=== PATIENT | male | born 1980 | race Caucasian/White ===

== ENCOUNTER 2020-11-24 17:26 | Emergency (ER) | payer MEDICARE, MEDICAID, SELFPAY ==
--- NOTE | 2020-11-24 17:58 | XRR_ITS ---
PROCEDURE INFORMATION: Exam: XR Chest Exam date and time: 11/24/2020 6:08 PM Age: 40 years old Clinical indication: Patient HX: Was in hospital 1 month ago; Was told has chf. Had gb surgery. C/O still having shortness of breath and getting worse; Additional info: Cp TECHNIQUE: Imaging protocol: XR of the chest. Views: 1 view. COMPARISON: No relevant prior studies available. FINDINGS: Lungs: Unremarkable. No consolidation. Pulmonary vascularity is within normal limits. Pleural spaces: Unremarkable. No pleural effusion. No pneumothorax. Heart/Mediastinum: There is cardiomegaly. Bones/joints: No acute abnormality. XR/XR chest 1V portable [id number] IMPRESSION: No acute findings.
--- NOTE | 2020-11-24 17:58 | ECG_ITS ---
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 Measurements Intervals [place] Rate: 74 P: 54 VA: 159 QRS: -27 QRSD: 113 T: 41 QT: 355 QTc: 395 Interpretive Statements SINUS RHYTHM POSSIBLE LEFT ATRIAL ENLARGEMENT [-0.1mV P WAVE IN V1/V2] MODERATE INTRAVENTRICULAR CONDUCTION DELAY [105+ ms QRS DURATION, 80+ ms Q/S IN V1/V2, NO Q AND 60+ ms R IN I/aVL/V5/V6] MODERATE T-WAVE ABNORMALITY, CONSIDER LATERAL ISCHEMIA [-0.1+ mV T WAVE IN I/aVL/V5/V6] WARNING: DATA QUALITY MAY AFFECT INTERPRETATION No previous ECG available for comparison Electronically Signed On 11-25-2020 9:22:01 CDT by Fanny Moran M.D. [email or web address] [employer] a Man./store/[id number]
[2020-11-24 18:06] VITALS: BP 159/103; PULSE 90; RESP 14; TEMP 36.6; O2SAT 98; BMI 34.8
--- NOTE | 2020-11-24 19:58 | ECG_ITS ---
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 Measurements Intervals [place] Rate: 81 P: 60 CO: 168 QRS: -20 QRSD: 105 T: 44 QT: 375 QTc: 437 Interpretive Statements SINUS RHYTHM POSSIBLE LEFT ATRIAL ENLARGEMENT [-0.1mV P WAVE IN V1/V2] NONSPECIFIC T-WAVE ABNORMALITY Compared to ECG 11/24/2020 19:16:24 Intraventricular conduction delay no longer present Possible ischemia no longer present T-wave abnormality still present Electronically Signed On 11-25-2020 17:37:13 CDT by Fanny Moran M.D. [id number]
[2020-11-24 20:53] VITALS: BP 160/100; PULSE 83; RESP 21; O2SAT 100
[2020-11-24 21:32] VITALS: BP 151/83; PULSE 84; RESP 17; O2SAT 100
[2020-11-24 22:03] LABS: Basophils # 0.1 10^3/uL (0.0-0.1); Basophils % 0.5 %; Eosinophils # 0.3 10^3/uL (0.0-0.8); Eosinophils % 2.9 %; Hematocrit 46.2 % (42.0-52.0); Hemoglobin 15.3 g/dL (11.7-16.6); Lymphocytes # 4.3 10^3/uL (0.8-4.8); Lymphocytes % 37.9 %; Mean Corpuscular HGB Conc 33.1 g/dL (30.0-36.0); Mean Corpuscular Hemoglobin 27.8 pg (28.0-34.0); Mean Corpuscular Volume 83.8 fL (80-94); Mean Platelet Volume 9.8 fL (7.4-10.4); Monocytes # 0.7 10^3/uL (0.2-0.9); Monocytes % 6.3 %; Neutrophils % 51.9 %; Nucleated Red Blood Cells % 0 %; Platelet Count 257 10^3/cmm (130-400); Red Blood Count 5.51 10^6/uL (4.1-5.3); Red Cell Distribution Width 14.1 % (12.1-15.1); White Blood Count 11.2 10^3/uL (4.0-10.0)
[2020-11-24 22:16] LABS: INR 0.97 (0.8-1.2)
[2020-11-24 22:19] LABS: D Dimer 0.31 ug/mIFEU (0-0.59)
[2020-11-24 22:21] LABS: Lactate (Lactic Acid level) 0.9 mmol/L (0.5-2.2)
[2020-11-24 22:24] LABS: Troponin(5th) Baseline 6 ng/L (0-15)
[2020-11-24 22:32] LABS: Alanine Aminotransferase 12 U/L (0-41); Albumin Level 4.5 g/dL (3.5-5.2); Alkaline Phosphatase 72 IU/L (40-130); Aspartate Amino Transferase 15 U/L (0-40); Blood Urea Nitrogen 14 mg/dL (6-20); Calcium 8.9 mg/dL (8.5-10.5); Carbon Dioxide 26 mmol/L (22-29); Chloride 102 mmol/L (98-107); Globulin 2.3 g/dL (1.3-4.6); Glomerular Filtration Rate 73.4 mL/min (90-130); Glucose 91 mg/dL (65-115); NT Pro B Type Natriuretic Pept 1618 pg/mL (0-125); Osmolality Calculated 286 mOsm/kg (285-295); Sodium 138 mmol/L (136-145); Total Bilirubin 0.4 mg/dL (0.15-1.2); Total Protein 6.8 g/dL (6.6-8.7)
[2020-11-24 22:33] LABS: Anion Gap 14.4 (5-19); Potassium 4.4 mmol/L (3.5-5.1)
[2020-11-24 23:11] VITALS: BP 135/91; PULSE 92; RESP 16; O2SAT 98
[2020-11-24 23:20] LABS: Troponin 5 2HR 10.18 ng/L (0-15); Troponin 5 2HR Delta 4.18 ABS# (0-10)
--- NOTE | 2020-11-24 23:37 | ED_ITS ---
HPI - General Adult General: Chief complaint: General Medical Stated complaint: FLUID AROUND HEART, SOB, STATES SENT BY PCP Time Seen by Provider: 11/24/20 20:51 History of Present Illness: HPI narrative: The patient is a 40-year-old male who comes to the ER complaining of shortness of breath related to his heart failure. He says he has been out of his medications for several days and needs refills on them. He sees a nougat cutter machine Dr. Carver in [place] and he will call him for refills tomorrow. Denies chest pain in the ER. He says he gets increasing shortness of breath which has been worsening with activity related to being out of his Lasix. The pharmacist got a list of his medications from the pharmacy and they will be printed for him. 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 Severity: moderate Associated symptoms: Reports no associated symptoms and short of breath; Deny chest pain, confusion, dyspnea, headache(s) or rash Review of Systems General: Reports: 10 or more systems reviewed and unremarkable except in HPI and below Const: Denies: fatigue Eyes: Denies: change in vision, blurry vision or eye redness ENMT: Denies: throat pain, swelling of lips/tongue, ear or mastoid pain or nasal congestion Card: Denies: chest pain Resp: Reports: other (dyspnea on exertion only.); Denies: dyspnea, productive cough or non-productive cough GI: Denies: abdominal pain, diarrhea or GI cramping : Denies: flank pain, urinary frequency or urinary urgency Musc: Denies: neck pain, back pain, extremity pain, joint pain, joint redness, limited range of motion or muscle weakness Skin/Breast: Denies: rash, pruritus, erythema, skin pain or skin tenderness Neuro: Denies: headache(s), numbness in extremities, weakness in extremities, sensory changes, difficulty walking, dizziness, confusion or Slurred speech present Psych: Denies: anxiety or depression Endo: Denies: polyuria All/Imm: Denies: urticaria, throat swelling or tongue swelling Physical Exam Const: COMMON NORMALS: no acute distress, average body habitus, patient oriented x3, no limitations, healthy appearing, alert and well nourished GENERAL APPEARANCE: cooperative, comfortable, well kempt and well developed ORIENTATION/CONSCIOUSNESS: Yes awake, Yes oriented to person, Yes oriented to place and Yes oriented to time HENMT: COMMON NORMALS: normocephalic, external ears normal and Normal external nose present HEAD & SCALP: normal to inspection and normocephalic NOSE: Normal external nose present EXTERNAL EAR: Yes external ears normal MOUTH: Normal oral and palatal mucosa present THROAT: posterior oropharynx normal Eye: COMMON NORMALS: Equal, round and reactive pupils present and EOMs intact bilaterally GENERAL EYE: appearance normal, both eyes and all related structures PUPIL: Yes Equal, round and reactive pupils present Neck/C-Spine: COMMON NORMALS: full ROM, no lymphadenopathy, no meningeal signs and no JVD GENERAL: Yes normal visual inspection Lymph: LYMPHATIC: no lymphadenopathy noted Chest: COMMONS NORMALS: normal inspection of the chest and normal palpation of entire chest wall Resp: COMMON NORMALS: normal respiratory effort, No retractions, No use of accessory muscles, clear to auscultation bilaterally and percussion normal EFFORT & INSPECTION: Yes able to speak in complete sentences AUSCULTATION: clear to auscultation bilaterally PERCUSSION: percussion normal Cardio: COMMON NORMALS: no JVD, regular rate, regular rhythm, S1 normal heart sound present, S2 normal heart sound present and Peripheral pulses 2+ throughout RATE: regular rate RHYTHM: regular rhythm HEART SOUNDS: S1 normal heart sound present and S2 normal heart sound present PERIPHERAL PULSES: Peripheral pulses 2+ throughout GI: COMMON NORMALS: Normal to inspection, nondistended, normoactive bowel sounds present, Soft to palpation, non-tender and no masses INSPECTION: Yes normal to inspection PALPATION: Yes Soft to palpation : COMMON NORMALS: Yes no CVA tenderness BLADDER/KIDNEY EXAM: Yes no CVA tenderness Back/Pelvis: COMMON NORMALS: no CVA tenderness, thoracic and lumbar spine normal to inspection, no thoracic nor lumbar tenderness and thoraco-lumbar ROM normal Extremity: COMMON NORMALS: normal to inspection, full ROM, capillary refill normal, no joint enlargement and no pedal edema GENERAL: Yes normal exam except as noted Neuro: COMMON NORMALS: patient oriented x3, CN's II-XII intact bilaterally, moves all extremities, no focal motor deficits, no sensory deficits noted and gait normal SENSORIUM/ORIENTATION: Yes alert, Yes oriented to person, Yes oriented to place and Yes oriented to time MENINGEAL SIGNS: Yes no meningeal signs Psych: COMMON NORMALS: mental status grossly normal, Normal thought process present, cooperative, normal affect and speech normal APPEARANCE: Yes well kempt ATTITUDE: Yes calm SPEECH: Yes normal speech THOUGHT PROCESS: N ormal thought process present Skin: COMMON NORMALS: no rashes or lesions noted GENERAL SKIN EXAM: no rashes or lesions noted Course Vital Signs: Vital signs: Vital Signs Temperature 97.9 F 11/24/20 18:06 Pulse Rate 92 11/24/20 23:11 Respiratory Rate 16 11/24/20 23:11 Blood Pressure 135/91 11/24/20 23:11 Pulse Oximetry 98 11/24/20 23:11 MDM - General Adult MDM Narrative: Medical decision making narrative: The patient is a 40-year-old male with chronic CHF out of his medications for nearly a week. He comes in for medication refill and complaining of increasing shortness of breath with exertion. Labs have been mostly normal except elevated BN P which is consistent with his situation. We will give him a pill of Lasix here and send him home with some refills. He will call Dr. Carver tomorrow for refills. ER with worsening symptoms Lab Data: Labs: Lab Results 11/24/20 11/24/20 11/24/20 Range/Units 21:55 21:55 21:55 WBC 11.2 H (4.0-10.0) 10^3/ uL RBC 5.51 H (4.1-5.3) 10^6/u L Hgb 15.3 (11.7-16.6) g/dL Hct 46.2 (42.0-52.0) % MCV 83.8 (80-94) fL MCH 27.8 L (28.0-34.0) pg MCHC 33.1 (30.0-36.0) g/dL RDW 14.1 (12.1-15.1) % Plt Count 257 (130-400) 10^3/c mm MPV 9.8 (7.4-10.4) fL Neut % (Auto) 51.9 % Lymph % (Auto) 37.9 % [place] % (Auto) 6.3 % Eos % (Auto) 2.9 % Baso % (Auto) 0.5 % Neut # (Auto) 5.80 (1.8-7.7) 10^3/u L Lymph # (Auto) 4.3 (0.8-4.8) 10^3/u L [place] # (Auto) 0.7 (0.2-0.9) 10^3/u L Eos # (Auto) 0.3 (0.0-0.8) 10^3/u L Baso # (Auto) 0.1 (0.0-0.1) 10^3/u L Nucleated RBC % (a uto) 0 % Nucleated RBCs # 0.0 /100WBC PT 13.20 (12.1-14.9) SECO NDS INR 0.97 (0.8-1.2) D-Dimer 0.31 (0-0.59) ug/mIFE U Sodium 138 (136-145) mmol/L Potassium 4.4 (3.5-5.1) mmol/L Chloride 102 (98-107) mmol/L Carbon Dioxide 26 (22-29) mmol/L Anion Gap 14.4 (5-19) BUN 14 (6-20) mg/dL Creatinine 1.1 (0.7-1.2) mg/dL GFR Calculation 73.4 L (90-130) mL/min Glucose 91 (65-115) mg/dL Calculated Osmolal ity 286 (285-295) mOsm/k g Lactate (0.5-2.2) mmol/L Calcium 8.9 (8.5-10.5) mg/dL Total Bilirubin 0.4 (0.15-1.2) mg/dL AST 15 (0-40) U/L ALT 12 (0-41) U/L Alkaline Phosphata se 72 (40-130) IU/L Troponin T Baselin e (0-15) ng/L Troponin T 120 Min [place] (0-15) ng/L Delta Troponin T (0-10) ABS# NT-Pro-B Natriuret Pep 1618 H (0-125) pg/mL Total Protein 6.8 (6.6-8.7) g/dL Albumin 4.5 (3.5-5.2) g/dL Globulin 2.3 (1.3-4.6) g/dL 11/24/20 11/24/20 11/24/20 Range/Units 21:55 21:55 22:55 WBC (4.0-10.0) 10^3/ uL RBC (4.1-5.3) 10^6/u L Hgb (11.7-16.6) g/dL Hct (42.0-52.0) % MCV (80-94) fL MCH (28.0-34.0) pg MCHC (30.0-36.0) g/dL RDW (12.1-15.1) % Plt Count (130-400) 10^3/c mm MPV (7.4-10.4) fL Neut % (Auto) % Lymph % (Auto) % [place] % (Auto) % Eos % (Auto) % Baso % (Auto) % Neut # (Auto) (1.8-7.7) 10^3/u L Lymph # (Auto) (0.8-4.8) 10^3/u L [place] # (Auto) (0.2-0.9) 10^3/u L Eos # (Auto) (0.0-0.8) 10^3/u L Baso # (Auto) (0.0-0.1) 10^3/u L Nucleated RBC % (a uto) % Nucleated RBCs # /100WBC PT (12.1-14.9) SECO NDS INR (0.8-1.2) D-Dimer (0-0.59) ug/mIFE U Sodium (136-145) mmol/L Potassium (3.5-5.1) mmol/L Chloride (98-107) mmol/L Carbon Dioxide (22-29) mmol/L Anion Gap (5-19) BUN (6-20) mg/dL Creatinine (0.7-1.2) mg/dL GFR Calculation (90-130) mL/min Glucose (65-115) mg/dL Calculated Osmolal ity (285-295) mOsm/k g Lactate 0.9 (0.5-2.2) mmol/L Calcium (8.5-10.5) mg/dL Total Bilirubin (0.15-1.2) mg/dL AST (0-40) U/L ALT (0-41) U/L Alkaline Phosphata se (40-130) IU/L Troponin T Baselin e 6 (0-15) ng/L Troponin T 120 Min [place] 10.18 (0-15) ng/L Delta Troponin T 4.18 (0-10) ABS# NT-Pro-B Natriuret Pep (0-125) pg/mL Total Protein (6.6-8.7) g/dL Albumin (3.5-5.2) g/dL Globulin (1.3-4.6) g/dL Discharge Plan Discharge Patient Disposition: Home Clinical Impression: CHF (congestive heart failure), Medicine refill Condition: Stable Prescriptions: Continued cyclobenzaprine 10 mg tablet 10 mg PO TID PRN (Reason: MUSCLE CRAMPS) RF: 0 Carafate 1 gram tablet 1 g PO QID RF: 0 furosemide 40 mg tablet 40 mg PO DAILY Qty: 14 RF: 0 spironolactone 25 mg tablet 25 mg PO DAILY Qty: 14 RF: 0 lisinopril 5 mg tablet 5 mg PO DAILY Qty: 14 RF: 0 metoprolol succinate 25 mg tablet extended release 24 hr 25 mg PO DAILY Qty: 14 RF: 0 albuterol sulfate 90 mcg/actuation HFA aerosol inhaler 2 puff INHALATION QID PRN (Reason: Wheezing) 30 Days RF: 0 Dulera 100-5 mcg/actuation HFA aerosol inhaler 2 puff INHALATION BID 30 Days RF: 0 Discharge Orders: Discharge ED (Routine); Ordered 11/24/20 Ordered By: Johnny Lopez Referrals: Thomas Wagoner, [Primary Care Provider] - Discharge Diet: Advance as tolerated Discharge Activity: Resume usual activity Patient Instructions: Heart Failure (ED), Opioid Safety Activity Restrictions/Additional Instructions: You have chronic congestive heart failure. You are not currently having a heart attack in the ED today. Your EKG and troponins have been normal x2. Please call Dr. Carver tomorrow for refills of your prescriptions and return to the ER at anytime with chest pain. It is important to see your nougat cutter machine and get an echocardiogram done to tell the function of your heart as well. Coding Level of Care Code ED Tile Layer Drainage for Adilson Cedillo
[2020-11-24] MEDS: FUROsemide 40 mg Tablet PO (23:38)
[2020-11-25] VITALS: BP 145/95; PULSE 88; RESP 20; O2SAT 96
== END 2020-11-24 23:45 | disposition home or self-care (01) ==
PROVIDERS: Emergency Medicine; Emergency Provider Family Medicine; PCP Family Medicine
DX: I11.0 Hypertensive heart disease with heart failure (principal); I50.9 Heart failure, unspecified; Z76.0 Encounter for issue of repeat prescription; R07.9 Chest pain, unspecified
CPT/HCPCS: 71045; 80053; 83605; 83880; 84484; 85025; 85378; 85610; 93005; 99284

== ENCOUNTER 2021-06-16 21:08 | Emergency (ER) | payer MEDICARE, MEDICAID, SELFPAY ==
[2021-06-16 21:09] VITALS: BP 147/100; PULSE 107; RESP 18; TEMP 37; O2SAT 100; BMI 33.7
--- NOTE | 2021-06-16 21:10 | XRR_ITS ---
PROCEDURE INFORMATION: Exam: XR Chest Exam date and time: 06/16/2021 9:10 PM Age: 41 years old Clinical indication: Chest wall pain; Prior surgery; Surgery date: 6+ months; Surgery type: Stents; Additional info: Chest pain TECHNIQUE: Imaging protocol: XR of the chest. Views: 1 view. COMPARISON: CR XR chest 1V portable [id number] 11/24/2020 7:04 PM FINDINGS: Lungs: Lungs are clear bilaterally. Pleural spaces: No pleural effusion. No pneumothorax. Heart/Mediastinum: Stable moderate enlargement of the cardiac silhouette. Mediastinal contours are unremarkable. Bones/joints: Unremarkable for age. Soft tissues: The patient has a left nipple piercing, findings are stable. XR/XR chest 1V portable [id number] IMPRESSION: 1. No acute cardiopulmonary process. 2. Incidental/nonacute findings are listed in the report. Radiation Dose CTDIVOL = (mGy): DLP = (mGy-cm)
--- NOTE | 2021-06-16 21:10 | ECG_ITS ---
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 Measurements Intervals [place] Rate: 100 P: 51 [place]: 163 QRS: -32 QRSD: 110 T: 97 QT: 341 QTc: 440 Interpretive Statements SINUS TACHYCARDIA LEFT ATRIAL ENLARGEMENT [-0.15mV P-WAVE IN V1/V2] LEFT AXIS DEVIATION [QRS AXIS < -30] NONSPECIFIC ST & T-WAVE ABNORMALITY Compared to ECG 11/24/2020 21:48:12 Left-axis deviation now present Sinus rhythm no longer present T-wave abnormality still present Electronically Signed On 06-17-2021 9:58:32 BOARD DESIGN ENGINEER by Fanny Moran M.D. [id number] f
[2021-06-16 21:27] LABS: Basophils # 0.1 10^3/uL (0.0-0.1); Basophils % 0.6 %; Eosinophils # 0.2 10^3/uL (0.0-0.8); Eosinophils % 1.4 %; Hematocrit 43.3 % (42.0-52.0); Hemoglobin 14.3 g/dL (11.7-16.6); Lymphocytes # 3.2 10^3/uL (0.8-4.8); Lymphocytes % 21.7 %; Mean Corpuscular Hemoglobin 27.7 pg (28.0-34.0); Mean Corpuscular Volume 83.9 fl (80-94); Mean Platelet Volume 9.8 fL (7.4-10.4); Monocytes # 0.8 10^3/uL (0.2-0.9); Monocytes % 5.2 %; Neutrophils # 10.25 10^3/uL (1.8-7.7); Neutrophils % 70.5 %; Nucleated Red Blood Cells % 0 %; Platelet Count 334 10^3/cmm (130-400); Red Blood Count 5.16 10^6/uL (4.1-5.3); Red Cell Distribution Width 13.8 % (12.1-15.1); White Blood Count 14.5 10^3/uL (4.0-10.0)
[2021-06-16 21:47] LABS: Troponin(5th) Baseline 19 ng/L (0-15)
[2021-06-16 21:54] LABS: Alanine Aminotransferase 23 U/L (0-41); Albumin Level 3.8 g/dL (3.5-5.2); Alkaline Phosphatase 91 IU/L (40-130); Anion Gap 19.3 (5-19); Aspartate Amino Transferase 12 U/L (0-40); Blood Urea Nitrogen 17 mg/dL (6-20); Calcium 8.7 mg/dL (8.5-10.5); Carbon Dioxide 20 mmol/L (22-29); Chloride 102 mmol/L (98-107); Globulin 2.7 g/dL (1.3-4.6); Glomerular Filtration Rate 66.1 mL/min (90-130); Glucose 92 mg/dL (65-115); NT Pro B Type Natriuretic Pept 4934 pg/mL (0-125); Osmolality Calculated 285 mOsm/kg (285-295); Potassium 4.3 mmol/L (3.5-5.1); Sodium 137 mmol/L (136-145); Total Bilirubin 0.5 mg/dL (0.15-1.2); Total Protein 6.5 g/dL (6.6-8.7)
[2021-06-16 22:00] VITALS: PULSE 93
--- NOTE | 2021-06-16 22:15 | W.ED.CHESTPA ---
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 He states he has been having chest pain over the last few days he was seen at [facility] yesterday had a normal work-up was given IV Lasix patient denies any worsening improving factors. He states he believes he may have passed out an hour ago but he is not sure. He has had mild shortness of breath no increased swelling denies any vomiting or diarrhea. Associated symptoms: Deny abdominal pain, dyspnea, fever(s), nausea or vomiting Review of Systems Const: Denies: fever(s), chills, body aches or change in appetite Eyes: Denies: blurry vision or eye discomfort ENMT: Denies: throat pain or dental pain Card: Reports: chest pain Resp: Denies: dyspnea GI: Denies: abdominal pain, nausea, vomiting or diarrhea : Denies: dysuria Musc: Denies: neck pain or back pain Skin/Breast: Denies: rash Neuro: Denies: headache(s) Psych: Denies: depression Adam/Lymph: Denies: easy bruising All/Imm: Denies: urticaria Physical Exam Const: COMMON NORMALS: no acute distress, patient oriented x3 and healthy appearing HENMT: COMMON NORMALS: normocephalic and atraumatic HEAD & SCALP: normocephalic and atraumatic Eye: COMMON NORMALS: Equal, round and reactive pupils present and EOMs intact bilaterally PUPIL: Yes Equal, round and reactive pupils present Neck/C-Spine: COMMON NORMALS: full ROM and supple Chest: COMMONS NORMALS: normal inspection of the chest and normal palpation of entire chest wall Resp: COMMON NORMALS: normal respiratory effort, No retractions, No use of accessory muscles and clear to auscultation bilaterally AUSCULTATION: clear to auscultation bilaterally Cardio: COMMON NORMALS: regular rate, regular rhythm and No murmurs present (Cardio) RATE: regular rate RHYTHM: regular rhythm GI: COMMON NORMALS: Normal to inspection, nondistended, normoactive bowel sounds present, Soft to palpation, non-tender and no masses PALPATION: Yes Soft to palpation Extremity: COMMON NORMALS: normal to inspection and full ROM Neuro: COMMON NORMALS: patient oriented x3, moves all extremities and no focal motor deficits Psych: COMMON NORMALS: mental status grossly normal, Normal thought process present and cooperative THOUGHT PROCESS: Normal thought process present Skin: COMMON NORMALS: no rashes or lesions noted and no wounds GENERAL SKIN EXAM: no rashes or lesions noted Course Vital Signs: Vital signs: Vital Signs Temperature 98.6 F 06/16/21 21:09 Pulse Rate 91 06/17/21 00:00 Respiratory Rate 18 06/17/21 00:00 Blood Pressure 140/100 06/17/21 00:00 Pulse Oximetry 97 06/17/21 00:00 MDM - Chest Pain MDM Narrative: Medical decision making narrative: Patient presents with chest pain is very atypical in nature repeat troponin shows no change does have a history congestive heart failure urinated over a liter out after Lasix he does have Lasix at home he is in no sign of severe failure I feel he stable for discharge his D-dimer is negative he is to follow-up with PCP in 3 to 5 days return if worsening he understands agrees to plan he does have Lasix at home needs to take his prescribed Lab Data: Labs: Lab Results 06/16/21 06/16/21 06/16/21 21:20 21:24 21:24 WBC 14.5 10^3/uL H 10 ^3/uL (4.0-10.0) RBC 5.16 10^6/uL 10^6 /uL (4.1-5.3) Hgb 14.3 g/dL g/dL (11.7-16.6) Hct 43.3 % % (42.0-52.0) MCV 83.9 fl fl (80-94) MCH 27.7 pg L pg (28.0-34.0) MCHC 33.0 g/dL g/dL (30.0-36.0) RDW 13.8 % % (12.1-15.1) Plt Count 334 10^3/cmm 10^3 /cmm (130-400) MPV 9.8 fL fL (7.4-10.4) Neut % (Auto) 70.5 % % Lymph % (Auto) 21.7 % % [place] % (Auto) 5.2 % % Eos % (Auto) 1.4 % % Baso % (Auto) 0.6 % % Neut # (Auto) 10.25 10^3/uL H 1 0^3/uL (1.8-7.7) Lymph # (Auto) 3.2 10^3/uL 10^3/ uL (0.8-4.8) [place] # (Auto) 0.8 10^3/uL 10^3/ uL (0.2-0.9) Eos # (Auto) 0.2 10^3/uL 10^3/ uL (0.0-0.8) Baso # (Auto) 0.1 10^3/uL 10^3/ uL (0.0-0.1) Nucleated RBC % (a uto) 0 % % Nucleated RBCs # 0.0 /100WBC /100W BC D-Dimer 0.55 ug/mIFEU ug/ mIFEU (0-0.59) Sodium 137 mmol/L mmol/L (136-145) Potassium 4.3 mmol/L mmol/L (3.5-5.1) Chloride 102 mmol/L mmol/L (98-107) Carbon Dioxide 20 mmol/L L mmol/ L (22-29) Anion Gap 19.3 H (5-19) BUN 17 mg/dL mg/dL (6-20) Creatinine 1.2 mg/dL mg/dL (0.7-1.2) GFR Calculation 66.1 mL/min L mL/ min (90-130) Glucose 92 mg/dL mg/dL (65-115) Calculated Osmolal ity 285 mOsm/kg mOsm/ kg (285-295) Calcium 8.7 mg/dL mg/dL (8.5-10.5) Total Bilirubin 0.5 mg/dL mg/dL (0.15-1.2) AST 12 U/L U/L (0-40) ALT 23 U/L U/L (0-41) Alkaline Phosphata se 91 IU/L IU/L (40-130) Troponin T Baselin e Troponin T 120 Min three affiliated Delta Troponin T NT-Pro-B Natriuret Pep 4934 pg/mL H pg/m L (0-125) Total Protein 6.5 g/dL L g/dL (6.6-8.7) Albumin 3.8 g/dL g/dL (3.5-5.2) Globulin 2.7 g/dL g/dL (1.3-4.6) 06/16/21 06/16/21 21:24 23:24 WBC RBC Hgb Hct MCV MCH MCHC RDW Plt Count MPV Neut % (Auto) Lymph % (Auto) [place] % (Auto) Eos % (Auto) Baso % (Auto) Neut # (Auto) Lymph # (Auto) [place] # (Auto) Eos # (Auto) Baso # (Auto) Nucleated RBC % (a uto) Nucleated RBCs # D-Dimer Sodium Potassium Chloride Carbon Dioxide Anion Gap BUN Creatinine GFR Calculation Glucose Calculated Osmolal ity Calcium Total Bilirubin AST ALT Alkaline Phosphata se Troponin T Baselin e 19 ng/L H ng/L (0-15) Troponin T 120 Min three affiliated 18.96 ng/L H ng/L (0-15) Delta Troponin T -0.04 ABS# L ABS# (0-10) NT-Pro-B Natriuret Pep Total Protein Albumin Globulin Imaging Data^: CXR: Attestation: I personally reviewed and interpreted this imaging study as follows: My impression: no acute abnormality EKG Data^: EKG 1: Attestation: I personally reviewed and interpreted this EKG as follows: EKG interpretation date: 06/16/21 EKG interpretation time: 21:14 Interpretation: sinus tach hr [address] or t wave abnormalities qrs 110 qtc 398 EKG 2: Attestation: I personally reviewed and interpreted this EKG as follows: EKG interpretation date: 06/16/21 EKG interpretation time: 23:36 Interpretation: nsr hr 89 no stemi qrs 114 qtc 417 Discharge Plan Discharge Patient Disposition: Home Clinical Impression: Chest pain Qualifiers: Chest pain type: unspecified Qualified Code(s): R07.9 - Chest pain, unspecified Condition: Stable Prescriptions: No Action furosemide 40 mg tablet 40 mg PO DAILY Qty: 14 RF: 0 lisinopril 5 mg tablet 5 mg PO DAILY Qty: 14 RF: 0 albuterol sulfate 90 mcg/actuation HFA aerosol inhaler 2 puff INHALATION QID PRN (Reason: Wheezing) 30 Days RF: 0 Dulera 100-5 mcg/actuation HFA aerosol inhaler 2 puff INHALATION BID 30 Days RF: 0 Discharge Orders: Discharge ED (Routine); Ordered 06/17/21 Ordered By: Diana Perez Referrals: Thomas Wagoner DO [Primary Care Provider] - 1-3 days Discharge Diet: Advance as tolerated Discharge Activity: Resume usual activity Patient Instructions: Chest Pain (ED) Coding Level of Care Code ED Flight Test Supervisor for Chg Fwd Exam Comprehensive
[2021-06-16 22:34] LABS: D Dimer 0.55 ug/mIFEU (0-0.59)
[2021-06-16] MEDS: FUROsemide 10 mg/mL SDV 4mL 40 MG IVP (22:55)
[2021-06-16 23:15] VITALS: BP 124/85; PULSE 93; RESP 18; O2SAT 95
[2021-06-16] MEDS: labetalol 5 mg/mL SDV 20mL 10 MG IVP (23:40)
[2021-06-17] VITALS: BP 140/100; PULSE 91; RESP 18; O2SAT 97
[2021-06-17] LABS: Troponin 5 2HR 18.96 ng/L (0-15)
[2021-06-17 00:10] LABS: Troponin 5 2HR Delta -0.04 ABS# (0-10)
--- NOTE | 2021-06-17 00:12 | PC.NURSE ---
Report to JEAN CLAUDE Vargas.
[2021-06-17 00:20] VITALS: PULSE 78; RESP 18; O2SAT 100
== END 2021-06-17 00:23 | disposition home or self-care (01) ==
PROVIDERS: Nurse Practitioner Family; Emergency Provider Emergency Medicine; PCP Family Medicine
DX: R07.9 Chest pain, unspecified (principal)
CPT/HCPCS: 71045; 80053; 83880; 84484; 85025; 85378; 93005; 96374; 96375; 99284; J1940; J3490

== ENCOUNTER 2021-12-19 11:16 | Emergency (ER) | payer MEDICARE, MEDICAID, SELFPAY ==
--- NOTE | 2021-12-19 11:18 | XRR_ITS ---
PROCEDURE INFORMATION: Exam: XR Right Hand Exam date and time: 12/19/2021 11:43 AM Age: 41 years old Clinical indication: Swollen finger. Right finger pain. TECHNIQUE: Imaging protocol: XR Right hand. Views: 3 or more views. COMPARISON: No relevant prior studies available. FINDINGS: Bones/joints: The scapholunate and lunotriquetral intervals are maintained. No chondrocalcinosis is seen. 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 No acute fracture, dislocation or subluxation is seen. Soft tissues: No definite soft tissue swelling. XR/XR hand RT min 3V* [id number] IMPRESSION: No acute fracture is seen.
[2021-12-19 11:37] VITALS: BP 176/109; PULSE 75; RESP 16; TEMP 36.8; O2SAT 97
--- NOTE | 2021-12-19 11:58 | W.ED.EXTPRO ---
HPI - Extremity Problem General: Chief complaint: Extremity Injury, Upper Stated complaint: Cant bend finger on r hand, swollen Time Seen by Provider: 12/19/21 11:54 History of Present Illness: Patient is a 41-year-old male comes to the ED with right hand pain and swelling. Denies any known recent injury or trauma to cause pain and swelling. Pain and swelling is in third digit of right hand. He rates his pain currently a 10 out of 10. Symptoms started this morning. Patient does state that he had surgery on third digit of right hand several years ago to repair a tendon. Associated symptoms: Deny chest pain, fever(s) or rash Review of Systems Const: Denies: fever(s), chills or fatigue Eyes: Denies: change in vision or eye discomfort ENMT: Denies: throat pain, odynophagia, nasal discharge or nasal congestion Card: Denies: chest pain, palpitations, edema, swelling of feet/ankles, dyspnea on exertion or orthopnea Resp: Denies: dyspnea, productive cough or non-productive cough GI: Denies: abdominal pain, nausea, vomiting, diarrhea, constipation or hematochezia : Denies: flank pain, difficulty urinating, dysuria or hematuria Musc: Reports: extremity pain (right hand-3rd digit); Denies: neck pain, back pain or extremity swelling Skin/Breast: Denies: rash or new lesions Neuro: Denies: headache(s), numbness in extremities or weakness in extremities [facility] ED PFSH: Medical History GERD (gastroesophageal reflux disease) T2DM (type 2 diabetes mellitus) Surgical History S/P tendon repair Physical Exam Const: COMMON NORMALS: no acute distress, patient oriented x3 and alert GENERAL APPEARANCE: cooperative and comfortable HENMT: COMMON NORMALS: normocephalic HEAD & SCALP: normocephalic MOUTH: Normal oral and palatal mucosa present THROAT: posterior oropharynx normal and uvula midline Neck/C-Spine: COMMON NORMALS: supple GENERAL: Yes normal visual inspection Resp: COMMON NORMALS: normal respiratory effort, No retractions, No use of accessory muscles and clear to auscultation bilaterally AUSCULTATION: clear to auscultation bilaterally Cardio: COMMON NORMALS: regular rate, regular rhythm, S1 normal heart sound present, S2 normal heart sound present, No gallops present (Cardio), No clicks present (Cardio), No murmurs present (Cardio) and Peripheral pulses 2+ throughout RATE: regular rate RHYTHM: regular rhythm HEART SOUNDS: S1 normal heart sound present and S2 normal heart sound present PERIPHERAL PULSES: Peripheral pulses 2+ throughout GI: COMMON NORMALS: Normal to inspection, nondistended, normoactive bowel sounds present, Soft to palpation, non-tender and no masses PALPATION: Yes Soft to palpation : COMMON NORMALS: Yes no CVA tenderness BLADDER/KIDNEY EXAM: Yes no CVA tenderness Back/Pelvis: COMMON NORMALS: no CVA tenderness Extremity: NARRATIVE EXTREMITY EXAM: Right hand?third digit-PIP joint has some mild swelling and tenderness noted. No other acute findings seen. Neuro: COMMON NORMALS: patient oriented x3 and moves all extremities SENSORIUM/ORIENTATION: Yes alert Skin: GENERAL SKIN EXAM: dry skin Course Vital Signs: Vital signs: Vital Signs Temperature 98.2 F 12/19/21 11:37 Pulse Rate 76 12/19/21 13:03 Respiratory Rate 16 12/19/21 13:03 Blood Pressure 181/116 12/19/21 13:03 Pulse Oximetry 98 12/19/21 13:03 MDM - Extremity (Nontraumatic) Medical Decision Making Patient is a 41-year-old male comes to the ED with third digit on right hand pain and swelling. He has a history of an injury to that finger and had tendon repaired surgically several years ago. Denies any recent injury or trauma to the right hand or finger. Patient has some mild swelling and tenderness of PIP joint on third digit of right hand. No other acute findings noted. X-ray of right hand showed no acute fractures or findings. Patient diagnosed inflammation of the joint finger and was discharged home with a prescription for Celebrex and prednisone. He was told to follow-up with his PCP in the next week for reevaluation. Return to ED precautions given. Patient understood and agreed with plan. Lab Data Radiology Impressions Hand X-Ray 12/19/21 11:18 IMPRESSION: No acute fracture is seen. Discharge Plan Discharge Patient Disposition: Home Clinical Impression: Inflammation of joint of finger Qualifiers: Laterality: right Qualified Code(s): M19.041 - Primary osteoarthritis, right hand Condition: Stable Prescriptions: New Celebrex 100 mg capsule 100 mg PO BID PRN (Reason: pain) Qty: 30 0RF prednisone 20 mg tablet 20 mg PO BID 7 Days Qty: 14 0RF No Action furosemide 40 mg tablet 40 mg PO DAILY Qty: 14 0RF lisinopril 5 mg tablet 5 mg PO DAILY Qty: 14 0RF albuterol sulfate 90 mcg/actuation HFA aerosol inhaler 2 puff INHALATION QID PRN (Reason: Wheezing) 30 Days 0RF Dulera 100-5 mcg/actuation HFA aerosol inhaler 2 puff INHALATION BID 30 Days 0RF Discharge Orders: Discharge ED (Routine); Ordered 12/19/21 Ordered By: Sam Wang Referrals: Thomas Wagoner, [Primary Care Provider] - Discharge Diet: Regular Discharge Activity: Increase activity as tolerated Activity Restrictions/Additional Instructions: Follow-up with medical provider as directed in the next 5 to 7 days reevaluation. Take medications as prescribed. Apply cold pack on finger multiple times a day to help with swelling. Return to the ER or your medical provider if condition worsens. Please read and understand discharge instructions. Thank you for choosing [facility] for your healthcare needs today. Please realize this is an emergency room and that we are providing you with a medical screening exam and this may not be complete and all inclusive of all the testing and or work up that you may need to determine your ailment or severity of your illness. It is very important that you follow up as instructed or that you return to the Emergency Department should you have concerns or if your condition changes or worsens in any way. Coding Level of Care Code ED Yeast Distiller for Adilson Cedillo Exam Comprehensive
[2021-12-19] MEDS: ketorolac 60 mg/2 mL INJ IM (12:26)
[2021-12-19 13:03] VITALS: BP 181/116; PULSE 76; RESP 16; O2SAT 98
== END 2021-12-19 13:04 | disposition home or self-care (01) ==
PROVIDERS: Emergency Provider Physician Assistant; PCP Family Medicine
DX: M19.041 Primary osteoarthritis, right hand (principal)
CPT/HCPCS: 73130; 96372; 99283; J1885; J2930

== ENCOUNTER 2022-03-04 15:11 | Observation (INO) | payer MEDICARE, MEDICAID, SELFPAY ==
[2022-03-04] VITALS (11 sets, daily range): BP systolic 92–145; BP diastolic 57–93; PULSE 52–85; RESP 12–21; TEMP 36.4–36.6; O2SAT 93–97; BMI 34.2
--- NOTE | 2022-03-04 15:14 | XR_ITS ---
WS: [id number] Portable AP upright chest, 03/04/2022 Clinical Data: chest pain Comparison: Portable chest, 06/16/2021. Findings: No nodules, masses or effusions are seen. The heart is at the upper limits of normal. The p ulmonary vascularity is not increased. No pneumonia or pneumothorax is seen. Monitor leads are on the chest wall. There is a small artifact overlying the left lower chest wall. XR/XR chest 1V portable [id number] Impression: Negative chest.
--- NOTE | 2022-03-04 15:14 | ECG_ITS ---
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 Measurements Intervals [place] Rate: 67 P: 47 NM: 159 QRS: -13 QRSD: 113 T: 46 QT: 386 QTc: 410 Interpretive Statements SINUS RHYTHM MODERATE INTRAVENTRICULAR CONDUCTION DELAY [110+ ms QRS DURATION] MODERATE T-WAVE ABNORMALITY, CONSIDER LATERAL ISCHEMIA [-0.1+ mV T WAVE IN I/aVL/V5/V6] Compared to ECG 06/16/2021 21:14:19 Intraventricular conduction delay now present Possible ischemia now present Sinus tachycardia no longer present Atrial abnormality no longer present Left-axis deviation no longer present T-wave abnormality still present Electronically Signed On 03-04-2022 22:44:52 CDT by Maeve Fernandez M.D. [id number]
--- NOTE | 2022-03-04 15:14 | W.ED.GENADLT ---
HPI - General Adult General: Chief complaint: Chest Pain Stated complaint: chest pain Time Seen by Provider: 03/04/22 15:13 History of Present Illness: CC: Chest Pain HPI: This is a 42yo patient hx of HTN, DM, CAD w/ stent x 1 followed by Cardiology in [place], [place] presenting to the ED complaining of onset of chest pressure around 11:00. Patient reports the pain is very similar to previous chest pressure when he had a stent in 2019. Patient reports pressure is squeezing intermittent associate with nausea vomiting. Pain is not tearing in nature and does not radiate to the back. Pain not associated with vomiting or PO intake. Denies any recent sympathomimetic drug use. Patient denies any cough. Denies palpitations, dysphagia, diaphoresis, radiation of pain to bilateral arms, jaw. Denies F/N/V/D. Patient denies any recent immobility, surgery, unilateral leg swelling, or prior PE. Patient denies any orthopnea. Onset: 11am Duration: ongoing since 11am Location: home Severity: moderate Associated symptoms: Reports chest pain; Deny dyspnea, nausea, rash, palpitations or vomiting Review of Systems Const: Denies: fever(s) or chills Eyes: Denies: change in vision ENMT: Denies: mouth pain Card: Reports: chest pain; Denies: palpitations Resp: Denies: dyspnea or non-productive cough GI: Denies: abdominal pain, nausea, vomiting or diarrhea : Denies: dysuria Musc: Denies: extremity pain Skin/Breast: Denies: rash or new lesions Neuro: Denies: weakness in extremities Psych: Reports: other (Normal mood) Adam/Lymph: Denies: easy bruising PFS ED PFSH: Medical History CAD (coronary artery disease) GERD (gastroesophageal reflux disease) Hypertension T2DM (type 2 diabetes mellitus) Surgical History S/P tendon repair Stented coronary artery Social History Smoking and tobacco status: current every day smoker Alcohol intake: never Substance/Drug Use: never Physical Exam Const: COMMON NORMALS: alert HENMT: COMMON NORMALS: atraumatic HEAD & SCALP: atraumatic MOUTH: moist mucous membranes not abnormal Eye: COMMON NORMALS: EOMs intact bilaterally and conjunctivae normal CONJUNCTIVA: Yes conjunctivae normal Neck/C-Spine: COMMON NORMALS: full ROM and supple Resp: COMMON NORMALS: normal respiratory effort and clear to auscultation bilaterally AUSCULTATION: clear to auscultation bilaterally Cardio: COMMON NORMALS: regular rate RATE: regular rate OTHER: 2+ radial pulses b/l GI: COMMON NORMALS: Soft to palpation and non-tender PALPATION: Yes Soft to palpation OTHER: No focal TTP. NO guarding rebound, guarding, rigidity. No CVA tenderness to percussion. Neg Pedroza/Neg McBurney's point tenderness, no suprabupic tenderness to palpation. Extremity: COMMON NORMALS: full ROM OTHER: No lower extremity edema b/l Neuro: SENSORIUM/ORIENTATION: Yes alert MOTOR EXAM: No Abnormal motor strength present and Other motor observations present (no focal motor deficits) Psych: COMMON NORMALS: speech normal SPEECH: Yes normal speech MOOD & AFFECT: Yes euthymic mood Course Vital Signs: Vital signs: Vital Signs Temperature 97.8 F 03/04/22 15:16 Pulse Rate 64 03/04/22 18:18 Respiratory Rate 16 03/04/22 18:18 Blood Pressure 145/83 03/04/22 18:18 Pulse Oximetry 97 03/04/22 18:18 Oxygen Delivery Me thod 03/04/22 18:18 MDM - General Adult Medical Decision Making [42]yo patient w/ hx of DM, HTN, CAD s/p stent x 1 presenting to the ED with evaluation of new onset chest pressure since 11am. HDS, pulse 2+ radially bilaterally, no signs of fluid overload, AAOx3, neuro exam intact. 2+ radial pulses. No lower extremity swelling. Patient has allergic reaction to aspirin and was not given. Patient was given nitro and morphine in route. On arrival, patient complained of 7 out of 10 chest pain. Patient received nitro and morphine with improvement in chest pain. Workup: ECG x2, CXR, CBC, BMP, Troponin x 2 Interventions: morphine, nitroSL Findings: ECG: No overt evidence of STEMI, hyperacute T waves, localizable STD or T wave inversions. No evidence of Brugada?s sign, delta wave, epsilon wave, significantly prolonged QTc, or malignant arrhythmia. No Q waves. Other Labs unremarkable for emergent problems. CXR: Without PTX, PNA, or widened mediastinum On reassessment at 4:10 PM, patient continues to have intermittent chest pressure despite multiple doses of nitro and morphine. Patient reports pain is currently 4 out of 10. Disposition: admission Lab Data : 03/04/22 15:30 03/04/22 15:30 Radiology Impressions Chest X-Ray 03/04/22 15:14 Impression: Negative chest. Laboratory Results WBC 11.6 10^3/uL (4.0-10.0) H 03/04/22 15:30 RBC 5.34 10^6/uL (4.1-5.3) H 03/04/22 15:30 Hgb 15.1 g/dL (11.7-16.6) 03/04/22 15:30 Hct 46.4 % (42.0-52.0) 03/04/22 15:30 MCV 86.9 fl (80-94) 03/04/22 15:30 MCH 28.3 pg (28.0-34.0) 03/04/22 15:30 MCHC 32.5 g/dL (30.0-36.0) 03/04/22 15:30 RDW 13.5 % (12.1-15.1) 03/04/22 15:30 Plt Count 264 10^3/cmm (130-400) 03/04/22 15:30 MPV 9.7 fL (7.4-10.4) 03/04/22 15:30 Neut % (Auto) 60.1 % 03/04/22 15:30 Lymph % (Auto) 28.1 % 03/04/22 15:30 [place] % (Auto) 6.1 % 03/04/22 15:30 Eos % (Auto) 4.1 % 03/04/22 15:30 Baso % (Auto) 0.7 % 03/04/22 15:30 Neut # (Auto) 6.95 10^3/uL (1.8-7.7) 03/04/22 15:30 Lymph # (Auto) 3.3 10^3/uL (0.8-4.8) 03/04/22 15:30 [place] # (Auto) 0.7 10^3/uL (0.2-0.9) 03/04/22 15:30 Eos # (Auto) 0.5 10^3/uL (0.0-0.8) 03/04/22 15:30 Baso # (Auto) 0.1 10^3/uL (0.0-0.1) 03/04/22 15:30 Nucleated RBC % (auto) 0 % 03/04/22 15:30 Nucleated RBCs # 0.0 /100WBC 03/04/22 15:30 Sodium 138 mmol/L (136-145) 03/04/22 15:30 Potassium 4.7 mmol/L (3.5-5.1) 03/04/22 15:30 Chloride 103 mmol/L (98-107) 03/04/22 15:30 Carbon Dioxide 23 mmol/L (22-29) 03/04/22 15:30 Anion Gap 16.7 (5-19) 03/04/22 15:30 BUN 13 mg/dL (6-20) 03/04/22 15:30 Creatinine 0.9 mg/dL (0.7-1.2) 03/04/22 15:30 GFR Calculation 91.7 mL/min (90-130) 03/04/22 15:30 Glucose 84 mg/dL (65-115) 03/04/22 15:30 Calculated Osmolality 285 mOsm/kg (285-295) 03/04/22 15:30 Calcium 9.1 mg/dL (8.5-10.5) 03/04/22 15:30 Troponin T Baseline 9 ng/L (0-15) 03/04/22 15:30 Imaging Data Other Imaging: Radiologist's impression: [address] [address] XRay Report Signed Patient: Abdifatah Toscano Unit #: [id number] : 1980 Age/Sex: 42 / M ADM Date: 03/04/22 Loc: ER Room/Bed: Attending Dr: Ordering Provider/Ordering MD: Latrice Chamberlain MD Date of Service: 03/04/22 Procedure(s): XR chest 1V portable [id number] Accession Number(s): [id number] Report Number: [id number] WS: [id number] Portable AP upright chest, 03/04/2022 Clinical Data: chest pain Comparison: Portable chest, 06/16/2021. Findings: No nodules, masses or effusions are seen. The heart is at the upper limits of normal. The pulmonary vascularity is not increased. No pneumonia or pneumothorax is seen. Monitor leads are on the chest wall. There is a small artifact overlying the left lower chest wall. XR/XR chest 1V portable [id number] Impression: Negative chest. ? Dictated By: Maci Cloud MD Signed By: Maci Cloud MD Signed Date/Time: 03/04/22 1527 DD/ 1526 Discharge Plan Discharge Patient Disposition: Admitted As Inpatient Admit Provider: Db Martínez Clinical Impression: Chest pain Condition: Stable Coding Level of Care Code ED Resident Care Manager Rn for Chg Fwd Exam Comprehensive
[2022-03-04] MEDS: morphine 4 mg/mL SDV 1 mL IVP (15:30)
[2022-03-04] MEDS: nitroglycerin 0.4 mg sublingual Tablet SUBLINGUAL ×2 (15:33→15:38)
[2022-03-04 15:49] LABS: Basophils # 0.1 10^3/uL (0.0-0.1); Basophils % 0.7 %; Eosinophils # 0.5 10^3/uL (0.0-0.8); Eosinophils % 4.1 %; Hematocrit 46.4 % (42.0-52.0); Hemoglobin 15.1 g/dL (11.7-16.6); Lymphocytes # 3.3 10^3/uL (0.8-4.8); Lymphocytes % 28.1 %; Mean Corpuscular HGB Conc 32.5 g/dL (30.0-36.0); Mean Corpuscular Hemoglobin 28.3 pg (28.0-34.0); Mean Corpuscular Volume 86.9 fl (80-94); Mean Platelet Volume 9.7 fL (7.4-10.4); Monocytes # 0.7 10^3/uL (0.2-0.9); Monocytes % 6.1 %; Neutrophils # 6.95 10^3/uL (1.8-7.7); Neutrophils % 60.1 %; Nucleated Red Blood Cells % 0 %; Platelet Count 264 10^3/cmm (130-400); Red Blood Count 5.34 10^6/uL (4.1-5.3); Red Cell Distribution Width 13.5 % (12.1-15.1); White Blood Count 11.6 10^3/uL (4.0-10.0)
[2022-03-04] MEDS: HYDROmorphone 1 mg/mL INJ 1 mL 0.5 MG IVP ×2 (16:14→17:43)
[2022-03-04 16:17] LABS: Troponin(5th) Baseline 9 ng/L (0-15)
--- NOTE | 2022-03-04 16:17 | PC.PHAR ---
pt states he takes care of his own medications-pt states he is only using one inhaler albuterol-dulera was last filled 06/22/21 pt states no longer using-pt states he takes his lasix daily rx filled for prn-
--- NOTE | 2022-03-04 17:14 | ECG_ITS ---
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 Measurements Intervals [place] Rate: 72 P: 46 VT: 166 QRS: -8 QRSD: 112 T: 42 QT: 397 QTc: 435 Interpretive Statements SINUS RHYTHM MODERATE INTRAVENTRICULAR CONDUCTION DELAY [110+ ms QRS DURATION] NONSPECIFIC T-WAVE ABNORMALITY Compared to ECG 03/04/2022 15:19:51 Possible ischemia no longer present T-wave abnormality still present Electronically Signed On 03-04-2022 22:57:01 CDT by Maeve Fernandez M.D. [id number]
[2022-03-04 17:39] LABS: Anion Gap 16.7 (5-19); Blood Urea Nitrogen 13 mg/dL (6-20); Calcium 9.1 mg/dL (8.5-10.5); Carbon Dioxide 23 mmol/L (22-29); Chloride 103 mmol/L (98-107); Glomerular Filtration Rate 91.7 mL/min (90-130); Glucose 84 mg/dL (65-115); Osmolality Calculated 285 mOsm/kg (285-295); Potassium 4.7 mmol/L (3.5-5.1); Sodium 138 mmol/L (136-145)
[2022-03-04 18:16] LABS: D Dimer 0.37 ug/mIFEU (0-0.59)
[2022-03-04 18:53] LABS: Troponin 5 2HR 8.25 ng/L (0-15)
--- NOTE | 2022-03-04 19:13 | PC.NURSE ---
Report given to JEAN CLAUDE Hollis
--- NOTE | 2022-03-04 19:35 | PC.NURSE ---
Patient report called to Nina on med surg, patient going to 252.2.
[2022-03-04 19:40] LABS: Troponin 5 2HR Delta -0.75 ABS# (0-10)
--- NOTE | 2022-03-04 21:00 | P.HP_ITS ---
Providers/Chief Complaint Admitting Physician: Db Martínez DO Chief Complaint: chest pain History of Present Illness Abdifatah Toscano is a 42 year old male with history of CAD s/p stent placement a year and a half ago presents with shortness of breath on exertion and chest pain. He states he has been getting more short of breath progressively. He states that he gets belly swelling and will take up to 80 mg of Lasix when that happens. 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 He is changed people and places and is recovering. Review of Systems General: Reports: 10 or more systems reviewed and unremarkable except in HPI and below Medications/Allergies Home Medications Medication Instructions Recorded Confirmed Last Taken Type albuterol sulfate 90 mcg/actuation 2 puff inhalation QID PRN Wheezing 11/24/20 03/04/22 06/16/21 Rx aerosol inhaler 30 days acetaminophen 500 mg tablet 1,000 - 2,000 mg PO Q6H PRN Pain 03/04/22 03/04/22 Unknown History clopidogrel 75 mg tablet 75 mg PO QAM 03/04/22 03/04/22 03/04/22 07:00 History famotidine 40 mg tablet 40 mg PO QAM 03/04/22 03/04/22 03/04/22 07:00 History furosemide 20 mg tablet 20 mg PO DAILY 03/04/22 03/04/22 03/04/22 History guaifenesin 600 mg tablet, 600 mg PO Q12H PRN Constipation 03/04/22 03/04/22 Unknown History extended release 12 hr (Mucinex) ibuprofen 200 mg tablet 800 mg PO Q8H PRN Pain 03/04/22 03/04/22 Unknown History ipratropium 0.5 mg-albuterol 3 mg 3 ml inhalation Q6H PRN Wheezing 03/04/22 03/04/22 Unknown History (2.5 mg base)/3 mL nebulization soln lisinopril 40 mg tablet 40 mg PO QAM 03/04/22 03/04/22 03/04/22 07:00 History lovastatin 20 mg tablet 20 mg PO QAM 03/04/22 03/04/22 03/04/22 History metoprolol succinate 25 mg 25 mg PO QAM 03/04/22 03/04/22 03/04/22 History tablet,extended release 24 hr spironolactone 25 mg tablet 25 mg PO QAM 03/04/22 03/04/22 03/04/22 07:00 H istory Allergies Allergy/AdvReac Type Severity Reaction Status Date / Time aspirin Allergy ALGY-Swell Verified 03/04/22 15:50 Lip/Tongue/Throat codeine Allergy ALGY-Swell Verified 11/24/20 18:10 Lip/Tongue/Throat Iodinated Contrast Media Allergy ALGY-Difficulty Verified 11/24/20 18:10 Breathing Penicillins Allergy ADR-Itching Verified 11/24/20 18:10 red dye Allergy ALGY-Swell Verified 11/24/20 18:10 Lip/Tongue/Throat PFSH Acute PFSH: Medical History (Updated 03/04/22 @ 21:11 by Db Martínez DO) CAD (coronary artery disease) GERD (gastroesophageal reflux disease) Hypertension Surgical History S/P tendon repair Stented coronary artery Social History Smoking and tobacco status: former smoker Quit status (tobacco): has quit using tobacco Second hand smoke exposure: Yes Alcohol intake: former Substance/Drug Use: former Vitals/I&O/Wt Last Vital Signs Temp 97.8 F 03/04/22 15:16 Pulse 63 03/04/22 19:39 Resp 12 03/04/22 19:39 BP 105/72 03/04/22 19:39 Pulse Ox 94 03/04/22 19:39 O2 Del Method 03/04/22 19:49 Weight last 48 hrs Weight 111.584 kg Physical Exam Narrative: Patient is seen lying in bed. He is in no acute distress he is overweight with a BMI of 34. Neurologic: He is alert and oriented to person place time and situation there is no focal deficits cranial nerves are intact. HEENT head is normocephalic and atraumatic pupils are equal and reactive to light and accommodation extraocular muscles are intact TMs are clear membranes are moist and pink in the throat and nasopharynx. Neck is supple no bruits or lymphadenopathy or JVD Chest rises symmetrically with inspiration Heart regular rate and rhythm normal S1-S2 without loud murmur auscultated Lungs diminished breath sounds prolonged expiration with wheezes on expiration and coughing fit. Abdomen round soft nontender nondistended positive bowel sounds no hepatosplenomegaly palpablee Back no obvious scoliosis no pain to palpation of this process no CVA tenderness Extremities no clubbing cyanosis or edema. Skin patient has good color with multiple tattoos on his upper extremities and torso no lesions or rashes noted Data : 03/04/22 15:30 03/04/22 15:30 CXR: My impression: No active disease Radiologist's impression: Negative chest EKG 2: My Interpretation: Sinus rhythm interventricular conduction delay inverted T waves in V4 through V6 Spinning Machine Tender Interpretation: SINUS RHYTHM MODERATE INTRAVENTRICULAR CONDUCTION DELAY [110+ ms QRS DURATION] NONSPECIFIC T-WAVE ABNORMALITY Compared to ECG 03/04/2022 15:19:51 Possible ischemia no longer present T-wave abnormality still present A&P Assessment and plan (1) Chest pain: Will place in observation status he will be on telemetry. First troponin negative await 6-hour troponin. Initial EKG read as abnormal with possible ischemia. Follow-up reading was ischemia no longer present. My personal interpretation is I do not see significant change between either EKG. If troponin remains negative we will do stress test tomorrow. Status: Acute (2) Shortness of breath: Patient has a 60 to 80 pack year smoking history. I suspect patient has some underlying COPD and perhaps this is a COPD exacerbation. Patient also says he was diagnosed with obstructive sleep apnea but due to I needed a different machine? He sometimes sleeps with his mother's oxygen and feels a lot better. Will treat with nebulizers and short course of steroids. Status: Acute (3) Hypertension: Continue home meds will monitor Status: Acute (4) GERD (gastroesophageal reflux disease): Continue home meds will monitor Status: Acute (5) CAD (coronary artery disease): Status post 1 stent a year and a half ago at [facility] Status: Acute Attestations Medical Necessity Statement*: Patient with persistent chest pain and shortness of breath. Close monitoring necessary as patient has history of coronary stenting. Testing to ensue Coding Level of Care Code Acute American Indian Policy Specialist for [facility] Fwd Diagnoses Chest pain R07.9 Shortness of breath R06.02 Hypertension I10 GERD (gastroesophageal reflux disease) K21.9 CAD (coronary artery disease) I25.10
[2022-03-04 21:25] LABS: Troponin 5 6HR 9.65 ng/L (0-15)
[2022-03-04 21:30] LABS: NT Pro B Type Natriuretic Pept 267 pg/mL (0-125)
--- NOTE | 2022-03-04 21:35 | ECG_ITS ---
[facility] Test Date: 2022-03-04 Pat Name: Abdifatah Toscano Department: Room: 252 Gender: Male Tso: : 1980 Requested By: Latrice Chamberlain Order Number: [id number] Reading MD: Meave Fernandez M.D. Measurements Intervals [place] Rate: 60 P: 55 SC: 183 QRS: -17 QRSD: 112 T: 32 QT: 417 QTc: 418 Interpretive Statements SINUS RHYTHM WITH SINUS ARRHYTHMIA MODERATE INTRAVENTRICULAR CONDUCTION DELAY [110+ ms QRS DURATION] NONSPECIFIC T-WAVE ABNORMALITY Compared to ECG 03/04/2022 17:12:19 No significant changes Electronically Signed On 03-04-2022 22:58:12 CDT by Maeve Fernandez M.D. [id number]
[2022-03-04] MEDS: predniSONE 20 mg Tablet 40 MG PO (21:45)
[2022-03-04] MEDS: enoxaparin 40 mg/0.4 mL Syringe SUBCUT (21:46)
[2022-03-05] VITALS (18 sets, daily range): BP systolic 94–152; BP diastolic 49–85; PULSE 44–89; RESP 14–18; TEMP 36.5–36.9; O2SAT 90–98
--- NOTE | 2022-03-05 | ECG_ITS ---
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 Interpretive Statements NAME OF STUDY: LEXISCAN SESTAMIBI STRESS TEST INDICATION: [Angina] Procedure: At the baseline, the blood pressure was 136/81 mmHg with a heart rate of 65 bpm. The electrocardiogram showed normal sinus rhythm, normal axis with normal ST and T's. The Lexiscan was infused over a period of 20 seconds. A total of 0.4 mg of Lexiscan was infused. The stress phase was continued for a total of 5 minutes. Heart rate was at the end of stress phase was 89 bpm and a blood pressure of 152/88 mmHg. The EKG at the peak infusion revealed since normal sinus rhythm with no significant ST-T wave changes. Sestamibi was injected 20 seconds after the Lexiscan infusion. Blood pressure at the end of recovery phase was 138/73 mmHg with a heart rate of 96bpm. Conclusion: 1. Normal EKG response to Lexiscan infusion 2. No Lexiscan induced chest pain or cardiac arrhythmia. 3. Normal blood pressure and heart rate response. 4. Sestamibi/sestamibi perfusion scan pending; see separate report. Electronically Signed On 03-07-2022 23:47:04 CDT by Syed Tran M.D. [id number]
[2022-03-05 00:45] LABS: Troponin 5 6HR Delta 0.65 ng/L (0-12)
[2022-03-05] MEDS: ipratropium-albuterol 3 mL Neb INHALATION ×5 (00:46→20:57)
[2022-03-05 05:46] LABS: Basophils % 0.3 %; Eosinophils % 0.2 %; Hematocrit 45.4 % (42.0-52.0); Hemoglobin 14.7 g/dL (11.7-16.6); Lymphocytes # 1.1 10^3/uL (0.8-4.8); Lymphocytes % 11.5 %; Mean Corpuscular HGB Conc 32.4 g/dL (30.0-36.0); Mean Corpuscular Hemoglobin 28.3 pg (28.0-34.0); Mean Corpuscular Volume 87.3 fl (80-94); Mean Platelet Volume 9.4 fL (7.4-10.4); Monocytes # 0.1 10^3/uL (0.2-0.9); Monocytes % 1.3 %; Neutrophils # 8.43 10^3/uL (1.8-7.7); Neutrophils % 86.2 %; Nucleated Red Blood Cells % 0 %; Platelet Count 239 10^3/cmm (130-400); Red Cell Distribution Width 13.4 % (12.1-15.1); White Blood Count 9.8 10^3/uL (4.0-10.0)
[2022-03-05] MEDS: famotidine 20 mg Tablet 40 MG PO (06:31)
[2022-03-05 06:36] LABS: Anion Gap 12.9 (5-19); Blood Urea Nitrogen 17 mg/dL (6-20); Carbon Dioxide 28 mmol/L (22-29); Chloride 99 mmol/L (98-107); Chol HDL Ratio 4.32 mg/dL (1.0-5.00); Cholesterol 164 mg/dL (0-200); Glucose 145 mg/dL (65-115); HDL Cholesterol 38 mg/dL (60-100); LDL Cholesterol Calculated 103 mg/dL (50-129); LDL HDL Ratio 2.71 RATIO (0.00-3.22); Magnesium 2.3 mg/dL (1.7-2.3); Osmolality Calculated 284 mOsm/kg (285-295); Potassium 4.9 mmol/L (3.5-5.1); Sodium 135 mmol/L (136-145); Thyroid Stimulating Hormone 1.01 uIU/mL (0.27-4.20); Triglycerides 116 mg/dL (0-150)
--- NOTE | 2022-03-05 07:17 | NMCV_ITS ---
NM bart perf SPECT r/s* [id number] Abdifatah Toscano Age: 42 Gender: M : 1980 Exam Date: 03/05/2022 08:20 Ordering Phys: Db Martínez DO Technologist: PAT Garvey Exam Location: [facility] Indications: CHEST PAIN STRESS TEST Please see separate stress test report in [facility] for full findings IMAGE PROTOCOL Rest/Stress 1 Lexiscan Day Radiopharmaceutical Dose (mCi) Administration Site Administered by Rest: Tc-99m 10.9 IV PAT Chin Sestamibi Stress:Tc-99m 32.6 IV PAT Garvey Sestamisp Rest: 05-Mar-2022 60 Discovery 630 Stress: 05-Mar-2022 30 Discovery 630 0.4mg Lexiscan. Images obtained in supine and prone position. SPECT RESULTS Technical Quality: Excellent Raw Data Analysis: Normal Image Corrections: No attenuation or motion correction applied Summed Stress Score: 2 Summed Rest Score: 13 Summed Difference Score: 0 PERFUSION FINDINGS There is perfusion abnormality noted in apical anterior and apical lateral verma start improves on stress images. This is consistent with attenuation artifact. No evidence of ischemia seen. FUNCTIONAL RESULTS (calculated via Gated SPECT) Stress Image LV EF (%): 33 Stress EDV (mL):260 TID: 1 Stress ESV (mL):174 FUNCTIONAL FINDINGS: LV systolic function is moderate to severely reduced with EF of 33%. Moderate to severe global hypokinesis is seen IMPRESSIONS 1. There is a paradoxical perfusion abnormality seen in apical anterior and apical lateral wall. It improves at stress images. This likely represents attenuation artifact. No evidence of ischemia seen. 2. LV systolic function is moderate to severely reduced with EF of 33%. Moderate to severe global hypokinesis is seen. Syed Tran MD (Electronically Signed) Final Date: 05 March 2022 14:00 S
[2022-03-05] MEDS: regadenoson 0.4 Mg/5 ml Syringe IVP (09:05)
[2022-03-05] MEDS: aminophylline 25 mg/mL SDV 10 mL IVP (09:25)
--- NOTE | 2022-03-05 10:47 | PC.CHAP ---
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 [] Patient/Family/Request visit [] Outpatient visit [] Follow-up visit [] Physician referral [] Code/Alert [x] Routine visit [] Staff referral [] Actively dying [] Patient sleeping [] Family support [] [x] Out of room [] Palliative care [] [] Receiving care in room [] Pre-surgical visit [] Trauma [] Long length of stay [] ICU visit [] Other: Relational/Emotional Strength [] Patient feels connected with others/family/visitors/staff [] Distress [] Loneliness/isolation [] Abandonment Spirituality of Patient [] Person of Trish [] Attends Religious of their Trish [] Believes in Prayer [] Reads Bible or Baptist materials [] There are Spiritual issues to be addressed Training Executive Interventions [] Prayer [] Active listening [] Non-anxious presence [] Spiritual/emotional support [] Crisis/trauma care [] Spiritual counseling [] Bereavement support [] Provided bereavement packet [] Provided Bible/devotional materials [] Provided toy/stuffed animal, coloring book to patient or family member [] Provided Communion [] Anointing/Stuart [] Salvation [] Completed spiritual assessment [] Other: Impact on Illness or Injury [] Angry [] Fearful [] Anxious [] Often cries [] Exhaustion [] Unable to work [] Unable to attend yarsanism [] Unable to walk/stand [] Unable to read [] Unable to drive [] Unable to eat/drink [] Unable to sleep [] Unable to be with family [] Patient intubated [] Other: Summary Time spent with patient
[2022-03-05] MEDS: ondansetron 2 mg/ML SDV 2 mL 4 MG IVP (10:57)
[2022-03-05] MEDS: morphine 4 mg/mL SDV 1 mL IVP ×3 (10:57→21:40)
[2022-03-05] MEDS: lisinopril 20 mg Tablet 40 MG PO (10:58)
[2022-03-05] MEDS: spironolactone 25 mg Tablet PO (10:58)
[2022-03-05] MEDS: clopidogrel 75 mg Tablet PO (10:58)
[2022-03-05] MEDS: FUROsemide 40 mg Tablet PO (10:59)
[2022-03-05] MEDS: metoprolol succinate ER (24 HR) 25 mg Tablet PO (10:59)
[2022-03-05] MEDS: predniSONE 20 mg Tablet 40 MG PO (10:59)
--- NOTE | 2022-03-05 19:48 | P.DS_ITS ---
Discharge Providers Date of Admission: 03/04/22 20:48 Date of Discharge: March 05, 2022 Attending Provider at Admission: Db Martínez DO Attending Provider at Discharge: Db Martínez DO Diagnoses at Discharge Discharge Diagnosis (1) Chest pain: Status: Acute (2) Shortness of breath: Status: Acute (3) Hypertension: Status: Acute (4) GERD (gastroesophageal reflux disease): Status: Acute (5) CAD (coronary artery disease): Status: Acute Reason for Visit Reason for Visit: chest pain Brief History: Patient presented to the emergency room for increasing shortness of breath with exertion and chest pain. Chest pain was difficult to relieve and took 3 nitro and morphine. He was admitted for overnight observation to rule out MT. Hospital Course Hospital Course Patient's initial troponins were negative and EKGs per my read. Since patient was on beta-alireza I ordered a pharmacologic stress echo. Results were negative for reversible ischemia. The abnormality was likely attenuation artifact. It did show moderate to severely reduced EF of 33%. With moderate to severe global hypokinesis. I educated the patient on this finding. And explained changes in medications to alleviate symptoms. Physical Exam Narrative: Heart regular rate and rhythm normal S1-S2 without loud murmur auscultated Lungs diminished breath sounds prolonged expiration with wheezes on expiration and coughing fit. Abdomen round soft nontender nondistended positive bowel sounds no hepatosplenomegaly palpablee Extremities no clubbing cyanosis or edema Discharge Data Studies Completed and Pending Completed Studies During Hospitalization Category Date Time Status Cardiac Stress Test Request Routine Exams 03/05/22 06:00 Draft XR chest 1V portable [id number] Stat Exams 03/04/22 15:14 Completed NM bart perf SPECT r/s* [id number] Routine Nuc Med 03/05/22 07:17 Completed Pending at discharge Category Date Time Status Cardiac Stress Test MIBI [Sestamibi Stress Test Request Exams 03/05/22 07:16 Ordered ] Routine Radiology Impressions Chest X-Ray 03/04/22 15:14 Impression: Negative chest. Laboratory Results WBC 9.8 10^3/uL (4.0-10.0) 03/05/22 05:35 RBC 5.20 10^6/uL (4.1-5.3) 03/05/22 05:35 Hgb 14.7 g/dL (11.7-16.6) 03/05/22 05:35 Hct 45.4 % (42.0-52.0) 03/05/22 05:35 MCV 87.3 fl (80-94) 03/05/22 05:35 MCH 28.3 pg (28.0-34.0) 03/05/22 05:35 MCHC 32.4 g/dL (30.0-36.0) 03/05/22 05:35 RDW 13.4 % (12.1-15.1) 03/05/22 05:35 Plt Count 239 10^3/cmm (130-400) 03/05/22 05:35 MPV 9.4 fL (7.4-10.4) 03/05/22 05:35 Neut % (Auto) 86.2 % 03/05/22 05:35 Lymph % (Auto) 11.5 % 03/05/22 05:35 Mcdonough % (Auto) 1.3 % 03/05/22 05:35 Eos % (Auto) 0.2 % 03/05/22 05:35 Baso % (Auto) 0.3 % 03/05/22 05:35 Neut # (Auto) 8.43 10^3/uL (1.8-7.7) H 03/05/22 05:35 Lymph # (Auto) 1.1 10^3/uL (0.8-4.8) 03/05/22 05:35 Mcdonough # (Auto) 0.1 10^3/uL (0.2-0.9) L 03/05/22 05:35 Eos # (Auto) 0.0 10^3/uL (0.0-0.8) 03/05/22 05:35 Baso # (Auto) 0.0 10^3/uL (0.0-0.1) 03/05/22 05:35 Nucleated RBC % (auto) 0 % 03/05/22 05:35 Nucleated RBCs # 0.0 /100WBC 03/05/22 05:35 D-Dimer 0.37 ug/mIFEU (0-0.59) 03/04/22 17:36 Sodium 135 mmol/L (136-145) L 03/05/22 05:35 Potassium 4.9 mmol/L (3.5-5.1) 03/05/22 05:35 Chloride 99 mmol/L (98-107) 03/05/22 05:35 Carbon Dioxide 28 mmol/L (22-29) 03/05/22 05:35 Anion Gap 12.9 (5-19) 03/05/22 05:35 BUN 17 mg/dL (6-20) 03/05/22 05:35 Creatinine 1.3 mg/dL (0.7-1.2) H 03/05/22 05:35 GFR Calculation 60.0 mL/min (90-130) L 03/05/22 05:35 Glucose 145 mg/dL (65-115) H 03/05/22 05:35 Calculated Osmolality 284 mOsm/kg (285-295) L 03/05/22 05:35 Calcium 9.0 mg/dL (8.5-10.5) 03/05/22 05:35 Magnesium 2.3 mg/dL (1.7-2.3) 03/05/22 05:35 Troponin T Baseline 9 ng/L (0-15) 03/04/22 15:30 Troponin T 120 Minute 8.25 ng/L (0-15) 03/04/22 17:36 Delta Troponin T -0.75 ABS# (0-10) L 03/04/22 17:36 Troponin T Hi Sens 6Hr 9.65 ng/L (0-15) 03/04/22 20:50 Troponin T Hi Sens 6Hr Delta 0.65 ng/L (0-12) 03/04/22 20:50 NT-Pro-B Natriuret Pep 267 pg/mL (0-125) H 03/04/22 20:50 Triglycerides 116 mg/dL (0-150) 03/05/22 05:35 Triglycerides Cancelled 03/05/22 05:35 Cholesterol 164 mg/dL (0-200) 03/05/22 05:35 Cholesterol Cancelled 03/05/22 05:35 LDL Cholesterol, Calc 103 mg/dL (50-129) 03/05/22 05:35 LDL Cholesterol, Calc Cancelled 03/05/22 05:35 HDL Cholesterol 38 mg/dL (60-100) L 03/05/22 05:35 HDL Cholesterol Cancelled 03/05/22 05:35 LDL/HDL Ratio 2.71 RATIO (0.00-3.22) 03/05/22 05:35 LDL/HDL Ratio Cancelled 03/05/22 05:35 Cholesterol/HDL Ratio 4.32 mg/dL (1.0-5.00) 03/05/22 05:35 Cholesterol/HDL Ratio Cancelled 03/05/22 05:35 Lipase Cancelled 03/05/22 05:35 TSH 1.01 uIU/mL (0.27-4.20) 03/05/22 05:35 Vitals Last Vital Signs Temp 97.8 F 03/05/22 16:00 Pulse 52 L 03/05/22 16:00 Resp 18 03/05/22 18:23 BP 134/65 03/05/22 16:00 Pulse Ox 95 03/05/22 16:00 O2 Del Method 03/05/22 16:00 Discharge Plan Discharge Patient Disposition: Home Condition: Stable Prescriptions: New atorvastatin [Lipitor] 40 mg tablet 40 mg PO QPM Qty: 30 0RF furosemide [Lasix] 40 mg tablet 40 mg PO QAM Qty: 30 0RF isosorbide mononitrate 10 mg tablet 5 mg PO BID Qty: 60 0RF Rx Instructions: give doses 7 hrs apart Continued albuterol sulfate 90 mcg/actuation HFA aerosol inhaler 2 puff INHALATION QID PRN (Reason: Wheezing) 30 Days 0RF ipratropium-albuterol 0.5 mg-3 mg(2.5 mg base)/3 mL solution for nebulization 3 ml INHALATION Q6H PRN (Reason: Wheezing) famotidine 40 mg tablet 40 mg PO QAM clopidogrel 75 mg tablet 75 mg PO QAM Tylenol Ex Str Rapid Release 500 mg Tablet 1,000 - 2,000 mg PO Q6H PRN (Reason: Pain) spironolactone 25 mg tablet 25 mg PO QAM metoprolol succinate 25 mg tablet extended release 24 hr 25 mg PO QAM lisinopril 40 mg tablet 40 mg PO QAM Mucinex 600 mg Tablet Extended Release 12hr 600 mg PO Q12H PRN (Reason: Constipation) Discontinued ibuprofen 200 mg Tablet 800 mg PO Q8H PRN (Reason: Pain) furosemide 20 mg tablet 20 mg PO DAILY lovastatin 20 mg tablet 20 mg PO QAM Discharge Orders: Discharge Order (Routine); Ordered 03/05/22 Ordered By: Db Martínez Referrals: Ball,Thomas Bryan, DO [Referring] - Discharge Diet: Cardiac Discharge Activity: Increase activity as tolerated Activity Restrictions/Additional Instructions: I added isosorbide to help with your chest pain. Change your cholesterol medicine to what the research studies recommend. And double the dose of your Lasix. Follow-up with PCP in 1 week. Discharge Attestations Time Spent in Discharge Care*: greater than 30 min Quality Metrics Clinical Quality Measures [ No reported AMI, CVA or VTE this stay] Coding Level of Care Code Acute g [facility] note Diagnoses Chest pain R07.9 Shortness of breath R06.02 Hypertension I10 GERD (gastroesophageal reflux disease) K21.9 CAD (coronary artery disease) I25.10
[2022-03-05] MEDS: enoxaparin 40 mg/0.4 mL Syringe SUBCUT (21:36)
[2022-03-06] VITALS: BP 92/49; PULSE 56; PULSE 58; RESP 15; RESP 17; TEMP 36.5; O2SAT 94; O2SAT 96
[2022-03-06] MEDS: ipratropium-albuterol 3 mL Neb INHALATION (00:22)
--- NOTE | 2022-03-06 00:42 | PC.NURSE ---
Patient reported pain to RN at 02/24, requesting morphine inj. BP 94/52. RN explained to patient that BP too low for this medication. Offered Tylenol as alternative for pain. Patient refused, stating, that stuff doesn't work for me . Encouraged patient to drink water to help bring BP up. Patient agreeable with this and requested sandwich as well. Will follow up with BP.
[2022-03-06 01:01] VITALS: BP 94/52
[2022-03-06 04:00] VITALS: BP 112/55; PULSE 67; RESP 14; TEMP 36.4; O2SAT 96
[2022-03-06 06:00] VITALS: PULSE 52
[2022-03-06] MEDS: famotidine 20 mg Tablet 40 MG PO (06:33)
[2022-03-06 08:00] VITALS: BP 125/71; PULSE 74; RESP 17; O2SAT 97
[2022-03-06] MEDS: FUROsemide 40 mg Tablet PO (09:14)
[2022-03-06] MEDS: acetaminophen 325 mg Tablet 650 MG PO (09:14)
[2022-03-06] MEDS: lisinopril 20 mg Tablet 40 MG PO (09:14)
[2022-03-06] MEDS: predniSONE 20 mg Tablet 40 MG PO (09:14)
[2022-03-06] MEDS: metoprolol succinate ER (24 HR) 25 mg Tablet PO (09:15)
[2022-03-06] MEDS: spironolactone 25 mg Tablet PO (09:15)
[2022-03-06] MEDS: clopidogrel 75 mg Tablet PO (09:15)
== END 2022-03-06 10:03 | disposition home or self-care (01) ==
LOC: ER 16:46 → MEDSURG 19:08
PROVIDERS: Admitting Provider Internal Medicine; Emergency Provider Emergency Medicine; Visit Provider Internal Medicine
DX: R07.9 Chest pain, unspecified (principal); R06.02 Shortness of breath; I10 Essential (primary) hypertension; K21.9 Gastro-esophageal reflux disease without esophagitis; I25.10 Atherosclerotic heart disease of native coronary artery without angina pectoris; Z95.5 Presence of coronary angioplasty implant and graft; F15.11 Other stimulant abuse, in remission; Z87.891 Personal history of nicotine dependence
CPT/HCPCS: 36415; 71045; 78452; 80048; 80061; 83735; 83880; 84443; 84484; 85025; 85378; 93005; 93017; 94640; 94664; 96365; 96372; 96375; 96376; 99285; A9500; G0378; J0280; J1170; J1650; J2270; J2405; J2785; J7512

== ENCOUNTER 2022-03-09 11:16 | Emergency (ER) | payer MEDICARE, MEDICAID, SELFPAY ==
--- NOTE | 2022-03-09 11:17 | XRR_ITS ---
PROCEDURE INFORMATION: Exam: XR Chest Exam date and time: 03/09/2022 11:26 AM Age: 42 years old Clinical indication: Pain; Angina pectoris; Additional info: Chest pain TECHNIQUE: Imaging protocol: Radiologic exam of the chest. Views: 1 view. Total images: 458 COMPARISON: CR XR chest 1V portable [id number] 03/04/2022 3:21 PM FINDINGS: Lungs: Unremarkable. No consolidation. Pleural spaces: Unremarkable. No pleural effusion. No pneumothorax. Heart/Mediastinum: Upper normal heart size noted. Bones/joints: Unremarkable. XR/XR chest 1V portable [id number] IMPRESSION: No acute cardiopulmonary process.
--- NOTE | 2022-03-09 11:19 | ED_ITS ---
HPI - Chest Pain General: Chief Complaint: Chest Pain Stated Complaint: chest pain Time Seen by Provider: 03/09/22 11:17 Source: patient Mode of arrival: ambulatory Limitations: no limitations History of Present Illness: 42-year-old male presents emergency room with complaint of chest pain. He was recently hospitalized here overnight with chest pain on the of the he had a Lexiscan sestamibi stress test yesterday. Test did not show evidence of ischemia actually had paradoxical findings was read as attenuation effect. He is reporting chest pain that is continuous he was given nitro and sublingual and topical in route by EMS with no relief of symptoms he states it does get worse with deep inspiration while I am examining him. It is not worse with palpation has not noticed anything else that alleviates or exacerbates it. He did have a pretty significantly reduced ejection fraction at 33%. MD complaint: chest pain Onset (ago): day(s) Timing of current episode: episodic Prior episodes: Yes Onset: during rest Pain location: left chest Pain radiation: none Severity: similar to previous episodes Quality: sharp Relieving factors: nothing Exacerbating factors: inspiration Associated symptoms: Reports diaphoresis and dyspnea; Deny abdominal pain, fever(s), leg edema, nausea, palpitations, sense of impending doom, syncope or vomiting Treatment prior to arrival: none Review of Systems Const: Reports: diaphoresis; Denies: fever(s), chills, fatigue or malaise ENMT: Denies: throat pain, ear or mastoid pain, nasal discharge or nasal congestion Card: Reports: chest pain; Denies: palpitations or syncope Resp: Reports: dyspnea; Denies: productive cough, non-productive cough or wheezing GI: Denies: abdominal pain, nausea or vomiting : Denies: flank pain, difficulty urinating, dysuria, urinary frequency or urinary urgency Musc: Denies: neck pain or back pain Skin/Breast: Denies: rash or pruritus PFSH ED PFSH: Medical History CAD (coronary artery disease) GERD (gastroesophageal reflux disease) Hypertension Surgical History S/P tendon repair Stented coronary artery Social History Smoking and tobacco status: former smoker Quit status (tobacco): has quit using tobacco Second hand smoke exposure: Yes Alcohol intake: former Physical Exam Const: GENERAL APPEARANCE: cooperative and comfortable ORIENTATION/CONSCIOUSNESS: Yes awake, Yes oriented to person, Yes oriented to place and Yes oriented to time HENMT: COMMON NORMALS: normocephalic, atraumatic and hearing grossly normal bilaterally HEAD & SCALP: normocephalic and atraumatic Resp: COMMON NORMALS: normal respiratory effort, No retractions, No use of accessory muscles and clear to auscultation bilaterally AUSCULTATION: clear to auscultation bilaterally Cardio: COMMON NORMALS: regular rate, regular rhythm and No murmurs present (C ardio) RATE: regular rate RHYTHM: regular rhythm GI: COMMON NORMALS: Soft to palpation and No hepatosplenomegaly present AUSCULTATION: Yes normoactive bowel sounds PALPATION: Yes Soft to palpation, No Tenderness to palpation present (GI), No Guarding due to palpation present (GI) and Yes No hepatosplenomegaly present Extremity: COMMON NORMALS: normal to inspection, capillary refill normal, no clubbing, cyanosis or edema, no calf tenderness and no pedal edema Neuro: SENSORIUM/ORIENTATION: Yes oriented to person, Yes oriented to place and Yes oriented to time Skin: COMMON NORMALS: no rashes or lesions noted GENERAL SKIN EXAM: no rashes or lesions noted Course Vital Signs: Vital signs: Vital Signs Pulse Rate 53 L 03/09/22 12:30 Respiratory Rate 12 03/09/22 12:30 Blood Pressure 175/113 03/09/22 14:00 Pulse Oximetry 100 03/09/22 14:00 Oxygen Delivery Me thod 03/09/22 11:36 MDM - Chest Pain Medical Decision Making Patient had negative stress test yesterday troponins are negative EKG does not show anything acute. We will increase isosorbide mononitrate for better blood pressure control. Have him follow-up with cardiology. We will also change him from famotidine to pantoprazole return if he has further problems symptoms are relieved at the time of discharge. Medical Records I reviewed the patient's medical records. Lab Data I reviewed the patient's lab results. : 03/09/22 11:35 03/09/22 11:35 Radiology Impressions Chest X-Ray 03/09/22 11:17 IMPRESSION: No acute cardiopulmonary process. Laboratory Results WBC 13.2 10^3/uL (4.0-10.0) H 03/09/22 11:35 RBC 5.30 10^6/uL (4.1-5.3) 03/09/22 11:35 Hgb 15.0 g/dL (11.7-16.6) 03/09/22 11:35 Hct 45.5 % (42.0-52.0) 03/09/22 11:35 MCV 85.8 fl (80-94) 03/09/22 11:35 MCH 28.3 pg (28.0-34.0) 03/09/22 11:35 MCHC 33.0 g/dL (30.0-36.0) 03/09/22 11:35 RDW 13.2 % (12.1-15.1) 03/09/22 11:35 Plt Count 256 10^3/cmm (130-400) 03/09/22 11:35 MPV 9.6 fL (7.4-10.4) 03/09/22 11:35 Neut % (Auto) 71.3 % 03/09/22 11:35 Lymph % (Auto) 19.0 % 03/09/22 11:35 [place] % (Auto) 6.0 % 03/09/22 11:35 Eos % (Auto) 2.4 % 03/09/22 11:35 Baso % (Auto) 0.5 % 03/09/22 11:35 Neut # (Auto) 9.43 10^3/uL (1.8-7.7) H 03/09/22 11:35 Lymph # (Auto) 2.5 10^3/uL (0.8-4.8) 03/09/22 11:35 [place] # (Auto) 0.8 10^3/uL (0.2-0.9) 03/09/22 11:35 Eos # (Auto) 0.3 10^3/uL (0.0-0.8) 03/09/22 11:35 Baso # (Auto) 0.1 10^3/uL (0.0-0.1) 03/09/22 11:35 Nucleated RBC % (auto) 0 % 03/09/22 11:35 Nucleated RBCs # 0.0 /100WBC 03/09/22 11:35 Sodium 139 mmol/L (136-145) 03/09/22 11:35 Potassium 4.6 mmol/L (3.5-5.1) 03/09/22 11:35 Chloride 101 mmol/L (98-107) 03/09/22 11:35 Carbon Dioxide 28 mmol/L (22-29) 03/09/22 11:35 Anion Gap 14.6 (5-19) 03/09/22 11:35 BUN 14 mg/dL (6-20) 03/09/22 11:35 Creatinine 1.0 mg/dL (0.7-1.2) 03/09/22 11:35 GFR Calculation 81.2 mL/min (90-130) L 03/09/22 11:35 Glucose 95 mg/dL (65-115) 03/09/22 11:35 Calculated Osmolality 288 mOsm/kg (285-295) 03/09/22 11:35 Calcium 9.0 mg/dL (8.5-10.5) 03/09/22 11:35 Troponin T Baseline 7 ng/L (0-15) 03/09/22 11:35 Troponin T 120 Minute 6.97 ng/L (0-15) 03/09/22 13:23 Delta Troponin T -0.03 ABS# (0-10) L 03/09/22 13:23 Discharge Plan Discharge Patient Disposition: Home Clinical Impression: Atypical chest pain, GERD (gastroesophageal reflux disease) Condition: Stable Prescriptions: New pantoprazole 40 mg tablet,delayed release (DR/EC) 40 mg PO BID 14 Days Qty: 28 0RF Changed isosorbide mononitrate 10 mg tablet 10 mg PO BID Qty: 60 0RF Rx Instructions: give doses 7 hrs apart Discontinued famotidine 40 mg tablet 40 mg PO BEDTIME No Action albuterol sulfate 90 mcg/actuation HFA aerosol inhaler 2 puff INHALATION QID PRN (Reason: Wheezing) 30 Days 0RF ipratropium-albuterol 0.5 mg-3 mg(2.5 mg base)/3 mL solution for nebulization 3 ml INHALATION Q6H PRN (Reason: Wheezing) clopidogrel 75 mg tablet 75 mg PO QAM acetaminophen 500 mg Tablet 1,000 - 2,000 mg PO Q6H PRN (Reason: Pain) spironolactone 25 mg tablet 25 mg PO QAM metoprolol succinate 25 mg tablet extended release 24 hr 25 mg PO QAM lisinopril 40 mg tablet 40 mg PO QAM guaifenesin [Mucinex] 600 mg Tablet Extended Release 12hr 600 mg PO Q12H PRN (Reason: Congestion) furosemide [Lasix] 40 mg tablet 40 mg PO QAM Qty: 30 0RF atorvastatin [Lipitor] 40 mg tablet 40 mg PO QPM Qty: 30 0RF Discharge Orders: Discharge ED (Routine); Ordered 03/09/22 Ordered By: Lei Osuna Discharge Diet: Usual diet Discharge Activity: Resume usual activity Patient Instructions: Opioid Safety Activity Restrictions/Additional Instructions: Follow-up with cardiology within the next week. Your stress test yesterday was negative. Your enzymes and EKG today are unremarkable. Would recommend increase isosorbide mononitrate to 10 mg twice daily and switch from famotidine to pantoprazole 40 mg twice daily. Return if you have worsening problems. Coding Level of Care Code ED Clerical Administrative Assistant for Adilson Fwd Exam Detailed
[2022-03-09 11:36] VITALS: BP 144/97; PULSE 69; PULSE 72; RESP 15; RESP 20; O2SAT 94; O2SAT 96; BMI 34.2
[2022-03-09 11:45] LABS: Basophils # 0.1 10^3/uL (0.0-0.1); Basophils % 0.5 %; Eosinophils # 0.3 10^3/uL (0.0-0.8); Eosinophils % 2.4 %; Hematocrit 45.5 % (42.0-52.0); Lymphocytes # 2.5 10^3/uL (0.8-4.8); Mean Corpuscular Hemoglobin 28.3 pg (28.0-34.0); Mean Corpuscular Volume 85.8 fl (80-94); Mean Platelet Volume 9.6 fL (7.4-10.4); Monocytes # 0.8 10^3/uL (0.2-0.9); Neutrophils # 9.43 10^3/uL (1.8-7.7); Neutrophils % 71.3 %; Nucleated Red Blood Cells % 0 %; Platelet Count 256 10^3/cmm (130-400); Red Cell Distribution Width 13.2 % (12.1-15.1); White Blood Count 13.2 10^3/uL (4.0-10.0)
[2022-03-09 12:00] VITALS: BP 144/97; PULSE 74; RESP 15; O2SAT 95
[2022-03-09 12:08] LABS: Troponin(5th) Baseline 7 ng/L (0-15)
[2022-03-09 12:11] LABS: Blood Urea Nitrogen 14 mg/dL (6-20); Carbon Dioxide 28 mmol/L (22-29); Chloride 101 mmol/L (98-107); Glomerular Filtration Rate 81.2 mL/min (90-130); Glucose 95 mg/dL (65-115); Osmolality Calculated 288 mOsm/kg (285-295); Sodium 139 mmol/L (136-145)
[2022-03-09 12:14] LABS: Anion Gap 14.6 (5-19); Potassium 4.6 mmol/L (3.5-5.1)
[2022-03-09 12:30] VITALS: BP 132/90; PULSE 53; RESP 12; O2SAT 96
[2022-03-09 13:00] VITALS: BP 151/89; O2SAT 96
[2022-03-09] MEDS: acetaminophen 325 mg Tablet PO (13:25)
[2022-03-09 13:30] VITALS: BP 164/121; O2SAT 96
[2022-03-09 14:00] VITALS: BP 175/113; O2SAT 100
[2022-03-09 14:07] LABS: Troponin 5 2HR 6.97 ng/L (0-15)
[2022-03-09 14:09] LABS: Troponin 5 2HR Delta -0.03 ABS# (0-10)
[2022-03-09] MEDS: ketorolac 30 mg/mL INJ IM (15:10)
== END 2022-03-09 16:00 | disposition home or self-care (01) ==
PROVIDERS: Emergency Provider Family Medicine
DX: R07.89 Other chest pain (principal); K21.9 Gastro-esophageal reflux disease without esophagitis; Z79.02 Long term (current) use of antithrombotics/antiplatelets; I25.10 Atherosclerotic heart disease of native coronary artery without angina pectoris; I10 Essential (primary) hypertension; Z87.891 Personal history of nicotine dependence
CPT/HCPCS: 71045; 80048; 84484; 85025; 96372; 99285; J1885

== ENCOUNTER 2022-04-06 10:22 | Emergency (ER) | payer MEDICARE, MEDICAID, SELFPAY ==
[2022-04-06] VITALS (16 sets, daily range): BP systolic 97–198; BP diastolic 64–123; PULSE 59–82; RESP 11–25; TEMP 36.8; O2SAT 91–100; BMI 38.0
--- NOTE | 2022-04-06 10:27 | XRR_ITS ---
PROCEDURE INFORMATION: Exam: XR Chest Exam date and time: 04/06/2022 10:41 AM Age: 42 years old Clinical indication: Pain; Angina pectoris; Additional info: Chest pain TECHNIQUE: Imaging protocol: Radiologic exam of the chest. Views: 1 view. COMPARISON: CR XR chest 1V portable [id number] 03/09/2022 11:26 AM FINDINGS: Lungs: There are small lung volumes with mild accentuation of the pulmonary vascularity. There are no confluent interstitial or airspace opacities. Pleural spaces: There are no pleural effusions or pneumothorax. Heart/Mediastinum: The heart size is normal. The mediastinal contour is normal. The trachea is in the midline. Bones/joints: No acute abnormalities. Soft tissues: Multiple external densities are seen overlying the chest, limiting assessment. XR/XR chest 1V portable [id number] IMPRESSION: Small lung volumes with mild accentuation of the pulmonary vascularity. No confluent infiltrates in the lungs.
--- NOTE | 2022-04-06 10:27 | ECG_ITS ---
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 Measurements Intervals [place] Rate: 72 P: 35 CA: 177 QRS: -27 QRSD: 108 T: 43 QT: 401 QTc: 440 Interpretive Statements SINUS RHYTHM BORDERLINE LEFT AXIS DEVIATION [QRS AXIS < -20] NONSPECIFIC T-WAVE ABNORMALITY Compared to ECG 03/04/2022 21:35:19 Sinus arrhythmia no longer present Intraventricular conduction delay no longer present T-wave abnormality still present Electronically Signed On 04-06-2022 20:41:26 CDT by Maeve Fernandez M.D. [id number]
--- NOTE | 2022-04-06 10:27 | W.ED.CHESTPA ---
HPI - Chest Pain General: Chief Complaint: Chest Pain Stated Complaint: Chest pain Time Seen by Provider: 04/06/22 10:26 Source: patient History of Present Illness: 42-year-old male presents emergency room with complaint of chest pain that began last evening around 11 AM. Approximately 23 hours out since chest pain began. Patient had nitroglycerin x3 without relief of chest discomfort. Chest discomfort woke him from sleep it did not radiate into his neck or arm states it feels similar to what he had prior with a previous episode of angina that required a stent. He has been mildly short of breath. Denies any diaphoresis. Initial EKG done in the field did not show any acute ST changes MD complaint: chest pain Pertinent past history: coronary artery disease Onset (ago): hour(s) (11) Timing of current episode: constant Prior episodes: Yes Onset: during rest Pain location: left chest Pain radiation: left arm and left shoulder Severity: mild Quality: tightness and aching Relieving factors: nothing Exacerbating factors: nothing Associated symptoms: Deny abdominal pain, dyspnea, fever(s), nausea or vomiting Review of Systems Const: Denies: fever(s), chills, body aches, change in appetite, fatigue or malaise ENMT: Denies: throat pain, ear or mastoid pain, nasal discharge or nasal congestion Card: Reports: chest pain; Denies: edema, dyspnea on exertion or orthopnea Resp: Denies: dyspnea, productive cough or non-productive cough GI: Denies: abdominal pain, nausea, vomiting, hematemesis, coffee ground emesis, diarrhea, constipation, bloating, hematochezia or melena : Denies: flank pain, dysuria, urinary frequency or urinary urgency Skin/Breast: Denies: rash or pruritus PFSH ED PFSH: Medical History CAD (coronary artery disease) GERD (gastroesophageal reflux disease) Hypertension Surgical History S/P tendon repair Stented coronary artery Social History Smoking and tobacco status: former smoker Quit status (tobacco): has quit using tobacco Second hand smoke exposure: Yes Alcohol intake: former Physical Exam Const: GENERAL APPEARANCE: cooperative and comfortable ORIENTATION/CONSCIOUSNESS: Yes awake, Yes oriented to person, Yes oriented to place and Yes oriented to time HENMT: COMMON NORMALS: normocephalic, atraumatic and hearing grossly normal bilaterally HEAD & SCALP: normocephalic and atraumatic Resp: COMMON NORMALS: normal respiratory effort, No retractions, No use of accessory muscles and clear to auscultation bilaterally AUSCULTATION: clear to auscultation bilaterally Cardio: COMMON NORMALS: regular rate, regular rhythm and No murmurs present (Cardio) RATE: regular rate RHYTHM: regular rhythm GI: COMMON NORMALS: Soft to palpation and No hepatosplenomegaly present AUSCULTATION: Yes normoactive bowel sounds PALPATION: Yes Soft to palpation, No Tenderness to palpation present (GI), No Guarding due to palpation present (GI) and Yes No hepatosplenomegaly present Extremity: COMMON NORMALS: normal to inspection, capillary refill normal, no clubbing, cyanosis or edema, no calf tenderness and no pedal edema Neuro: SENSORIUM/ORIENTATION: Yes oriented to person, Yes oriented to place and Yes oriented to time Skin: COMMON NORMALS: no rashes or lesions noted GENERAL SKIN EXAM: no rashes or lesions noted Course Vital Signs: Vital signs: Vital Signs Temperature 98.3 F 04/06/22 10:25 Pulse Rate 60 04/06/22 13:45 Respiratory Rate 13 04/06/22 13:45 Blood Pressure 129/93 04/06/22 13:45 Pulse Oximetry 95 04/06/22 13:45 Oxygen Delivery Me thod 04/06/22 10:45 Oxygen Flow Rate 3 04/06/22 10:45 MDM - Chest Pain Medical Decision Making Labs imaging and EKG reviewed. Patient told me he had a stent however reviewing his chart he had a stress test that was negative but did not have any stents placed. He is symptom-free at this time labs and imaging do not show any acute acute we will go ahead and discharge patient home follow-up with his primary care return if is further problems. Medical Records I reviewed the patient's medical records. Lab Data I reviewed the patient's lab results. : 04/06/22 09:30 04/06/22 09:30 Radiology Impressions Chest X-Ray 04/06/22 10:27 IMPRESSION: Small lung volumes with mild accentuation of the pulmonary vascularity. No confluent infiltrates in the lungs. Laboratory Results WBC 11.2 10^3/uL (4.0-10.0) H 04/06/22 09:30 RBC 5.57 10^6/uL (4.1-5.3) H 04/06/22 09:30 Hgb 15.6 g/dL (11.7-16.6) 04/06/22 09:30 Hct 46.5 % (42.0-52.0) 04/06/22 09:30 MCV 83.5 fl (80-94) 04/06/22 09:30 MCH 28.0 pg (28.0-34.0) 04/06/22 09:30 MCHC 33.5 g/dL (30.0-36.0) 04/06/22 09:30 RDW 13.1 % (12.1-15.1) 04/06/22 09:30 Plt Count 296 10^3/cmm (130-400) 04/06/22 09:30 MPV 10.0 fL (7.4-10.4) 04/06/22 09:30 Neut % (Auto) 63.2 % 04/06/22 09:30 Lymph % (Auto) 25.8 % 04/06/22 09:30 [place] % (Auto) 6.1 % 04/06/22 09:30 Eos % (Auto) 3.2 % 04/06/22 09:30 Baso % (Auto) 0.6 % 04/06/22 09:30 Neut # (Auto) 7.05 10^3/uL (1.8-7.7) 04/06/22 09:30 Lymph # (Auto) 2.9 10^3/uL (0.8-4.8) 04/06/22 09:30 [place] # (Auto) 0.7 10^3/uL (0.2-0.9) 04/06/22 09:30 Eos # (Auto) 0.4 10^3/uL (0.0-0.8) 04/06/22 09:30 Baso # (Auto) 0.1 10^3/uL (0.0-0.1) 04/06/22 09:30 Nucleated RBC % (auto) 0 % 04/06/22 09:30 Nucleated RBCs # 0.0 /100WBC 04/06/22 09:30 Sodium 139 mmol/L (136-145) 04/06/22 09:30 Potassium 4.7 mmol/L (3.5-5.1) 04/06/22 09:30 Chloride 102 mmol/L (98-107) 04/06/22 09:30 Carbon Dioxide 25 mmol/L (22-29) 04/06/22 09:30 Anion Gap 16.7 (5-19) 04/06/22 09:30 BUN 19 mg/dL (6-20) 04/06/22 09:30 Creatinine 1.0 mg/dL (0.7-1.2) 04/06/22 09:30 GFR Calculation 81.2 mL/min (90-130) L 04/06/22 09:30 Glucose 89 mg/dL (65-115) 04/06/22 09:30 Calculated Osmolality 290 mOsm/kg (285-295) 04/06/22 09:30 Calcium 9.2 mg/dL (8.5-10.5) 04/06/22 09:30 Total Bilirubin 0.5 mg/dL (0.15-1.2) 04/06/22 09:30 AST 17 U/L (0-40) 04/06/22 09:30 ALT 19 U/L (0-41) 04/06/22 09:30 Alkaline Phosphatase 85 U/L (40-130) 04/06/22 09:30 Troponin T Baseline 8 ng/L (0-15) 04/06/22 09:30 Troponin T 120 Minute 7.13 ng/L (0-15) 04/06/22 11:25 Delta Troponin T -0.87 ABS# (0-10) L 04/06/22 11:25 Total Protein 6.9 g/dL (6.6-8.7) 04/06/22 09:30 Albumin 4.3 g/dL (3.5-5.2) 04/06/22 09:30 Globulin 2.6 g/dL (1.3-4.6) 04/06/22 09:30 Discharge Plan Discharge Patient Disposition: Home Clinical Impression: Atypical chest pain Condition: Stable Prescriptions: New Protonix 40 mg tablet,delayed release (DR/EC) 40 mg PO BID 28 Days Qty: 56 0RF No Action albuterol sulfate 90 mcg/actuation HFA aerosol inhaler 2 puff INHALATION QID PRN (Reason: Wheezing) 30 Days 0RF ipratropium-albuterol 0.5 mg-3 mg(2.5 mg base)/3 mL solution for nebulization 3 ml INHALATION Q6H PRN (Reason: Wheezing) clopidogrel 75 mg tablet 75 mg PO QAM acetaminophen 500 mg Tablet 1,000 - 2,000 mg PO Q6H PRN (Reason: Pain) spironolactone 25 mg tablet 25 mg PO QAM metoprolol succinate 25 mg tablet extended release 24 hr 25 mg PO QAM lisinopril 40 mg tablet 40 mg PO QAM guaifenesin [Mucinex] 600 mg Tablet Extended Release 12hr 600 mg PO Q12H PRN (Reason: Congestion) furosemide [Lasix] 40 mg tablet 40 mg PO QAM Qty: 30 0RF atorvastatin [Lipitor] 40 mg tablet 40 mg PO QPM Qty: 30 0RF isosorbide mononitrate 10 mg tablet 10 mg PO BID Qty: 60 0RF Rx Instructions: give doses 7 hrs apart Discharge Orders: Discharge ED (Routine); Ordered 04/06/22 Ordered By: Lei Osuna Discharge Diet: Usual diet Discharge Activity: Limit activity as instructed Patient Instructions: Opioid Safety, Pain Management Activity Restrictions/Additional Instructions: Avoid exertional activity follow-up with cardiology or your primary care doctor within the next week. Coding Level of Care Code ED Director Industrial Nursing for Adilson Fwd Exam Detailed
[2022-04-06] MEDS: morphine 4 mg/mL SDV 1 mL IVP (10:37)
[2022-04-06 10:45] LABS: Basophils # 0.1 10^3/uL (0.0-0.1); Basophils % 0.6 %; Eosinophils # 0.4 10^3/uL (0.0-0.8); Eosinophils % 3.2 %; Hematocrit 46.5 % (42.0-52.0); Hemoglobin 15.6 g/dL (11.7-16.6); Lymphocytes # 2.9 10^3/uL (0.8-4.8); Lymphocytes % 25.8 %; Mean Corpuscular HGB Conc 33.5 g/dL (30.0-36.0); Mean Corpuscular Volume 83.5 fl (80-94); Monocytes # 0.7 10^3/uL (0.2-0.9); Monocytes % 6.1 %; Neutrophils # 7.05 10^3/uL (1.8-7.7); Neutrophils % 63.2 %; Nucleated Red Blood Cells % 0 %; Platelet Count 296 10^3/cmm (130-400); Red Blood Count 5.57 10^6/uL (4.1-5.3); Red Cell Distribution Width 13.1 % (12.1-15.1); White Blood Count 11.2 10^3/uL (4.0-10.0)
[2022-04-06] MEDS: hyDRALAzine 20 mg/mL INJ 1 mL IVP (10:56)
[2022-04-06 11:09] LABS: Alanine Aminotransferase 19 U/L (0-41); Albumin Level 4.3 g/dL (3.5-5.2); Alkaline Phosphatase 85 U/L (40-130); Anion Gap 16.7 (5-19); Aspartate Amino Transferase 17 U/L (0-40); Blood Urea Nitrogen 19 mg/dL (6-20); Calcium 9.2 mg/dL (8.5-10.5); Carbon Dioxide 25 mmol/L (22-29); Chloride 102 mmol/L (98-107); Globulin 2.6 g/dL (1.3-4.6); Glomerular Filtration Rate 81.2 mL/min (90-130); Glucose 89 mg/dL (65-115); Osmolality Calculated 290 mOsm/kg (285-295); Potassium 4.7 mmol/L (3.5-5.1); Sodium 139 mmol/L (136-145); Total Bilirubin 0.5 mg/dL (0.15-1.2); Total Protein 6.9 g/dL (6.6-8.7)
[2022-04-06 11:10] LABS: Troponin(5th) Baseline 8 ng/L (0-15)
[2022-04-06 11:50] LABS: Troponin 5 2HR 7.13 ng/L (0-15)
[2022-04-06 12:08] LABS: Troponin 5 2HR Delta -0.87 ABS# (0-10)
--- NOTE | 2022-04-06 12:27 | ECG_ITS ---
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 Measurements Intervals [place] Rate: 59 P: 45 [place]: 174 QRS: -20 QRSD: 114 T: 15 QT: 424 QTc: 420 Interpretive Statements SINUS BRADYCARDIA MODERATE INTRAVENTRICULAR CONDUCTION DELAY [110+ ms QRS DURATION] MODERATE T-WAVE ABNORMALITY, CONSIDER LATERAL ISCHEMIA [-0.1+ mV T-WAVE IN I/aVL/V5/V6] Compared to ECG 04/06/2022 10:27:23 Intraventricular conduction delay now present Possible ischemia now present Sinus rhythm no longer present T-wave abnormality still present Electronically Signed On 04-06-2022 20:48:44 CDT by Maeve Fernandez M.D. [email or web address]/store/OM/[id number]
== END 2022-04-06 14:06 | disposition home or self-care (01) ==
PROVIDERS: Emergency Provider Family Medicine
DX: R07.89 Other chest pain (principal); I10 Essential (primary) hypertension; I25.10 Atherosclerotic heart disease of native coronary artery without angina pectoris; Z87.891 Personal history of nicotine dependence; Z95.5 Presence of coronary angioplasty implant and graft
CPT/HCPCS: 36415; 71045; 80053; 84484; 85025; 93005; 96374; 96375; 99285; J0360; J2270

== ENCOUNTER 2022-05-05 21:01 | Emergency (ER) | payer MEDICARE, MEDICAID, SELFPAY ==
--- NOTE | 2022-05-05 21:03 | ECG_ITS ---
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 Measurements Intervals [place] Rate: 81 P: 55 [place]: 172 QRS: -29 QRSD: 111 T: 35 QT: 370 QTc: 431 Interpretive Statements SINUS RHYTHM BORDERLINE LEFT AXIS DEVIATION [QRS AXIS < -20] MODERATE INTRAVENTRICULAR CONDUCTION DELAY [110+ ms QRS DURATION] ST DEVIATION AND MODERATE T-WAVE ABNORMALITY, CONSIDER LATERAL ISCHEMIA [-0.1+ mV T-WAVE IN I/aVL/V5/V6] Compared to ECG 04/06/2022 12:49:46 Sinus bradycardia no longer present T-wave abnormality still present Possible ischemia still present Electronically Signed On 05-05-2022 22:46:15 CDT by Maeve Fernandez M.D. [email or web address]/[id number] f
--- NOTE | 2022-05-05 21:03 | XRR_ITS ---
PROCEDURE INFORMATION: Exam: XR Chest Exam date and time: 05/05/2022 9:21 PM Age: 42 years old Clinical indication: Angina pectoris and chest pressure and chest wall pain; Additional info: Cp TECHNIQUE: Imaging protocol: Radiologic exam of the chest. Views: 1 view. COMPARISON: CR XR chest 1V portable [id number] 04/06/2022 10:41 AM FINDINGS: Lungs: Unremarkable. No consolidation. Pleural spaces: Unremarkable. No pleural effusion. No pneumothorax. Heart/Mediastinum: Cardiomegaly. Bones/joints: Unremarkable. XR/XR chest 1V portable [id number] IMPRESSION: Cardiomegaly, negative for infiltrate
[2022-05-05 21:11] VITALS: BP 185/118; PULSE 82; RESP 17; TEMP 36.7; O2SAT 96; BMI 35.4
[2022-05-05 21:18] VITALS: PULSE 82; RESP 20; O2SAT 96
[2022-05-05 21:36] LABS: Basophils # 0.1 10^3/uL (0.0-0.1); Basophils % 0.7 %; Eosinophils # 0.4 10^3/uL (0.0-0.8); Hematocrit 42.2 % (42.0-52.0); Hemoglobin 14.6 g/dL (11.7-16.6); Lymphocytes # 3.4 10^3/uL (0.8-4.8); Lymphocytes % 31.9 %; Mean Corpuscular HGB Conc 34.6 g/dL (30.0-36.0); Mean Corpuscular Hemoglobin 28.8 pg (28.0-34.0); Mean Corpuscular Volume 83.2 fl (80-94); Mean Platelet Volume 9.7 fL (7.4-10.4); Monocytes # 0.6 10^3/uL (0.2-0.9); Monocytes % 5.6 %; Neutrophils # 6.05 10^3/uL (1.8-7.7); Neutrophils % 56.9 %; Nucleated Red Blood Cells % 0 %; Platelet Count 264 10^3/cmm (130-400); Red Blood Count 5.07 10^6/uL (4.1-5.3); Red Cell Distribution Width 13.2 % (12.1-15.1); White Blood Count 10.6 10^3/uL (4.0-10.0)
--- NOTE | 2022-05-05 21:36 | ED_ITS ---
HPI - Chest Pain General: Chief Complaint: Chest Pain Stated Complaint: CP Time Seen by Provider: 05/05/22 21:12 Source: patient and EMS Mode of arrival: EMS Limitations: no limitations History of Present Illness: 42-year-old male who has a history of high blood pressure states that his blood pressure has been running high today's been running over 200 he states he has had some chest pain as pressure type pain going to his left arm he rates his pain currently 2 out of 10 he denies any worsening improving factors he denies any nausea or diaphoresis or shortness of breath. Denies any cough or fever. Denies any vomiting. Associated symptoms: Deny abdominal pain, dyspnea, fever(s), nausea or vomiting Review of Systems Const: Denies: fever(s), chills, body aches or change in appetite Eyes: Denies: blurry vision or eye discomfort ENMT: Denies: throat pain or dental pain Card: Reports: chest pain Resp: Denies: dyspnea GI: Denies: abdominal pain, nausea, vomiting or diarrhea : Denies: dysuria Musc: Denies: neck pain or back pain Skin/Breast: Denies: rash Neuro: Denies: headache(s) Psych: Denies: depression Adam/Lymph: Denies: easy bruising All/Imm: Denies: urticaria PFSH ED PFSH: Medical History CAD (coronary artery disease) GERD (gastroesophageal reflux disease) Hypertension Surgical History S/P tendon repair Stented coronary artery Social History Smoking and tobacco status: former smoker Quit status (tobacco): has quit using tobacco Second hand smoke exposure: Yes Alcohol intake: former Physical Exam Const: COMMON NORMALS: no acute distress, patient oriented x3 and healthy appearing HENMT: COMMON NORMALS: normocephalic and atraumatic HEAD & SCALP: normocephalic and atraumatic Eye: COMMON NORMALS: Equal, round and reactive pupils present and EOMs intact bilaterally PUPIL: Yes Equal, round and reactive pupils present Neck/C-Spine: COMMON NORMALS: full ROM and supple Chest: COMMONS NORMALS: normal inspection of the chest and normal palpation of entire chest wall Resp: COMMON NORMALS: normal respiratory effort, No retractions, No use of accessory muscles and clear to auscultation bilaterally AUSCULTATION: clear to auscultation bilaterally Cardio: COMMON NORMALS: regular rate, regular rhythm and No murmurs present (Cardio) RATE: regular rate RHYTHM: regular rhythm GI: COMMON NORMALS: Normal to inspection, nondistended, normoactive bowel sounds present, Soft to palpation, non-tender and no masses PALPATION: Yes Soft to palpation Extremity: COMMON NORMALS: normal to inspection and full ROM Neuro: COMMON NORMALS: patient oriented x3, moves all extremities and no focal motor deficits Psych: COMMON NORMALS: mental status grossly normal, Normal thought process present and cooperative THOUGHT PROCESS: Normal thought process present Skin: COMMON NORMALS: no rashes or lesions noted and no wounds GENERAL SKIN EXAM: no rashes or lesions noted Course Vital Signs: Vital signs: Vital Signs Temperature 98.1 F 05/05/22 21:11 Pulse Rate 83 05/06/22 00:23 Respiratory Rate 16 05/06/22 00:23 Blood Pressure 125/73 05/06/22 00:23 Pulse Oximetry 96 05/06/22 00:23 Oxygen Delivery Me thod 05/05/22 21:18 MDM - Chest Pain Medical Decision Making Patient presents here with chest pain along with hypertension pain is resolved initial and repeat troponin are normal he is stable for discharge we will increase his metoprolol to 50 he is to follow-up his PCP in 2 to 4 days return if worsening. Lab Data : 05/05/22 21:26 05/05/22 21:26 Radiology Impressions Chest X-Ray 05/05/22 21:03 IMPRESSION: Cardiomegaly, negative for infiltrate Laboratory Results WBC 10.6 10^3/uL (4.0-10.0) H 05/05/22 21: RBC 5.07 10^6/uL (4.1-5.3) 05/05/22 21: Hgb 14.6 g/dL (11.7-16.6) 05/05/22 21: Hct 42.2 % (42.0-52.0) 05/05/22 21: MCV 83.2 fl (80-94) 05/05/22 21: MCH 28.8 pg (28.0-34.0) 05/05/22 21: MCHC 34.6 g/dL (30.0-36.0) 05/05/22 21: RDW 13.2 % (12.1-15.1) 05/05/22 21: Plt Count 264 10^3/cmm (130-400) 05/05/22 21: MPV 9.7 fL (7.4-10.4) 05/05/22 21: Neut % (Auto) 56.9 % 05/05/22 21: Lymph % (Auto) 31.9 % 05/05/22 21: [place] % (Auto) 5.6 % 05/05/22: Eos % (Auto) 4.0 % 05/05/22: Baso % (Auto) 0.7 % 05/05/22: Neut # (Auto) 6.05 10^3/uL (1.8-7.7) 05/05/22 21: Lymph # (Auto) 3.4 10^3/uL (0.8-4.8) 05/05/22 21: [place] # (Auto) 0.6 10^3/uL (0.2-0.9) 05/05/22: Eos # (Auto) 0.4 10^3/uL (0.0-0.8) 05/05/22: Baso # (Auto) 0.1 10^3/uL (0.0-0.1) 05/05/22 21: Nucleated RBC % (auto) 0 % 05/05/22 21: Nucleated RBCs # 0.0 /100WBC 05/05/22 21: Sodium 137 mmol/L (136-145) 05/05/22 21: Potassium 3.9 mmol/L (3.5-5.1) 05/05/22 21: Chloride 100 mmol/L (98-107) 05/05/22 21: Carbon Dioxide 26 mmol/L (22-29) 05/05/22 21: Anion Gap 14.9 (5-19) 05/05/22 21: BUN 10 mg/dL (6-20) 05/05/22 21:26 Creatinine 0.9 mg/dL (0.7-1.2) 05/05/22 21:26 GFR Calculation 91.7 mL/min (90-130) 05/05/22 21:26 Glucose 117 mg/dL (65-115) H 05/05/22 21:26 Calculated Osmolality 284 mOsm/kg (285-295) L 05/05/22 21:26 Calcium 9.4 mg/dL (8.5-10.5) 05/05/22 21:26 Total Bilirubin 0.2 mg/dL (0.15-1.2) 05/05/22 21:26 AST 17 U/L (0-40) 05/05/22 21:26 ALT 18 U/L (0-41) 05/05/22 21:26 Alkaline Phosphatase 73 U/L (40-130) 05/05/22 21:26 Troponin T Baseline 10 ng/L (0-15) 05/05/22 21:26 Troponin T 120 Minute 9.20 ng/L (0-15) 05/05/22 23:48 Delta Troponin T -0.80 ABS# (0-10) L 05/05/22 23:48 NT-Pro-B Natriuret Pep 564 pg/mL (0-125) H 05/05/22 21:26 Total Protein 7.0 g/dL (6.6-8.7) 05/05/22 21:26 Albumin 3.9 g/dL (3.5-5.2) 05/05/22 21:26 Globulin 3.1 g/dL (1.3-4.6) 05/05/22 21:26 EKG Data EKG 1: I personally reviewed and interpreted this EKG as follows: EKG interpretation date: 05/05/22 EKG interpretation time: 21:20 Interpretation: nsr hr [address] or t wave abnormalities qrs 111qtc 408 EKG 2: I personally reviewed and interpreted this EKG as follows: EKG interpretation date: 05/05/22 EKG interpretation time: 22:36 Interpretation: nsr hr [address] or t wave abnormalities qrs 119 qtc 416 Discharge Plan Discharge Patient Disposition: Home Clinical Impression: Chest pain, Hypertension Condition: Stable Prescriptions: New metoprolol succinate 50 mg capsule,sprinkle,ER 24hr 50 mg PO DAILY Qty: 30 0RF Discontinued metoprolol succinate 25 mg tablet extended release 24 hr 25 mg PO QAM No Action albuterol sulfate 90 mcg/actuation HFA aerosol inhaler 2 puff INHALATION QID PRN (Reason: Wheezing) 30 Days 0RF ipratropium-albuterol 0.5 mg-3 mg(2.5 mg base)/3 mL solution for nebulization 3 ml INHALATION Q6H PRN (Reason: Wheezing) clopidogrel 75 mg tablet 75 mg PO QAM acetaminophen 500 mg Tablet 1,000 - 2,000 mg PO Q6H PRN (Reason: Pain) spironolactone 25 mg tablet 25 mg PO QAM lisinopril 40 mg tablet 40 mg PO QAM guaifenesin [Mucinex] 600 mg Tablet Extended Release 12hr 600 mg PO Q12H PRN (Reason: Congestion) furosemide [Lasix] 40 mg tablet 40 mg PO QAM Qty: 30 0RF atorvastatin [Lipitor] 40 mg tablet 40 mg PO QPM Qty: 30 0RF isosorbide mononitrate 10 mg tablet 10 mg PO BID Qty: 60 0RF Rx Instructions: give doses 7 hrs apart Discharge Orders: Discharge ED (Routine); Ordered 05/06/22 Ordered By: Diana Perez Discharge Diet: Advance as tolerated Discharge Activity: Resume usual activity Patient Instructions: Chest Pain (ED), Hypertension (ED) Coding Level of Care Code ED Staff Electronic Warfare Officer for Adilson Fwd Exam Comprehensive
[2022-05-05] MEDS: ondansetron 2 mg/ML SDV 2 mL 4 MG IVP (22:01)
[2022-05-05] MEDS: HYDROmorphone 1 mg/mL INJ 1 mL 0.5 MG IVP (22:01)
[2022-05-05] MEDS: hyDRALAzine 20 mg/mL INJ 1 mL 10 MG IVP (22:01)
[2022-05-05 22:06] LABS: Troponin(5th) Baseline 10 ng/L (0-15)
[2022-05-05 22:13] LABS: Alanine Aminotransferase 18 U/L (0-41); Albumin Level 3.9 g/dL (3.5-5.2); Alkaline Phosphatase 73 U/L (40-130); Aspartate Amino Transferase 17 U/L (0-40); Blood Urea Nitrogen 10 mg/dL (6-20); Calcium 9.4 mg/dL (8.5-10.5); Carbon Dioxide 26 mmol/L (22-29); Chloride 100 mmol/L (98-107); Globulin 3.1 g/dL (1.3-4.6); Glomerular Filtration Rate 91.7 mL/min (90-130); Glucose 117 mg/dL (65-115); NT Pro B Type Natriuretic Pept 564 pg/mL (0-125); Osmolality Calculated 284 mOsm/kg (285-295); Sodium 137 mmol/L (136-145); Total Bilirubin 0.2 mg/dL (0.15-1.2)
[2022-05-05 22:24] LABS: Anion Gap 14.9 (5-19); Potassium 3.9 mmol/L (3.5-5.1)
--- NOTE | 2022-05-05 22:36 | ECG_ITS ---
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 Measurements Intervals [place] Rate: 78 P: 59 [place]: 180 QRS: -12 QRSD: 119 T: 52 QT: 383 QTc: 437 Interpretive Statements SINUS RHYTHM MODERATE INTRAVENTRICULAR CONDUCTION DELAY [110+ ms QRS DURATION] ST DEVIATION AND MODERATE T-WAVE ABNORMALITY, CONSIDER LATERAL ISCHEMIA [-0.1+ mV T-WAVE IN I/aVL/V5/V6] Compared to ECG 05/05/2022 21:20:11 No significant changes Electronically Signed On 05-05-2022 22:55:41 CDT by Maeve Fernandez M.D. [email or web address] [email or web address] hospitalSenscient[facility].[employer]/store/OM/[id number]
[2022-05-06 00:23] VITALS: BP 125/73; PULSE 83; RESP 16; O2SAT 96
== END 2022-05-06 00:25 | disposition home or self-care (01) ==
PROVIDERS: Emergency Provider Emergency Medicine
DX: I10 Essential (primary) hypertension (principal); R07.9 Chest pain, unspecified; Z79.02 Long term (current) use of antithrombotics/antiplatelets; I25.10 Atherosclerotic heart disease of native coronary artery without angina pectoris; Z87.891 Personal history of nicotine dependence
CPT/HCPCS: 71045; 80053; 83880; 84484; 85025; 93005; 99283; J0360; J1170; J2405

== ENCOUNTER 2022-05-20 16:29 | Emergency (ER) | payer MEDICARE, MEDICAID, SELFPAY ==
[2022-05-20 16:40] VITALS: BP 202/118; PULSE 68; RESP 18; TEMP 36.6; O2SAT 96; BMI 35.2
--- NOTE | 2022-05-20 17:30 | ECG_ITS ---
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 Measurements Intervals [place] Rate: 60 P: 66 [place]: 199 QRS: 55 QRSD: 109 T: -55 QT: 412 QTc: 413 Interpretive Statements SINUS RHYTHM INCOMPLETE RIGHT BUNDLE BRANCH BLOCK ST DEVIATION AND MODERATE T-WAVE ABNORMALITY, CONSIDER LATERAL ISCHEMIA ST DEVIATION AND MODERATE T-WAVE ABNORMALITY, CONSIDER INFERIOR ISCHEMIA Compared to ECG 05/05/2022 22:36:34 Incomplete right bundle-branch block now present Intraventricular conduction delay no longer present T-wave abnormality still present Possible ischemia still present Electronically Signed On 05-21-2022 11:50:37 CDT by Fanny Moran M.D. [email or web address].[email or web address]/store/[id number]
--- NOTE | 2022-05-20 17:31 | ED_ITS ---
Documented by User: Lei Osuna DO 06/02/22 16:01 HPI - Headache General: Chief Complaint: Headache Stated Complaint: High BP, headache, on hrt/bp monitor Time Seen by Provider: 05/20/22 17:11 Source: patient Mode of arrival: ambulatory History of Present Illness: 42-year-old male presents emergency room with complaint of headache. Has a history of hypertension his blood pressures been elevated lately and is developed a headache he has no focal neurologic deficits. He is on Lasix 20 daily hydralazine 50 3 times daily lisinopril 40 daily and metoprolol 100 mg the morning and 50 at at bedtime as well as spironolactone 25 twice daily he has been on all his medications he denies missing any medications recently. MD elicited complaint: headache Onset (ago): hour(s) Onset description: gradually Location: frontal Severity: mild Quality & Timing: throbbing Exacerbating factors: none Relieving factors: nothing Associated symptoms: Deny chest pain, confusion, cough, diaphoresis, eye pain, eye redness, fever(s), lightheadedness, loss of vision, malaise, nausea, neck stiffness, numbness, paresthesias, photophobia, pre-syncope, rash, seizures, short of breath, sound sensitivity, syncope, vomiting or weakness Treatments prior to arrival: none Review of Systems Const: Denies: fever(s), chills, fatigue, malaise or diaphoresis ENMT: Denies: throat pain, ear or mastoid pain, nasal discharge or nasal conge stion Card: Denies: chest pain, palpitations, irregular heart rhythm, lightheadedness, syncope or pre-syncope Resp: Denies: dyspnea, productive cough or non-productive cough GI: Denies: abdominal pain, nausea or vomiting : Denies: flank pain, difficulty urinating, dysuria, urinary frequency or urinary urgency Skin/Breast: Denies: rash or pruritus Neuro: Denies: confusion PFSH ED PFSH: Medical History CAD (coronary artery disease) GERD (gastroesophageal reflux disease) Hypertension Surgical History S/P tendon repair Stented coronary artery Social History Smoking and tobacco status: former smoker Quit status (tobacco): has quit using tobacco Second hand smoke exposure: Yes Alcohol intake: former Physical Exam Const: GENERAL APPEARANCE: cooperative and comfortable ORIENTATION/CONSCIOUSNESS: Yes awake, Yes oriented to person, Yes oriented to place and Yes oriented to time HENMT: COMMON NORMALS: normocephalic, atraumatic, hearing grossly normal bilaterally, external ears normal, EAC's normal, TM's normal bilaterally, Normal nasal mucous membranes and turbinates present, moist oral mucous membranes and oropharynx normal HEAD & SCALP: normocephalic and atraumatic NOSE: Normal nasal mucous membranes and turbinates present EXTERNAL EAR: Yes external ears normal EXTERNAL AUDITORY CANAL: EAC's normal TYMPANIC MEMBRANE: TM's normal bilaterally Eye: COMMON NORMALS: Equal, round and reactive pupils present, EOMs intact bilaterally, conjunctivae normal and no scleral icterus CONJUNCTIVA: Yes conjunctivae normal PUPIL: Yes Equal, round and reactive pupils present DIRECT OPHTHALMOSCOPY: No photophobia Neck/C-Spine: COMMON NORMALS: full ROM, no lymphadenopathy, supple and no JVD Resp: COMMON NORMALS: normal respiratory effort, No retractions, No use of accessory muscles and clear to auscultation bilaterally AUSCULTATION: clear to auscultation bilaterally Cardio: COMMON NORMALS: no JVD, regular rate, regular rhythm and No murmurs present (Cardio) RATE: regular rate RHYTHM: regular rhythm GI: COMMON NORMALS: Soft to palpation and No hepatosplenomegaly present AUSCULTATION: Yes normoactive bowel sounds PALPATION: Yes Soft to palpation, No Tenderness to palpation present (GI), No Guarding due to palpation present (GI) and Yes No hepatosplenomegaly present Extremity: COMMON NORMALS: normal to inspection, capillary refill normal, no clubbing, cyanosis or edema, no calf tenderness and no pedal edema Neuro: SENSORIUM/ORIENTATION: Yes oriented to person, Yes oriented to place and Yes oriented to time Skin: COMMON NORMALS: no rashes or lesions noted GENERAL SKIN EXAM: no rashes or lesions noted Course Vital Signs: Vital signs: Vital Signs Temperature 97.9 F 05/20/22 16:40 Pulse Rate 66 05/20/22 19:20 Respiratory Rate 18 05/20/22 19:20 Blood Pressure 167/100 11/03/22 19:20 Pulse Oximetry 96 05/20/22 19:20 Oxygen Delivery Me thod 05/20/22 18:25 MDM - Headache Medical Decision Making Patient's high blood pressure treated labs ordered. Care signed out to Dr. Perez at change of shift. See final notes for diagnosis and disposition. I took patient over from Dr. Silva had presented here with headache along with high blood pressure patient given blood pressure meds he states that his headache is much improved he is well-appearing here he is continue take his meds he is to take a log of his blood pressure over the next week follow-up with his PCP if his headache worsens he is to return. Lab Data : 05/20/22 18:05 05/20/22 18:05 Laboratory Results WBC 12.8 10^3/uL (4.0-10.0) H 05/20/22 18:05 RBC 5.12 10^6/uL (4.1-5.3) 05/20/22 18:05 Hgb 14.5 g/dL (11.7-16.6) 05/20/22 18:05 Hct 43.7 % (42.0-52.0) 05/20/22 18:05 MCV 85.4 fl (80-94) 05/20/22 18:05 MCH 28.3 pg (28.0-34.0) 05/20/22 18:05 MCHC 33.2 g/dL (30.0-36.0) 05/20/22 18:05 RDW 13.4 % (12.1-15.1) 05/20/22 18:05 Plt Count 268 10^3/cmm (130-400) 05/20/22 18:05 MPV 9.5 fL (7.4-10.4) 05/20/22 18:05 Neut % (Auto) 59.4 % 05/20/22 18:05 Lymph % (Auto) 28.1 % 05/20/22 18:05 [place] % (Auto) 6.5 % 05/20/22 18:05 Eos % (Auto) 4.1 % 05/20/22 18:05 Baso % (Auto) 0.6 % 05/20/22 18:05 Neut # (Auto) 7.61 10^3/uL (1.8-7.7) 05/20/22 18:05 Lymph # (Auto) 3.6 10^3/uL (0.8-4.8) 05/20/22 18:05 [place] # (Auto) 0.8 10^3/uL (0.2-0.9) 05/20/22 18:05 Eos # (Auto) 0.5 10^3/uL (0.0-0.8) 05/20/22 18:05 Baso # (Auto) 0.1 10^3/uL (0.0-0.1) 05/20/22 18:05 Nucleated RBC % (auto) 0 % 05/20/22 18:05 Nucleated RBCs # 0.0 /100WBC 05/20/22 18:05 Sodium 135 mmol/L (136-145) L 05/20/22 18:05 Potassium 4.1 mmol/L (3.5-5.1) 05/20/22 18:05 Chloride 102 mmol/L (98-107) 05/20/22 18:05 Carbon Dioxide 24 mmol/L (22-29) 05/20/22 18:05 Anion Gap 13.1 (5-19) 05/20/22 18:05 BUN 14 mg/dL (6-20) 05/20/22 18:05 Creatinine 1.0 mg/dL (0.7-1.2) 05/20/22 18:05 GFR Calculation 81.2 mL/min (90-130) L 05/20/22 18:05 Glucose 89 mg/dL (65-115) 05/20/22 18:05 Calculated Osmolality 280 mOsm/kg (285-295) L 05/20/22 18:05 Calcium 9.1 mg/dL (8.5-10.5) 05/20/22 18:05 Total Bilirubin 0.2 mg/dL (0.15-1.2) 05/20/22 18:05 AST 15 U/L (0-40) 05/20/22 18:05 ALT 19 U/L (0-41) 05/20/22 18:05 Alkaline Phosphatase 70 U/L (40-130) 05/20/22 18:05 NT-Pro-B Natriuret Pep 211 pg/mL (0-125) H 05/20/22 18:05 Total Protein 6.8 g/dL (6.6-8.7) 05/20/22 18:05 Albumin 4.1 g/dL (3.5-5.2) 05/20/22 18:05 Globulin 2.7 g/dL (1.3-4.6) 05/20/22 18:05 Discharge Plan Discharge Patient Disposition: Home Clinical Impression: Headache, Hypertension Condition: Stable Prescriptions: No Action albuterol sulfate 90 mcg/actuation HFA aerosol inhaler 2 puff INHALATION QID PRN (Reason: Wheezing) 30 Days 0RF metoprolol succinate 100 mg tablet extended release 24 hr 100 mg PO QAM furosemide 20 mg tablet 20 mg PO DAILY metoprolol succinate 50 mg capsule,sprinkle,ER 24hr 50 mg PO QPM famotidine 40 mg tablet 40 mg PO BEDTIME hydralazine 50 mg tablet 50 mg PO TID colchicine 0.6 mg tablet 0.6 mg PO BID baclofen 10 mg tablet 10 mg PO Q8H PRN (Reason: muscle spasm) Qty: 10 0RF ipratropium-albuterol 0.5 mg-3 mg(2.5 mg base)/3 mL solution for nebulization 3 ml INHALATION Q6H PRN (Reason: Wheezing) clopidogrel 75 mg tablet 75 mg PO QAM acetaminophen 500 mg Tablet 1,000 - 2,000 mg PO Q6H PRN (Reason: Pain) spironolactone 25 mg tablet 25 mg PO BID lisinopril 40 mg tablet 40 mg PO QAM Discharge Orders: Discharge ED (Routine); Ordered 05/20/22 Ordered By: Diana Perez Discharge Diet: Advance as tolerated Discharge Activity: Resume usual activity Patient Instructions: Hypertension (ED) Coding Level of Care Code ED Bargain Table Clerk for Chg Fwd Exam Comprehensive Documented by User: Diana Perez MD 05/20/22 19:26 HPI - Headache General: Chief Complaint: Headache Stated Complaint: High BP, headache, on hrt/bp monitor Time Seen by Provider: 05/20/22 17:11 [facility] ED PFSH: Medical History CAD (coronary artery disease) GERD (gastroesophageal reflux disease) Hypertension Surgical History S/P tendon repair Stented coronary artery Social History Smoking and tobacco status: former smoker Quit status (tobacco): has quit using tobacco Second hand smoke exposure: Yes Alcohol intake: former Course Vital Signs: Vital signs: Vital Signs Temperature 97.9 F 05/20/22 16:40 Pulse Rate 66 05/20/22 19:20 Respiratory Rate 18 05/20/22 19:20 Blood Pressure 167/100 05/20/22 19:20 Pulse Oximetry 96 05/20/22 19:20 Oxygen Delivery Me thod 05/20/22 18:25 MDM - Headache Medical Decision Making I took patient over from Dr. Silva had presented here with headache along with high blood pressure patient given blood pressure meds he states that his headache is much improved he is well-appearing here he is continue take his meds he is to take a log of his blood pressure over the next week follow-up with his PCP if his headache worsens he is to return. Lab Data : 05/20/22 18:05 05/20/22 18:05 Laboratory Results WBC 12.8 10^3/uL (4.0-10.0) H 05/20/22 18:05 RBC 5.12 10^6/uL (4.1-5.3) 05/20/22 18:05 Hgb 14.5 g/dL (11.7-16.6) 05/20/22 18:05 Hct 43.7 % (42.0-52.0) 05/20/22 18:05 MCV 85.4 fl (80-94) 05/20/22 18:05 MCH 28.3 pg (28.0-34.0) 05/20/22 18:05 MCHC 33.2 g/dL (30.0-36.0) 05/20/22 18:05 RDW 13.4 % (12.1-15.1) 05/20/22 18:05 Plt Count 268 10^3/cmm (130-400) 05/20/22 18:05 MPV 9.5 fL (7.4-10.4) 05/20/22 18:05 Neut % (Auto) 59.4 % 05/20/22 18:05 Lymph % (Auto) 28.1 % 05/20/22 18:05 [place] % (Auto) 6.5 % 05/20/22 18:05 Eos % (Auto) 4.1 % 05/20/22 18:05 Baso % (Auto) 0.6 % 05/20/22 18:05 Neut # (Auto) 7.61 10^3/uL (1.8-7.7) 05/20/22 18:05 Lymph # (Auto) 3.6 10^3/uL (0.8-4.8) 05/20/22 18:05 [place] # (Auto) 0.8 10^3/uL (0.2-0.9) 05/20/22 18:05 Eos # (Auto) 0.5 10^3/uL (0.0-0.8) 05/20/22 18:05 Baso # (Auto) 0.1 10^3/uL (0.0-0.1) 05/20/22 18:05 Nucleated RBC % (auto) 0 % 05/20/22 18:05 Nucleated RBCs # 0.0 /100WBC 05/20/22 18:05 Sodium 135 mmol/L (136-145) L 05/20/22 18:05 Potassium 4.1 mmol/L (3.5-5.1) 05/20/22 18:05 Chloride 102 mmol/L (98-107) 05/20/22 18:05 Carbon Dioxide 24 mmol/L (22-29) 05/20/22 18:05 Anion Gap 13.1 (5-19) 05/20/22 18:05 BUN 14 mg/dL (6-20) 05/20/22 18:05 Creatinine 1.0 mg/dL (0.7-1.2) 05/20/22 18:05 GFR Calculation 81.2 mL/min (90-130) L 05/20/22 18:05 Glucose 89 mg/dL (65-115) 05/20/22 18:05 Calculated Osmolality 280 mOsm/kg (285-295) L 05/20/22 18:05 Calcium 9.1 mg/dL (8.5-10.5) 05/20/22 18:05 Total Bilirubin 0.2 mg/dL (0.15-1.2) 05/20/22 18:05 AST 15 U/L (0-40) 05/20/22 18:05 ALT 19 U/L (0-41) 05/20/22 18:05 Alkaline Phosphatase 70 U/L (40-130) 05/20/22 18:05 NT-Pro-B Natriuret Pep 211 pg/mL (0-125) H 05/20/22 18:05 Total Protein 6.8 g/dL (6.6-8.7) 05/20/22 18:05 Albumin 4.1 g/dL (3.5-5.2) 05/20/22 18:05 Globulin 2.7 g/dL (1.3-4.6) 05/20/22 18:05 Discharge Plan Discharge Patient Disposition: Home Clinical Impression: Headache, Hypertension Condition: Stable Prescriptions: No Action albuterol sulfate 90 mcg/actuation HFA aerosol inhaler 2 puff INHALATION QID PRN (Reason: Wheezing) 30 Days 0RF metoprolol succinate 100 mg tablet extended release 24 hr 100 mg PO QAM furosemide 20 mg tablet 20 mg PO DAILY metoprolol succinate 50 mg capsule,sprinkle,ER 24hr 50 mg PO QPM famotidine 40 mg tablet 40 mg PO BEDTIME hydralazine 50 mg tablet 50 mg PO TID colchicine 0.6 mg tablet 0.6 mg PO BID baclofen 10 mg tablet 10 mg PO Q8H PRN (Reason: muscle spasm) Qty: 10 0RF ipratropium-albuterol 0.5 mg-3 mg(2.5 mg base)/3 mL solution for nebulization 3 ml INHALATION Q6H PRN (Reason: Wheezing) clopidogrel 75 mg tablet 75 mg PO QAM acetaminophen 500 mg Tablet 1,000 - 2,000 mg PO Q6H PRN (Reason: Pain) spironolactone 25 mg tablet 25 mg PO BID lisinopril 40 mg tablet 40 mg PO QAM Discharge Orders: Discharge ED (Routine); Ordered 05/20/22 Ordered By: Diana Perez Discharge Diet: Advance as tolerated Discharge Activity: Resume usual activity Patient Instructions: Hypertension (ED) Coding Level of Care Code ED Bargain Table Clerk for Chg Fwd Exam Comprehensive
[2022-05-20 18:12] LABS: Basophils # 0.1 10^3/uL (0.0-0.1); Basophils % 0.6 %; Eosinophils # 0.5 10^3/uL (0.0-0.8); Eosinophils % 4.1 %; Hematocrit 43.7 % (42.0-52.0); Hemoglobin 14.5 g/dL (11.7-16.6); Lymphocytes # 3.6 10^3/uL (0.8-4.8); Lymphocytes % 28.1 %; Mean Corpuscular HGB Conc 33.2 g/dL (30.0-36.0); Mean Corpuscular Hemoglobin 28.3 pg (28.0-34.0); Mean Corpuscular Volume 85.4 fl (80-94); Mean Platelet Volume 9.5 fL (7.4-10.4); Monocytes # 0.8 10^3/uL (0.2-0.9); Monocytes % 6.5 %; Neutrophils # 7.61 10^3/uL (1.8-7.7); Neutrophils % 59.4 %; Nucleated Red Blood Cells % 0 %; Platelet Count 268 10^3/cmm (130-400); Red Blood Count 5.12 10^6/uL (4.1-5.3); Red Cell Distribution Width 13.4 % (12.1-15.1); White Blood Count 12.8 10^3/uL (4.0-10.0)
[2022-05-20] MEDS: promethazine 25 mg/mL SDV 1 mL IM (18:19)
[2022-05-20] MEDS: hyDRALAzine 20 mg/mL INJ 1 mL 10 MG IVP (18:19)
[2022-05-20 18:25] VITALS: BP 170/98; PULSE 73; RESP 21; O2SAT 98
[2022-05-20] MEDS: amlodipine 10 mg Tablet PO (18:28)
[2022-05-20] MEDS: acetaminophen 325 mg Tablet 650 MG PO (18:28)
[2022-05-20 18:31] VITALS: BP 165/97; PULSE 71; RESP 13
[2022-05-20 18:50] LABS: Alanine Aminotransferase 19 U/L (0-41); Albumin Level 4.1 g/dL (3.5-5.2); Alkaline Phosphatase 70 U/L (40-130); Anion Gap 13.1 (5-19); Aspartate Amino Transferase 15 U/L (0-40); Blood Urea Nitrogen 14 mg/dL (6-20); Calcium 9.1 mg/dL (8.5-10.5); Carbon Dioxide 24 mmol/L (22-29); Chloride 102 mmol/L (98-107); Globulin 2.7 g/dL (1.3-4.6); Glomerular Filtration Rate 81.2 mL/min (90-130); Glucose 89 mg/dL (65-115); NT Pro B Type Natriuretic Pept 211 pg/mL (0-125); Osmolality Calculated 280 mOsm/kg (285-295); Potassium 4.1 mmol/L (3.5-5.1); Sodium 135 mmol/L (136-145); Total Bilirubin 0.2 mg/dL (0.15-1.2); Total Protein 6.8 g/dL (6.6-8.7)
[2022-05-20 19:20] VITALS: BP 167/100; PULSE 66; RESP 18; O2SAT 96
== END 2022-05-20 19:20 | disposition home or self-care (01) ==
PROVIDERS: Emergency Medicine; Emergency Provider Emergency Medicine
DX: R51.9 Headache, unspecified (principal); I10 Essential (primary) hypertension; Z79.02 Long term (current) use of antithrombotics/antiplatelets; I25.10 Atherosclerotic heart disease of native coronary artery without angina pectoris; Z87.891 Personal history of nicotine dependence
CPT/HCPCS: 80053; 83880; 85025; 93005; 96372; 96374; 99284; J0360; J2550

== ENCOUNTER 2022-05-27 20:05 | Emergency (ER) | payer MEDICARE, MEDICAID, SELFPAY ==
--- NOTE | 2022-05-27 20:11 | XRR_ITS ---
PROCEDURE INFORMATION: Exam: XR Chest Exam date and time: 05/27/2022 8:43 PM Age: 42 years old Clinical indication: Shortness of breath; Chest pressure and chest wall pain and other: Lt side chest pain; Patient HX: Lt nipple ring; Additional info: SOB TECHNIQUE: Imaging protocol: Radiologic exam of the chest. Views: 1 view. COMPARISON: CR (CHEST, ) 05/05/2022 9:21 PM FINDINGS: Lungs: Unremarkable. No consolidation. Pleural spaces: Unremarkable. No pleural effusion. No pneumothorax. Heart/Mediastinum: Unremarkable. No cardiomegaly. Bones/joints: Unremarkable. XR/XR chest 1V portable [id number] IMPRESSION: No acute findings.
--- NOTE | 2022-05-27 20:12 | ECG_ITS ---
[facility] Test Date: 2022-05-27 Pat Name: Abdifatah Toscano Department: Room: Gender: Male Records Manager: : 1980 Requested By: Diana Perez Order Number: [id number] Igor MD: Maeve Fernandez M.D. Measurements Intervals [place] Rate: 85 P: 56 NM: 172 QRS: -4 QRSD: 112 T: 107 QT: 364 QTc: 435 Interpretive Statements SINUS RHYTHM MODERATE INTRAVENTRICULAR CONDUCTION DELAY [110+ ms QRS DURATION] MODERATE T-WAVE ABNORMALITY, CONSIDER LATERAL ISCHEMIA [-0.1+ mV T-WAVE IN I/aVL/V5/V6] Compared to ECG 05/20/2022 17:30:21 Intraventricular conduction delay now present Incomplete right bundle-branch block no longer present T-wave abnormality still present Possible ischemia still present Electronically Signed On 05-29-2022 14:05:37 SURGICAL SCRUB TECHNOLOGIST by Maeve Fernandez M.D. [id number]
[2022-05-27 20:14] VITALS: BP 161/100; PULSE 92; RESP 18; TEMP 36.8; O2SAT 98; BMI 35.2
[2022-05-27 21:15] LABS: Basophils # 0.1 10^3/uL (0.0-0.1); Basophils % 0.4 %; Eosinophils # 0.4 10^3/uL (0.0-0.8); Eosinophils % 2.8 %; Hematocrit 45.5 % (42.0-52.0); Hemoglobin 15.2 g/dL (11.7-16.6); Lymphocytes # 3.7 10^3/uL (0.8-4.8); Lymphocytes % 26.8 %; Mean Corpuscular HGB Conc 33.4 g/dL (30.0-36.0); Mean Corpuscular Hemoglobin 28.1 pg (28.0-34.0); Mean Corpuscular Volume 84.3 fl (80-94); Mean Platelet Volume 9.6 fL (7.4-10.4); Monocytes % 6.9 %; Neutrophils # 8.55 10^3/uL (1.8-7.7); Neutrophils % 62.4 %; Nucleated Red Blood Cells % 0 %; Platelet Count 327 10^3/cmm (130-400); Red Cell Distribution Width 13.4 % (12.1-15.1); White Blood Count 13.7 10^3/uL (4.0-10.0)
[2022-05-27 21:43] LABS: Alanine Aminotransferase 18 U/L (0-41); Albumin Level 4.4 g/dL (3.5-5.2); Alkaline Phosphatase 82 U/L (40-130); Aspartate Amino Transferase 15 U/L (0-40); Blood Urea Nitrogen 10 mg/dL (6-20); Calcium 9.6 mg/dL (8.5-10.5); Carbon Dioxide 24 mmol/L (22-29); Chloride 101 mmol/L (98-107); Globulin 3.3 g/dL (1.3-4.6); Glomerular Filtration Rate 81.2 mL/min (90-130); Glucose 110 mg/dL (65-115); Lipase 43 U/L (13-60); Osmolality Calculated 284 mOsm/kg (285-295); Sodium 137 mmol/L (136-145); Total Bilirubin 0.3 mg/dL (0.15-1.2); Total Protein 7.7 g/dL (6.6-8.7)
--- NOTE | 2022-05-27 22:13 | W.ED.GENADLT ---
HPI - General Adult General: Chief complaint: General Medical Stated complaint: Left side abd pain, Hurts to breath Time Seen by Provider: 05/27/22 21:31 History of Present Illness: Patient is in today for left-sided chest wall pain. He reports that 3 to 4 days ago he woke up with chest wall pain on his left side. He reports that it seems to be progressively worsening. He did go to [facility] 3 days ago and stated that they did an x-ray and then they told him they could not find anything wrong. He reports that they sent him home with hydrocodone however he cannot take this because he participates in a drug court program. He reports that he is almost not unable to sleep with the pain so severe. He states that moving, deep inspiration, palpation all makes the pain worse. Nothing seems to improve it. Denies any injury to the area. He denies fever or chills. He denies radiation of pain. He denies shortness of breath although deep inspiration is painful. Associated symptoms: Reports chest pain (Chest wall pain left side); Deny dyspnea or palpitations Review of Systems Const: Denies: fever(s) or chills Card: Reports: chest pain (Chest wall pain left side); Denies: palpitations Resp: Reports: pain on inspiration; Denies: dyspnea, productive cough or non-productive cough PFSH ED PFSH: Medical History CAD (coronary artery disease) GERD (gastroesophageal reflux disease) Hypertension Surgical History S/P tendon repair Stented coronary artery Social History Smoking and tobacco status: former smoker Quit status (tobacco): has quit using tobacco Second hand smoke exposure: Yes Alcohol intake: former Physical Exam Const: COMMON NORMALS: patient oriented x3 and alert OTHER: Patient is in obvious pain. Sudden movements cause him tremendous pain. Neck/C-Spine: COMMON NORMALS: no JVD Chest: OTHER: Patient has tenderness to palpation along the left lateral chest wall below the breast. Palpation is extremely tender and a intercostal space from axilla all the way around near the sternum. No obvious soft tissue or bony deformity appreciated. No obvious step-offs appreciated. Palpation intercostally does reproduce pain complaint. As does deep inspiration or twisting body side to side. Resp: COMMON NORMALS: normal respiratory effort, No use of accessory muscles and clear to auscultation bilaterally AUSCULTATION: clear to auscultation bilaterally Cardio: COMMON NORMALS: no JVD, regular rate, regular rhythm, S1 normal heart sound present, S2 normal heart sound present and No murmurs present (Cardio) RATE: regular rate RHYTHM: regular rhythm HEART SOUNDS: S1 normal heart sound present and S2 normal heart sound present Neuro: COMMON NORMALS: patient oriented x3 SENSORIUM/ORIENTATION: Yes alert Course Vital Signs: Vital signs: Vital Signs Temperature 98.2 F 05/27/22 20:14 Pulse Rate 92 05/27/22 20:14 Respiratory Rate 18 05/27/22 20:14 Blood Pressure 161/100 05/27/22 20:14 Pulse Oximetry 98 05/27/22 20:14 Oxygen Delivery Me thod 05/27/22 20:14 MDM - General Adult Medical Decision Making Patient is in today for left lateral chest wall pain. He denies injury. He reports it has been persisting since 3 to 4 days with no break in pain. He reports it seems to be getting worse. He reports it is worse with certain movements and deep inspiration. Chest x-ray wet read 2 view no acute cardiopulmonary changes appreciated. Radiologist review chest ray no acute findings. Labs patient does have a slightly elevated white blood cell count. Tenderness to palpation intercostal rib space left lateral chest wall extending all the way towards the sternum. No obvious bony or soft tissue deformity appreciated. Palpation of this area does reproduce pain complaint. Treat patient for costochondritis. Patient is on Plavix so we will forego NSAID at this point. Decadron IM 1 dose given send patient home with a 3-day burst of prednisone starting tomorrow. Order baclofen medication to help with muscle spasming. Patient can start the baclofen tomorrow as he states that he cannot take it tonight because he does take his Risperdal at night. Vies him not to take medication with anything that makes him sleepy or with alcohol. Advised him to not drive after taking baclofen medication. Follow-up with primary care provider next week. Return to the ER as needed for new or worsening symptoms. Lab Data : 05/27/22 21:10 05/27/22 21:10 Radiology Impressions Chest X-Ray 05/27/22 20:11 IMPRESSION: No acute findings. Laboratory Results WBC 13.7 10^3/uL (4.0-10.0) H 05/27/22 21:10 RBC 5.40 10^6/uL (4.1-5.3) H 05/27/22 21:10 Hgb 15.2 g/dL (11.7-16.6) 05/27/22 21:10 Hct 45.5 % (42.0-52.0) 05/27/22 21:10 MCV 84.3 fl (80-94) 05/27/22 21:10 MCH 28.1 pg (28.0-34.0) 05/27/22 21:10 MCHC 33.4 g/dL (30.0-36.0) 05/27/22 21:10 RDW 13.4 % (12.1-15.1) 05/27/22 21:10 Plt Count 327 10^3/cmm (130-400) 05/27/22 21:10 MPV 9.6 fL (7.4-10.4) 05/27/22 21:10 Neut % (Auto) 62.4 % 05/27/22 21:10 Lymph % (Auto) 26.8 % 05/27/22 21:10 [place] % (Auto) 6.9 % 05/27/22 21:10 Eos % (Auto) 2.8 % 05/27/22 21:10 Baso % (Auto) 0.4 % 05/27/22 21:10 Neut # (Auto) 8.55 10^3/uL (1.8-7.7) H 05/27/22 21:10 Lymph # (Auto) 3.7 10^3/uL (0.8-4.8) 05/27/22 21:10 [place] # (Auto) 1.0 10^3/uL (0.2-0.9) H 05/27/22 21:10 Eos # (Auto) 0.4 10^3/uL (0.0-0.8) 05/27/22 21:10 Baso # (Auto) 0.1 10^3/uL (0.0-0.1) 05/27/22 21:10 Nucleated RBC % (auto) 0 % 05/27/22 21:10 Nucleated RBCs # 0.0 /100WBC 05/27/22 21:10 Sodium 137 mmol/L (136-145) 05/27/22 21:10 Potassium 4.0 mmol/L (3.5-5.1) 05/27/22 21:10 Chloride 101 mmol/L (98-107) 05/27/22 21:10 Carbon Dioxide 24 mmol/L (22-29) 05/27/22 21:10 Anion Gap 16.0 (5-19) 05/27/22 21:10 BUN 10 mg/dL (6-20) 05/27/22 21:10 Creatinine 1.0 mg/dL (0.7-1.2) 05/27/22 21:10 GFR Calculation 81.2 mL/min (90-130) L 05/27/22 21:10 Glucose 110 mg/dL (65-115) 05/27/22 21:10 Calculated Osmolality 284 mOsm/kg (285-295) L 05/27/22 21:10 Calcium 9.6 mg/dL (8.5-10.5) 05/27/22 21:10 Total Bilirubin 0.3 mg/dL (0.15-1.2) 05/27/22 21:10 AST 15 U/L (0-40) 05/27/22 21:10 ALT 18 U/L (0-41) 05/27/22 21:10 Alkaline Phosphatase 82 U/L (40-130) 05/27/22 21:10 Total Protein 7.7 g/dL (6.6-8.7) 05/27/22 21:10 Albumin 4.4 g/dL (3.5-5.2) 05/27/22 21:10 Globulin 3.3 g/dL (1.3-4.6) 05/27/22 21:10 Lipase 43 U/L (13-60) 05/27/22 21:10 Discharge Plan Discharge Patient Disposition: Home Clinical Impression: Acute costochondritis Prescriptions: New prednisone 20 mg tablet 40 mg PO BID 3 Days Qty: 12 0RF baclofen 10 mg tablet 10 mg PO Q8H PRN (Reason: muscle spasm) Qty: 10 0RF No Action albuterol sulfate 90 mcg/actuation HFA aerosol inhaler 2 puff INHALATION QID PRN (Reason: Wheezing) 30 Days 0RF metoprolol succinate 100 mg tablet extended release 24 hr 100 mg PO QAM furosemide 20 mg tablet 20 mg PO DAILY metoprolol succinate 50 mg capsule,sprinkle,ER 24hr 50 mg PO QPM famotidine 40 mg tablet 40 mg PO BEDTIME hydralazine 50 mg tablet 50 mg PO TID colchicine 0.6 mg tablet 0.6 mg PO BID ipratropium-albuterol 0.5 mg-3 mg(2.5 mg base)/3 mL solution for nebulization 3 ml INHALATION Q6H PRN (Reason: Wheezing) clopidogrel 75 mg tablet 75 mg PO QAM acetaminophen 500 mg Tablet 1,000 - 2,000 mg PO Q6H PRN (Reason: Pain) spironolactone 25 mg tablet 25 mg PO BID lisinopril 40 mg tablet 40 mg PO QAM Discharge Orders: Discharge ED (Routine); Ordered 05/27/22 Ordered By: Iwona Pina Discharge Diet: Usual diet Discharge Activity: Increase activity as tolerated Patient Instructions: Costochondritis - Adult Activity Restrictions/Additional Instructions: Start prednisone tomorrow. You may take Tylenol to help. Utilize warm moist compresses alternating with ice to help with pain and swelling. Gentle stretches. Follow-up with primary care provider next week. Return to ER for any new or worsening symptoms. Coding Level of Care Code ED Sock Lining Examiner for Adilson Fwd Exam Expanded Problem Focused
[2022-05-27] MEDS: dexamethasone 10 mg/mL INJ IM (22:27)
== END 2022-05-27 22:34 | disposition home or self-care (01) ==
PROVIDERS: Emergency Medicine; Emergency Provider Nurse Practitioner Family
DX: M94.0 Chondrocostal junction syndrome [Tietze] (principal); Z79.02 Long term (current) use of antithrombotics/antiplatelets; I25.10 Atherosclerotic heart disease of native coronary artery without angina pectoris; I10 Essential (primary) hypertension; Z87.891 Personal history of nicotine dependence
CPT/HCPCS: 71045; 80053; 83690; 85025; 93005; 96372; 99285; J1100

== ENCOUNTER 2022-06-12 15:59 | Emergency (ER) | payer MEDICARE, MEDICAID, SELFPAY ==
[2022-06-12 16:12] VITALS: BP 140/78; PULSE 86; RESP 16; TEMP 37.2; O2SAT 96
[2022-06-12 18:54] LABS: Basophils # 0.1 10^3/uL (0.0-0.1); Basophils % 0.4 %; Eosinophils # 0.2 10^3/uL (0.0-0.8); Eosinophils % 0.8 %; Hematocrit 47.4 % (42.0-52.0); Hemoglobin 15.5 g/dL (11.7-16.6); Lymphocytes # 3.2 10^3/uL (0.8-4.8); Mean Corpuscular HGB Conc 32.7 g/dL (30.0-36.0); Mean Corpuscular Volume 85.7 fl (80-94); Mean Platelet Volume 10.5 fL (7.4-10.4); Monocytes % 5.1 %; Neutrophils # 15.26 10^3/uL (1.8-7.7); Neutrophils % 76.8 %; Nucleated Red Blood Cells % 0 %; Platelet Count 207 10^3/cmm (130-400); Red Blood Count 5.53 10^6/uL (4.1-5.3); Red Cell Distribution Width 13.2 % (12.1-15.1); White Blood Count 19.9 10^3/uL (4.0-10.0)
[2022-06-12 19:00] VITALS: PULSE 83; RESP 16; O2SAT 98
--- NOTE | 2022-06-12 19:31 | CTR_ITS ---
PROCEDURE INFORMATION: Exam: CT Abdomen And Pelvis With Contrast Exam date and time: 06/12/2022 8:06 PM Age: 42 years old Clinical indication: Abdominal pain; Additional info: Abd pain TECHNIQUE: Imaging protocol: Computed tomography of the abdomen and pelvis with contrast. Sagittal and coronal reformatted images were created and reviewed. Radiation optimization: All CT scans at this facility use at least one of these dose optimization techniques: automated exposure control; mA and/or kV adjustment per patient size (includes targeted exams where dose is matched to clinical indication); or iterative reconstruction. Contrast material: OMNIPAQUE 350; Contrast volume: 100 ml; Contrast route: INTRAVENOUS (IV); COMPARISON: CR (CHEST, ) 05/27/2022 8:43 PM RADIATION DOSE METRICS: Total DLP (mGy-cm): 1267.79 FINDINGS: Lungs: Visualized lungs are clear. Pleural spaces: No pleural effusion. Heart: Stable mild enlargement of the heart. Liver: The liver is unremarkable. Gallbladder and bile ducts: Patient has had a previous cholecystectomy. No biliary ductal dilatation. Pancreas: The pancreas is unremarkable. No pancreatic ductal dilatation. Spleen: The spleen is unremarkable. Adrenal glands: The right and left adrenal glands are unremarkable. Kidneys and ureters: The right and left kidneys are unremarkable. The right and left ureters are unremarkable. Stomach and bowel: No obstruction. No mucosal thickening. Appendix: The appendix is visualized and is unremarkable. No findings to suggest acute appendicitis. Intraperitoneal space: No free intraperitoneal air. No ascites. No loculated fluid collections to suggest an abscess. Vasculature: No evidence for aortic aneurysm or aortic dissection. Hepatic veins, portal veins, splenic vein, and SMV are patent. Lymph nodes: No lymphadenopathy. Urinary bladder: Unremarkable as visualized. Reproductive: Unremarkable as visualized. Bones/joints: Multilevel degenerative changes of varying severity in the visualized spine. Mild degenerative changes of the right sacroiliac joint. There is partial fusion of the left sacroiliac joint, consistent with a remote episode of seronegative sacroiliitis versus sequela of degenerative change. Soft tissues: No acute abnormality in the extra-abdominal soft tissues. CT/CT abdomen pelvis w con* [id number] IMPRESSION: 1. No acute abnormality in the abdomen or pelvis. 2. Incidental/nonacute findings are listed in the report.
[2022-06-12 19:57] VITALS: RESP 18
[2022-06-12] MEDS: morphine 4 mg/mL SDV 1 mL IVP (19:57)
[2022-06-12] MEDS: ondansetron 2 mg/ML SDV 2 mL 4 MG IVP (19:59)
[2022-06-12] MEDS: sodium chloride 0.9% 1,000 ML 999 ML IV (19:59)
[2022-06-12] MEDS: diphenhydrAMINE 50 mg/mL SDV 1mL IVP ×2 (20:00→21:50)
--- NOTE | 2022-06-12 20:02 | W.ED.ABDPA2 ---
HPI - Abdominal Pain General: Chief Complaint: Abdominal Pain Stated Complaint: pain in the lower left abd Time Seen by Provider: 06/12/22 17:55 Source: patient Mode of arrival: ambulatory Limitations: no limitations History of Present Illness: 42-year-old male states he has been having abdominal pain over the last 2 days he states he was diagnosed diverticulitis 2 weeks ago was finished antibiotics he states he is having worsening pain states pain is left lower quadrant denies any radiation has had no vomiting or diarrhea he rates his pain a 9 out of 10 currently. Associated Symptoms: Denies chills, dysuria and fever(s) Review of Systems Const: Denies: fever(s), chills, body aches or change in appetite Eyes: Denies: blurry vision or eye discomfort ENMT: Denies: throat pain or dental pain Card: Denies: chest pain Resp: Denies: dyspnea GI: Reports: abdominal pain : Denies: dysuria Musc: Denies: neck pain or back pain Skin/Breast: Denies: rash Neuro: Denies: headache(s) Psych: Denies: depression Adam/Lymph: Denies: easy bruising All/Imm: Denies: urticaria PFSH ED PFSH: Medical History CAD (coronary artery disease) GERD (gastroesophageal reflux disease) Hypertension Surgical History S/P tendon repair Stented coronary artery Social History Smoking and tobacco status: former smoker Quit status (tobacco): has quit using tobacco Second hand smoke exposure: Yes Alcohol intake: former Physical Exam Const: COMMON NORMALS: no acute distress, patient oriented x3 and healthy appearing HENMT: COMMON NORMALS: normocephalic and atraumatic HEAD & SCALP: normocephalic and atraumatic Eye: COMMON NORMALS: Equal, round and reactive pupils present and EOMs intact bilaterally PUPIL: Yes Equal, round and reactive pupils present Neck/C-Spine: COMMON NORMALS: full ROM and supple Chest: COMMONS NORMALS: normal inspection of the chest and normal palpation of entire chest wall Resp: COMMON NORMALS: normal respiratory effort, No retractions, No use of accessory muscles and clear to auscultation bilaterally AUSCULTATION: clear to auscultation bilaterally Cardio: COMMON NORMALS: regular rate, regular rhythm and No murmurs present (Cardio) RATE: regular rate RHYTHM: regular rhythm GI: COMMON NORMALS: Normal to inspection, nondistended, normoactive bowel sounds present, Soft to palpation and no masses PALPATION: Yes Soft to palpation and Yes Tenderness to palpation present (GI) Details: LLQ Extremity: COMMON NORMALS: normal to inspection and full ROM Neuro: COMMON NORMALS: patient oriented x3, moves all extremities and no focal motor deficits Psych: COMMON NORMALS: mental status grossly normal, Normal thought process present and cooperative THOUGHT PROCESS: Normal thought process present Skin: COMMON NORMALS: no rashes or lesions noted and no wounds GENERAL SKIN EXAM: no rashes or lesions noted Course Vital Signs: Vital signs: Vital Signs Temperature 98.9 F 06/12/22 16:12 Pulse Rate 86 06/12/22 16:12 Respiratory Rate 18 06/12/22 19:57 Blood Pressure 140/78 06/12/22 16:12 Pulse Oximetry 96 06/12/22 16:12 Oxygen Delivery Me thod 06/12/22 16:12 MDM - Abdominal Pain Medical Decision Making Patient presents with abdominal pain is also had a cough is likely viral syndrome CT and x-ray are normal he is stable for discharge he is to follow-up with PCP and return if worsening he understands agrees to plan. Lab Data 06/12/22 18:28 06/12/22 19:40 Labs/Radiology: Radiology Impressions Abdomen/Pelvis CT 06/12/22 19:31 IMPRESSION: 1. No acute abnormality in the abdomen or pelvis. 2. Incidental/nonacute findings are listed in the report. Chest X-Ray 06/12/22 20:47 IMPRESSION: 1. No acute cardiopulmonary process. 2. Incidental/nonacute findings are listed in the report. Laboratory Results WBC 19.9 10^3/uL (4.0-10.0) H 06/12/22 18:28 RBC 5.53 10^6/uL (4.1-5.3) H 06/12/22 18:28 Hgb 15.5 g/dL (11.7-16.6) 06/12/22 18:28 Hct 47.4 % (42.0-52.0) 06/12/22 18: MCV 85.7 fl (80-94) 06/12/22 18: MCH 28.0 pg (28.0-34.0) 06/12/22 18: MCHC 32.7 g/dL (30.0-36.0) 06/12/22 18: RDW 13.2 % (12.1-15.1) 06/12/22 18: Plt Count 207 10^3/cmm (130-400) 06/12/22 18: MPV 10.5 fL (7.4-10.4) H 06/12/22 18: Neut % (Auto) 76.8 % 06/12/22 18: Lymph % (Auto) 16.0 % 06/12/22 18: [place] % (Auto) 5.1 % 06/12/22 18: Eos % (Auto) 0.8 % 06/12/22 18: Baso % (Auto) 0.4 % 06/12/22 18: Neut # (Auto) 15.26 10^3/uL (1.8-7.7) H 06/12/22 18: Lymph # (Auto) 3.2 10^3/uL (0.8-4.8) 06/12/22 18: [place] # (Auto) 1.0 10^3/uL (0.2-0.9) H 06/12/22 18: Eos # (Auto) 0.2 10^3/uL (0.0-0.8) 06/12/22 18: Baso # (Auto) 0.1 10^3/uL (0.0-0.1) 06/12/22 18: Nucleated RBC % (auto) 0 % 06/12/22 18: Nucleated RBCs # 0.0 /100WBC 06/12/22 18: Sodium 128 mmol/L (136-145) L 06/12/22 19:40 Potassium 4.3 mmol/L (3.5-5.1) 06/12/22 19:40 Chloride 91 mmol/L (98-107) L 06/12/22 19:40 Carbon Dioxide 27 mmol/L (22-29) 06/12/22 19:40 Anion Gap 14.3 (5-19) 06/12/22 19:40 BUN 10 mg/dL (6-20) 06/12/22 19:40 Creatinine 1.1 mg/dL (0.7-1.2) 06/12/22 19:40 GFR Calculation 72.7 mL/min (90-130) L 06/12/22 19:40 Glucose 96 mg/dL (65-115) 06/12/22 19:40 Calculated Osmolality 265 mOsm/kg (285-295) L 06/12/22 19:40 Lactate 1.5 mmol/L (0.5-2.2) 06/12/22 20:00 Calcium 9.1 mg/dL (8.5-10.5) 06/12/22 19:40 Total Bilirubin 0.4 mg/dL (0.15-1.2) 06/12/22 19:40 AST 16 U/L (0-40) 06/12/22 19:40 ALT 19 U/L (0-41) 06/12/22 19:40 Alkaline Phosphatase 86 U/L (40-130) 06/12/22 19:40 Total Protein 7.9 g/dL (6.6-8.7) 06/12/22 19:40 Albumin 4.3 g/dL (3.5-5.2) 06/12/22 19:40 Globulin 3.6 g/dL (1.3-4.6) 06/12/22 19:40 Lipase 72 U/L (13-60) H 06/12/22 19:40 Urine Color Yellow (Yellow) 06/12/22 21:20 Urine Appearance Clear (CLEAR) 06/12/22 21:20 Urine pH 5 (5-7) 06/12/22 21:20 Ur Specific [place] 1.005 (1.005-1.030) 06/12/22 21:20 Urine Protein Neg (Negative) 06/12/22 21:20 Urine Glucose (UA) Norm (Normal) 06/12/22 21:20 Urine Ketones Negative (Negative) 06/12/22 21:20 Urine Blood Neg (Negative) 06/12/22 21:20 Urine Nitrate Negative (Negative) 06/12/22 21:20 Urine Bilirubin Neg (Negative) 06/12/22 21:20 Urine Urobilinogen Neg mg/dL (Negative) 06/12/22 21:20 Ur Leukocyte Esterase Trace (Negative) H 06/12/22 21:20 Urine RBC 0-4 /hpf (0-2) H 06/12/22 21:20 Urine WBC 0-4 /hpf (0-5) H 06/12/22 21:20 Ur Squamous Epith Cells 0-4 /hpf (0-5) H 06/12/22 21:20 Amorphous Sediment Not Reportable 06/12/22 21:20 Urine Bacteria None /hpf (NONE) 06/12/22 21:20 Discharge Plan Discharge Patient Disposition: Home Clinical Impression: Abdominal pain Condition: Stable Prescriptions: New hydrocodone-acetaminophen 5-325 mg tablet 1 tab PO Q6H PRN (Reason: pain) Qty: 14 0RF ondansetron 4 mg tablet,disintegrating 4 mg PO Q6H PRN (Reason: nausea and vomiting) Qty: 14 0RF No Action albuterol sulfate 90 mcg/actuation HFA aerosol inhaler 2 puff INHALATION QID PRN (Reason: Wheezing) 30 Days 0RF metoprolol succinate 100 mg tablet extended release 24 hr 100 mg PO QAM furosemide 20 mg tablet 20 mg PO DAILY metoprolol succinate 50 mg capsule,sprinkle,ER 24hr 50 mg PO QPM famotidine 40 mg tablet 40 mg PO BEDTIME hydralazine 50 mg tablet 50 mg PO TID colchicine 0.6 mg tablet 0.6 mg PO BID baclofen 10 mg tablet 10 mg PO Q8H PRN (Reason: muscle spasm) Qty: 10 0RF ipratropium-albuterol 0.5 mg-3 mg(2.5 mg base)/3 mL solution for nebulization 3 ml INHALATION Q6H PRN (Reason: Wheezing) clopidogrel 75 mg tablet 75 mg PO QAM acetaminophen 500 mg Tablet 1,000 - 2,000 mg PO Q6H PRN (Reason: Pain) spironolactone 25 mg tablet 25 mg PO BID lisinopril 40 mg tablet 40 mg PO QAM Discharge Orders: Discharge ED (Routine); Ordered 06/12/22 Ordered By: Diana Perez Referrals: Junie Cain NP [Primary Care Provider] - 1-3 days Discharge Diet: Advance as tolerated Discharge Activity: Resume usual activity Patient Instructions: Abdominal Pain (ED) Coding Level of Care Code ED Grinding Wheel Operator for Chg Fwd Exam Comprehensive
[2022-06-12 20:06] LABS: Alanine Aminotransferase 19 U/L (0-41); Albumin Level 4.3 g/dL (3.5-5.2); Alkaline Phosphatase 86 U/L (40-130); Anion Gap 14.3 (5-19); Aspartate Amino Transferase 16 U/L (0-40); Blood Urea Nitrogen 10 mg/dL (6-20); Calcium 9.1 mg/dL (8.5-10.5); Carbon Dioxide 27 mmol/L (22-29); Chloride 91 mmol/L (98-107); Globulin 3.6 g/dL (1.3-4.6); Glomerular Filtration Rate 72.7 mL/min (90-130); Glucose 96 mg/dL (65-115); Lipase 72 U/L (13-60); Osmolality Calculated 265 mOsm/kg (285-295); Potassium 4.3 mmol/L (3.5-5.1); Sodium 128 mmol/L (136-145); Total Bilirubin 0.4 mg/dL (0.15-1.2); Total Protein 7.9 g/dL (6.6-8.7)
[2022-06-12] MEDS: iohexol 350 mg/mL 500 mL Btl (per mL) IV (20:10)
[2022-06-12 20:31] LABS: Lactate (Lactic Acid level) 1.5 mmol/L (0.5-2.2)
--- NOTE | 2022-06-12 20:47 | XRR_ITS ---
PROCEDURE INFORMATION: Exam: XR Chest Exam date and time: 06/12/2022 9:54 PM Age: 42 years old Clinical indication: Fever TECHNIQUE: Imaging protocol: Radiologic exam of the chest. Views: 1 view. COMPARISON: CR (CHEST, ) 05/27/2022 8:43 PM FINDINGS: Lungs: Lungs are clear bilaterally. Pleural spaces: No pleural effusion. No pneumothorax. Heart/Mediastinum: Stable mild enlargement of the cardiac silhouette. Mediastinal contours are unremarkable. Bones/joints: Unremarkable for age. XR/XR chest 1V portable [id number] IMPRESSION: 1. No acute cardiopulmonary process. 2. Incidental/nonacute findings are listed in the report.
[2022-06-12 21:42] LABS: Add Urine Microscopic? YES; Bilirubin Urine Neg (Negative); Blood Urine Neg (Negative); Glucose Urine UA Norm (Normal); Ketones Urine Negative (Negative); Leukocyte Esterase Urine Trace (Negative); Nitrate Urine Negative (Negative); Protein Urine Neg (Negative); Specific Gravity, Urine 1.005 (1.005-1.030); Urine Appearance Clear (CLEAR); Urine Color Yellow (Yellow); Urobilinogen Urine Neg (Negative); pH Urine 5 (5-7)
[2022-06-12 21:43] LABS: Add Urine Culture? No; RBC Urine 0-4 /hpf (0-2); Squamous Epithelial Cell Urine 0-4 /hpf (0-5); WBC Urine 0-4 /hpf (0-5)
[2022-06-12] MEDS: metoclopramide 5 mg/mL SDV 2 mL 10 MG IVP (21:50)
[2022-06-12 22:44] VITALS: BP 141/70; PULSE 81; RESP 16; O2SAT 99
[2022-06-12] MEDS: HYDROcodone-acetaminophen 5-325 mg Tablet 1 TAB PO (22:52)
== END 2022-06-12 22:55 | disposition home or self-care (01) ==
PROVIDERS: Nurse Practitioner; Emergency Provider Emergency Medicine; PCP Nurse Practitioner Family
DX: R10.32 Left lower quadrant pain (principal); I25.10 Atherosclerotic heart disease of native coronary artery without angina pectoris; I10 Essential (primary) hypertension; K21.9 Gastro-esophageal reflux disease without esophagitis
CPT/HCPCS: 36415; 71045; 74177; 80053; 81001; 83605; 83690; 85025; 96361; 96374; 96375; 96376; 99285; J1200; J2270; J2405; J2765; J2920; J7030; Q9967

== ENCOUNTER 2022-06-14 06:59 | Inpatient (IN) | payer MEDICARE, MEDICAID, SELFPAY ==
[2022-06-14] VITALS (7 sets, daily range): BP systolic 123–153; BP diastolic 78–92; PULSE 10–100; RESP 14–20; TEMP 36.2–36.8; O2SAT 93–96; BMI 35.1
--- NOTE | 2022-06-14 07:08 | XR_ITS ---
WS: [id number] XR KUB portable [id number] REASON FOR EXAM: abd pain FINDINGS: No free air or retroperitoneal air. Nonspecific distention of the right and transverse colon. Moderate amount of fecal material in the ri ght colon. No distended small bowel. No mass identified. No urinary tract calculi identified. XR/XR KUB portable [id number] IMPRESSION: No acute abnormality identified.
--- NOTE | 2022-06-14 07:12 | ECG_ITS ---
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 Measurements Intervals [place] Rate: 91 P: 48 SC: 172 QRS: 11 QRSD: 117 T: 83 QT: 332 QTc: 410 Interpretive Statements SINUS RHYTHM MODERATE INTRAVENTRICULAR CONDUCTION DELAY [110+ ms QRS DURATION] MODERATE T-WAVE ABNORMALITY, CONSIDER LATERAL ISCHEMIA [-0.1+ mV T-WAVE IN I/aVL/V5/V6] Compared to ECG 05/27/2022 21:22:23 No significant changes Electronically Signed On 06-14-2022 14:50:59 CUSTOMER SUPPLY COORDINATOR by Maeve Fernandez M.D. [email or web address]
--- NOTE | 2022-06-14 07:12 | XR_ITS ---
WS: [id number] XR chest 1V portable [id number] REASON FOR EXAM: dyspnea/cough FINDINGS: Compared to the previous examination of 06/12/2022, irregular linear opacities are seen in both lower lungs, predominating on the right. These abnormalities have the appearance of atelectasis. No defini te pneumonitis. The chest is otherwise unchanged compared to previous study. XR/XR chest 1V portable [id number] IMPRESSION: Interval development of complete lower lung opacities as above.
[2022-06-14 08:25] LABS: Basophils % 0.2 %; Hematocrit 46.1 % (42.0-52.0); Lymphocytes # 1.9 10^3/uL (0.8-4.8); Lymphocytes % 7.2 %; Mean Corpuscular HGB Conc 32.5 g/dL (30.0-36.0); Mean Corpuscular Hemoglobin 28.1 pg (28.0-34.0); Mean Corpuscular Volume 86.3 fl (80-94); Mean Platelet Volume 9.4 fL (7.4-10.4); Monocytes # 1.8 10^3/uL (0.2-0.9); Monocytes % 6.8 %; Neutrophils # 22.23 10^3/uL (1.8-7.7); Nucleated Red Blood Cells % 0 %; Platelet Count 287 10^3/cmm (130-400); Red Blood Count 5.34 10^6/uL (4.1-5.3); Red Cell Distribution Width 13.5 % (12.1-15.1); White Blood Count 26.1 10^3/uL (4.0-10.0)
[2022-06-14 08:46] LABS: Lactic Sepsis W/Reflex 1.1 mmol/L (0.5-2.2)
[2022-06-14 08:47] LABS: Alanine Aminotransferase 18 U/L (0-41); Albumin Level 3.7 g/dL (3.5-5.2); Alkaline Phosphatase 77 U/L (40-130); Aspartate Amino Transferase 12 U/L (0-40); Blood Urea Nitrogen 14 mg/dL (6-20); Calcium 9.1 mg/dL (8.5-10.5); Carbon Dioxide 25 mmol/L (22-29); Chloride 95 mmol/L (98-107); Globulin 3.6 g/dL (1.3-4.6); Glomerular Filtration Rate 72.7 mL/min (90-130); Glucose 153 mg/dL (65-115); Lipase 51 U/L (13-60); Osmolality Calculated 276 mOsm/kg (285-295); Sodium 131 mmol/L (136-145); Total Protein 7.3 g/dL (6.6-8.7)
--- NOTE | 2022-06-14 08:58 | CT_ITS ---
WS: [id number] CT ABDOMEN PELVIS TECHNIQUE: Noncontrast CT of the abdomen and pelvis with coronal and sagittal reformatted images. CLINICAL INFORMATION: Abdominal pain COMPARISON: 2021 DLP: 1253.[address] scans at [facility] use at least one of these dose optimization techniques: automated e xposure control; mA and/or kV adjustment per patient size (includes targeted exams where dose is matc hed to clinical indication); or iterative reconstruction. FINDINGS:Inflammatory stranding and edema with fluid involving the LEFT lateral abdominal wall muscul ature. This involves the external and internal oblique muscles and transverse abdominis just extendin g to the undersurface of the rectus abdominis. Small amount of fluid centered at the 9th rib laterall y at the costochondral junction. Recommend correlation for trauma. Additional considerations include infection/developing osteomyelitis versus inflammatory costochondritis. No drainable abscess or fluid collection at this time. Noncontrast liver is normal. Cholecystectomy clips. Normal noncontrast spleen. Small esophageal hiata l hernia. Tiny LEFT pleural effusion. Bibasilar atelectasis. Adrenal glands are normal. Noncontrast p ancreas is normal. No hydronephrosis in either kidney. No obstructing renal or ureteral calculi. Norm al sigmoid colon. No evidence of bowel obstruction. Normal appendix in the RIGHT lower quadrant. No f ree fluid in the abdomen or pelvis. Normal caliber abdominal aorta. Fat-containing umbilical hernia. Bilateral fat-containing inguinal hernias. CT/CT abdomen pelvis con [id number] IMPRESSION: 1. Inflammatory stranding and edema with fluid involving the LEFT lateral abdo sakshi wall musculature. This involves the external and internal oblique muscles and transverse abdominis just extending to the undersurface of the rectus barrientos th. 2. Small amount of fluid centered at the 9th rib laterally at the costochondra l junction. Recommend correlation for trauma versus infection/osteomyelitis meme jer inflammatory costochondritis 3. No drainable abscess or fluid collection at this time. 4. No intra-abdominal abnormalities. 5. Tiny LEFT pleural effusion with bibasilar atelectasis. 6. Prior cholecystectomy. Notified Lei Osuna DO at 06/14/2022 9:55 AM.
--- NOTE | 2022-06-14 11:44 | W.ED.ABDPA2 ---
HPI - Abdominal Pain General: Chief Complaint: Abdominal Pain Stated Complaint: chest pain Time Seen by Provider: 06/14/22 07:14 Source: patient Mode of arrival: ambulatory History of Present Illness: 42-year-old male presents emergency room with complaint of left lower rib and left-sided abdominal pain. She been to the ER several times the last few days with similar complaint. States worsening takes a deep breath or when he coughs or sneezes. He denies any dysuria urgency or frequency hematochezia melena hematemesis coffee-ground emesis no fevers. Patient admits to a prior history of IV drug use for this is been years since he has used nothing recently. MD elicited complaint: abdominal pain and flank pain Pertinent past history: constipation Onset (ago): day(s) Pain Consistency: constant Location: L flank Severity: severe Quality: sharp Exacerbating factors: movement and other (Palpation left side abdominal wall) Relieving factors: nothing Associated Symptoms: Reports bloating, change in bowel habits and constipation; Denies anorexia, belching, change in stool character, chills, coffee ground emesis, GI cramping, diarrhea, dyspepsia, dysuria, excessive flatus, fever(s), heartburn, hematochezia, hematuria, hematemesis, fecal incontinence, loose stools, melena, nausea, poor appetite, syncope and vomiting Review of Systems Const: Denies: fever(s), chills, fatigue or malaise ENMT: Denies: throat pain, ear or mastoid pain, nasal discharge or nasal congestion Card: Denies: chest pain, palpitations, irregular heart rhythm or syncope Resp: Denies: dyspnea, productive cough or non-productive cough GI: Reports: abdominal pain, constipation, bloating and change in bowel habits; Denies: nausea, vomiting, hematemesis, coffee ground emesis, heartburn, diarrhea, GI cramping, belching, excessive flatus, fecal incontinence, change in stool character, hematochezia or melena : Reports: flank pain; Denies: difficulty urinating, dysuria, urinary frequency, urinary urgency or hematuria Musc: Denies: neck pain or back pain Skin/Breast: Denies: rash or pruritus PFS ED PFSH: Medical History CAD (coronary artery disease) GERD (gastroesophageal reflux disease) Hypertension Surgical History S/P tendon repair Stented coronary artery Social History Smoking and tobacco status: former smoker Quit status (tobacco): has quit using tobacco Second hand smoke exposure: Yes Alcohol intake: former Physical Exam Const: COMMON NORMALS: no acute distress GENERAL APPEARANCE: cooperative and comfortable ORIENTATION/CONSCIOUSNESS: Yes awake, Yes oriented to person, Yes oriented to place and Yes oriented to time HENMT: COMMON NORMALS: normocephalic, atraumatic and hearing grossly normal bilaterally HEAD & SCALP: normocephalic and atraumatic Resp: COMMON NORMALS: normal respiratory effort, No retractions, No use of accessory muscles and clear to auscultation bilaterally AUSCULTATION: clear to auscultation bilaterally Cardio: COMMON NORMALS: regular rate, regular rhythm and No murmurs present (Cardio) RATE: regular rate RHYTHM: regular rhythm GI: OTHER: Left-sided abdominal wall pain left lower rib pain no fluctuant areas no redness no erythema and no skin breakdown ulceration or inflammation noted on the left side of the abdomen or lower ribs : COMMON NORMALS: Yes no CVA tenderness BLADDER/KIDNEY EXAM: Yes no CVA tenderness Back/Pelvis: COMMON NORMALS: no CVA tenderness Extremity: COMMON NORMALS: normal to inspection, capillary refill normal, no clubbing, cyanosis or edema, no calf tenderness and no pedal edema Neuro: SENSORIUM/ORIENTATION: Yes oriented to person, Yes oriented to place and Yes oriented to time Skin: COMMON NORMALS: no rashes or lesions noted GENERAL SKIN EXAM: no rashes or lesions noted Course Vital Signs: Vital signs: Vital Signs Temperature 97.2 F L 06/14/22 07:00 Pulse Rate 10 L 06/14/22 07:00 Respiratory Rate 16 06/14/22 07:00 Blood Pressure 129/88 06/14/22 07:00 Pulse Oximetry 93 06/14/22 07:00 Oxygen Delivery Me thod 06/14/22 07:00 MDM - Abdominal Pain Medical Decision Making Significant leukocytosis with an area of concern for cellulitis in the abdominal wall although exteriorly there is nothing. Discussed with hospitalist started IV vancomycin cultures done hospitalist plans to consult general surgery. There is no evidence of varicella. On the CT there is no evidence of fluid collection that is drainable per radiology. Medical Records I reviewed the patient's medical records. Lab Data I reviewed the patient's lab results. 06/14/22 08:09 06/14/22 08:09 Labs/Radiology: Radiology Impressions KUB X-Ray 06/14/22 07:08 IMPRESSION: No acute abnormality identified. Chest X-Ray 06/14/22 07:12 IMPRESSION: Interval development of complete lower lung opacities as above. Abdomen/Pelvis CT 06/14/22 08:58 IMPRESSION: 1. Inflammatory stranding and edema with fluid involving the LEFT lateral abdominal wall musculature. This involves the external and internal oblique muscles and transverse abdominis just extending to the undersurface of the rectus sheath. 2. Small amount of fluid centered at the 9th rib laterally at the costochondral junction. Recommend correlation for trauma versus infection/osteomyelitis versus inflammatory costochondritis 3. No drainable abscess or fluid collection at this time. 4. No intra-abdominal abnormalities. 5. Tiny LEFT pleural effusion with bibasilar atelectasis. 6. Prior cholecystectomy. Notified Lei Osuna DO at 06/14/2022 9:55 AM. Laboratory Results WBC 26.1 10^3/uL (4.0-10.0) H 06/14/22 08:09 RBC 5.34 10^6/uL (4.1-5.3) H 06/14/22 08:09 Hgb 15.0 g/dL (11.7-16.6) 06/14/22 08:09 Hct 46.1 % (42.0-52.0) 06/14/22 08:09 MCV 86.3 fl (80-94) 06/14/22 08:09 MCH 28.1 pg (28.0-34.0) 06/14/22 08:09 MCHC 32.5 g/dL (30.0-36.0) 06/14/22 08:09 RDW 13.5 % (12.1-15.1) 06/14/22 08:09 Plt Count 287 10^3/cmm (130-400) 06/14/22 08:09 MPV 9.4 fL (7.4-10.4) 06/14/22 08:09 Neut % (Auto) 85.0 % 06/14/22 08:09 Lymph % (Auto) 7.2 % 06/14/22 08:09 [place] % (Auto) 6.8 % 06/14/22 08:09 Eos % (Auto) 0.0 % 06/14/22 08:09 Baso % (Auto) 0.2 % 06/14/22 08:09 Neut # (Auto) 22.23 10^3/uL (1.8-7.7) H 06/14/22 08:09 Lymph # (Auto) 1.9 10^3/uL (0.8-4.8) 06/14/22 08:09 [place] # (Auto) 1.8 10^3/uL (0.2-0.9) H 06/14/22 08:09 Eos # (Auto) 0.0 10^3/uL (0.0-0.8) 06/14/22 08:09 Baso # (Auto) 0.0 10^3/uL (0.0-0.1) 06/14/22 08:09 Nucleated RBC % (auto) 0 % 06/14/22 08:09 Nucleated RBCs # 0.0 /100WBC 06/14/22 08:09 Sodium 131 mmol/L (136-145) L 06/14/22 08:09 Potassium 4.0 mmol/L (3.5-5.1) 06/14/22 08:09 Chloride 95 mmol/L (98-107) L 06/14/22 08:09 Carbon Dioxide 25 mmol/L (22-29) 06/14/22 08:09 Anion Gap 15.0 (5-19) 06/14/22 08:09 BUN 14 mg/dL (6-20) 06/14/22 08:09 Creatinine 1.1 mg/dL (0.7-1.2) 06/14/22 08:09 GFR Calculation 72.7 mL/min (90-130) L 06/14/22 08:09 Glucose 153 mg/dL (65-115) H 06/14/22 08:09 Calculated Osmolality 276 mOsm/kg (285-295) L 06/14/22 08:09 Lactic Acid 1.1 mmol/L (0.5-2.2) 06/14/22 08:09 Calcium 9.1 mg/dL (8.5-10.5) 06/14/22 08:09 Total Bilirubin 1.0 mg/dL (0.15-1.2) 06/14/22 08:09 AST 12 U/L (0-40) 06/14/22 08:09 ALT 18 U/L (0-41) 06/14/22 08:09 Alkaline Phosphatase 77 U/L (40-130) 06/14/22 08:09 Total Protein 7.3 g/dL (6.6-8.7) 06/14/22 08:09 Albumin 3.7 g/dL (3.5-5.2) 06/14/22 08:09 Globulin 3.6 g/dL (1.3-4.6) 06/14/22 08:09 Lipase 51 U/L (13-60) 06/14/22 08:09 Discharge Plan Discharge Patient Disposition: Admitted As Inpatient Clinical Impression: Abdominal wall cellulitis Condition: Stable Coding Level of Care Code ED Adoption Social Worker for Adilson Cedillo
[2022-06-14] MEDS: ondansetron 2 mg/ML SDV 2 mL 4 MG IVP ×2 (11:58→20:42)
[2022-06-14] MEDS: vancomycin 1,000 MG in sodium chloride 0.9% 250 ML 250 MG IV (11:59)
[2022-06-14] MEDS: morphine 4 mg/mL SDV 1 mL IVP (11:59)
[2022-06-14] MEDS: sodium chloride 0.9% 1,000 ML 999 ML IV (12:00)
--- NOTE | 2022-06-14 12:38 | PM.HP ---
Providers/Chief Complaint Admitting Physician: Vasiliy Dickerson MD Primary Care Provider: Junie Cain NP Chief Complaint: chest pain History of Present Illness Abdifatah Toscano is a 42 year old male presenting to the emergency department for the third time since May 27 although it appears he frequently uses emergency department. Since May 27 he is compliant of left-sided chest wall pain, progressively worsening. He also apparently has gone to [facility] as well. He denies any fevers, redness to the area, trauma. He states he has now started coughing some. It hurts to take a deep breath. He denies any hemoptysis, other productivity to the cough, or significant shortness of breath. He reports past history of drug use, but none currently. Any movement causes increased pain as well. He does relate a history of diverticulitis, diagnosed clinically in his physician's office based on location of his pain. We did take a fluoroquinolone for short while. There was no radiological confirmation of this. Review of Systems General: Reports: 10 or more systems reviewed and unremarkable except in HPI and below Const: Reports: fatigue; Denies: fever(s) or chills Eyes: Denies: change in vision ENMT: Denies: throat pain Card: Denies: chest pain Resp: Reports: non-productive cough GI: Reports: abdominal pain; Denies: nausea, vomiting, hematemesis, hematochezia or melena : Denies: flank pain Musc: Denies: neck pain Skin/Breast: Denies: rash Neuro: Denies: headache(s) Psych: Denies: anxiety or depression Endo: Denies: polyuria Adam/Lymph: Denies: easy bruising All/Imm: Denies: urticaria Medications/Allergies Home Medications Medication Instructions Recorded Confirmed Last Taken Type albuterol sulfate 90 mcg/actuation 2 puff inhalation QID PRN Wheezing 11/24/20 06/14/22 06/16/21 Rx aerosol inhaler 30 days acetaminophen 500 mg tablet 1,000 - 2,000 mg PO Q6H PRN Pain 03/04/22 06/14/22 Unknown History ipratropium 0.5 mg-albuterol 3 mg 3 ml inhalation Q6H PRN Wheezing 03/04/22 06/14/22 Unknown History (2.5 mg base)/3 mL nebulization soln lisinopril 40 mg tablet 40 mg PO QAM 03/04/22 06/14/22 05/20/22 History spironolactone 25 mg tablet 25 mg PO BID 03/04/22 06/14/22 05/20/22 History colchicine 0.6 mg tablet 0.6 mg PO BID 05/20/22 06/14/22 05/20/22 History famotidine 40 mg tablet 40 mg PO BEDTIME 05/20/22 06/14/22 05/19/22 History furosemide 20 mg tablet 20 mg PO DAILY PRN Edema 05/20/22 06/14/22 05/20/22 History metoprolol succinate 100 mg 100 mg PO QAM 05/20/22 06/14/22 05/20/22 History tablet,extended release 24 hr metoprolol succinate 50 mg capsule 50 mg PO QPM 05/20/22 06/14/22 05/19/22 History sprinkle, ext. release 24 hr hydrocodone 5 mg-acetaminophen 325 1 tab PO Q6H PRN pain #14 tabs 06/12/22 06/14/22 Unknown Rx mg tablet ondansetron 4 mg disintegrating 4 mg PO Q6H PRN nausea and 06/12/22 06/14/22 Unknown Rx tablet vomiting #14 tabs amlodipine 10 mg tablet 10 mg PO DAILY 06/14/22 06/14/22 Unknown History hydralazine 100 mg tablet 100 mg PO TID 06/14/22 06/14/22 Unknown History indomethacin 50 mg capsule 50 mg PO TID PRN Pain 06/14/22 06/14/22 Unknown History metronidazole 500 mg tablet 500 mg PO TID 06/14/22 06/14/22 Unknown History pantoprazole 40 mg tablet,delayed 40 mg PO DAILY 06/14/22 06/14/22 Unknown History release Allergies Allergy/AdvReac Type Severity Reaction Status Date / Time aspirin Allergy ALGY-Swell Verified 06/14/22 12:28 Lip/Tongue/Throat codeine Allergy ALGY-Swell Verified 06/14/22 12:28 Lip/Tongue/Throat dapagliflozin [From [facility]] Allergy ADR-Vomitin Verified 06/14/22 12:28 g Iodinated Contrast Media Allergy ALGY-Difficulty Verified 06/14/22 12:28 Breathing Penicillins Allergy ADR-Itching Verified 06/14/22 12:28 red dye Allergy ALGY-Swell Verified 06/14/22 12:28 Lip/Tongue/Throat sacubitril [From Entresto] Allergy ADR-Vomitin Verified 06/14/22 12:28 g valsartan [From Entresto] Allergy ADR-Vomitin Verified 06/14/22 12:28 g PFSH Acute PFSH: Medical History (Updated 06/14/22 @ 13:59 by Vasiliy Dickerson MD) CAD (coronary artery disease) Cardiomyopathy Reports nonischemic cardiomyopathy with EF 25 to 30% GERD (gastroesophageal reflux disease) Hypertension Surgical History S/P tendon repair Stented coronary artery Family History (Updated 06/14/22 @ 13:33 by Vasiliy Dickerson MD) Other Hypertension Social History Smoking and tobacco status: former smoker Quit status (tobacco): has quit using tobacco Second hand smoke exposure: Yes Alcohol intake: former Vitals/I&O/Wt Last Vital Signs Temp 97.2 F L 06/14/22 07:00 Pulse 10 L 06/14/22 07:00 Resp 16 06/14/22 07:00 BP 129/88 06/14/22 07:00 Pulse Ox 93 06/14/22 07:00 O2 Del Method 06/14/22 07:00 Weight last 48 hrs Weight 114.305 kg Physical Exam Narrative: General exam is a white male, in no distress, complaining of left abdominal wall pain. HEENT: Atraumatic normocephalic. Oropharynx clear Neck is supple no lymphadenopathy or thyromegaly Cardiovascular regular rate and rhythm. No murmur auscultated Lungs clear no wheezing or crackles Abdomen tenderness left abdominal wall, to lower portion of chest. No erythema. No obvious fluctuance. Perhaps slight edema compared to the opposite side. Positive bowel sounds. exams deferred Extremities no cyanosis clubbing or edema, cap refill brisk Skin no rash. Multiple piercings are noted but no surrounding erythema Neuro no obvious focal deficits Data 06/14/22 08:09 06/14/22 08:09 Other Labs: Chest x-ray bilateral lower lobe atelectasis or infiltrates KUB no concerns CT abdomen pelvis demonstrates inflammation and edema with fluid involving the left lateral abdominal wall musculature. External and internal oblique muscles as well as transverse abdominis involvement is noted extending to the undersurface of the rectus sheath Small amount of fluid centered at the ninth rib laterally. Tiny left pleural effusion noted LFTs are normal CRP and sedimentation rate have been ordered Blood cultures have been ordered Lipase is normal at 51 Urinalysis is benign EKG was also performed demonstrating normal sinus rhythm, normal axis, nonspecific ST-T wave changes most notable laterally. This is unchanged from previous EKGs. Micro: Microbiology 06/14/22 10:40 Blood Culture - Preliminary Blood SPECIMEN COLLECTED 06/14/22 10:34 Blood Culture - Preliminary Blood SPECIMEN COLLECTED A&P Assessment and plan (1) Abdominal pain: Patient presents with significant left-sided abdominal pain. A fluid collection was noted on CT. There is concern this represents a start of an abscess. I do not see any erythema in the underlying skin currently. During his last 3 ER visits white blood cell count has increased significantly, and the patient reports increasing pain. I am also concerned based on his appearance of chest x-ray and CAT scan that he may be developing pneumonia on the left. Blood cultures have been drawn Vancomycin has been initiated Add Levaquin, secondary to the concern of concomitant pneumonia. Of interest, he apparently was also treated clinically for diverticulitis several weeks ago. He reports no imaging at that time and treatment was done through his primary care providers office. He reports no prior history of diverticuli. Surgery consultation secondary to concern of possibly developing abscess but may require I&D Check echocardiogram based on his past history of IV drug use, and cardiomyopathy in this patient with possible infection. Check MRSA PCR (2) Cardiomyopathy: Check echocardiogram Continue chronic home medicines Monitor for any fluid overload Plan Multiple other medical problems as outlined in past medical history Full code currently SCDs alone for DVT prophylaxis currently. Cannot completely rule out hematoma in the left abdominal wall musculature Attestations Medical Necessity Statement*: Will need greater than 2 midnight stay for evaluation and treatment of developing abdominal wall abscess. 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
--- NOTE | 2022-06-14 12:58 | PC.PHAR ---
PT STS DR JAVIER DISCONTINUED CLOPIDOGREL 75 MG DAILY A COUPLE OF DAYS AGO - ALSO STS HE TAKES FUROSEMIDE 20 MG PRN.
[2022-06-14 13:32] LABS: Urine Appearance Clear (CLEAR); Urine Color Yellow (Yellow)
[2022-06-14 13:33] LABS: Add Urine Microscopic? YES; Bacteria Urine TRACE /hpf; Bilirubin Urine Neg (Negative); Blood Urine Neg (Negative); Glucose Urine UA Norm (Normal); Ketones Urine 1+ (Negative); Leukocyte Esterase Urine Negative (Negative); Nitrate Urine Negative (Negative); Protein Urine 1+ (Negative); Specific Gravity, Urine 1.025 (1.005-1.030); Urobilinogen Urine 4 mg/dL (Negative); pH Urine 5 (5-7)
[2022-06-14 13:34] LABS: Add Urine Culture? No; Mucus Urine 4+ /hpf
[2022-06-14 13:47] LABS: Erythrocyte Sedimentation Rate 26 mm/hr (0-10)
--- NOTE | 2022-06-14 13:59 | USCV_ITS ---
Abdifatah Toscano Age: 42 Gender: M : 1980 Exam Date: 06/14/2022 17:00 Ordering Phys: Vasiliy Dickerson MD Technologist: Edward Moreira Exam Location: [facility] [place] Indication: CARDIOMYOPATHY BP: 153 / 92 HR: 104 Rhythm: Sinus Technical Quality: Suboptimal MEASUREMENTS (Male / Female) Normal Values 2D ECHO LV Diastolic Diameter PLAX 4.8 cm 4.2 - 5.9 / 3.9 - 5.3 cm LV Systolic Diameter PLAX 3.2 cm IVS Diastolic Thickness 1.0 cm 0.6 - 1.0 / 0.6 - 0.9 cm IVS Systolic Thickness 1.4 cm LVPW Diastolic Thickness 1.0 cm 0.6 - 1.0 / 0.6 - 0.9 cm LVPW Systolic Thickness 1.6 cm LVOT Diameter 2.0 cm LV Ejection Fraction 2D Teich 61.8 % LV Ejection Fraction MOD 2C 69.1 % LV Ejection Fraction 2C AL 68.6 % LA Diameter 3.7 cm LA Width 3.4 cm LA Height 4.4 cm RA Width 3.5 cm RA Height 4.2 cm Aorta at Sinotubular Diameter 2.3 cm IVC Diameter 1.4 cm M-MODE Aortic Annulus Diameter 3.2 cm LA Ao Ratio MM 1.2 MV E Point Septal Separation 0.6 cm DOPPLER AV Peak Velocity 158.7 cm/s LVOT Peak Velocity 103.0 cm/s AV Area Cont Eq vti 2.3 cm squared AV Area Cont Eq pk 2.1 cm squared MV Peak Velocity 74.0 cm/s MV Area PHT 6.5 cm squared Mitral E to A Ratio 0.9 MV E' Velocity 36.0 cm/s Mitral E to MV E' Ratio 7.5 Mitral E to LV E' Lateral Ratio 6.4 Mitral E to LV E' Septal Ratio 9.2 TR Peak Velocity 220.4 cm/s TR Peak Gradient 19.4 mmHg TR Mean Velocity 174.2 cm/s TR Mean Gradient 14.2 mmHg TR Velocity Time Integral 55.3 cm Right Atrial Pressure 3.0 mmHg Pulmonary Artery Systolic Pressu 22.4 mmHg PV Peak Velocity 126.7 cm/s RV Acceleration Time 0.1 s RV Ejection Time 0.2 s RV AcT/ET 0.4 FINDINGS Left Ventricle Normal left ventricular cavity size and systolic function. Left ventricular ejection fraction is estimated at 60 %. No regional wall motion abnormality. Normal diastolic function. Right Ventricle Normal right ventricular size and systolic function. Right ventricular systolic pressure 32 mmHg. Right Atrium Normal right atrial size. Left Atrium Normal left atrial size. Mitral Valve Structurally normal mitral valve. Aortic Valve Aortic valve not well visualized. No aortic valve stenosis. No aortic valve regurgitation. Tricuspid Valve Structurally normal tricuspid valve. Trace tricuspid valve regurgitation. Pulmonic Valve Pulmonic valve not well visualized. No pulmonary valve stenosis. Pericardium No pericardial effusion. Aorta Aorta not well visualized. IVC Normal IVC dimension with >50% respiratory change of the inferior vena cava. CONCLUSIONS 1. This is a technically difficult study. Optison was used per protocol. 2. Normal left ventricular cavity size and systolic function. Left ventricular ejection fraction is estimated at 60 %. No regional wall motion abnormality. Normal diastolic function. 3. Normal right ventricular size and systolic function. 4. Pulmonary artery pressure estimated at 32 mmHg. 5. No prior similar studies to compare. Fanny Moran MD (Electronically Signed) Final Date: 15 June 2022 16:49 S
[2022-06-14 14:02] LABS: C Reactive Protein 217.6 mg/L (0.0-4.9)
--- NOTE | 2022-06-14 14:36 | P.CONIM_ITS ---
Providers/Reason For Consult Consulting Physician/Specialty*: Daquan Frey MD Reason for Consult*: Myositis Requesting Physician: Dr. Dickerson Attending Physician: Vasiliy Dickerson MD Primary Care Provider: Junie Cain NP History of Present Illness History of Present Illness Mr. Abdifatah Toscano is a 42 year old male presents to the emergency department complaining of left-sided torso pain that has been getting worse. Apparently the patient had visited the emergency department 3 times including today's visit. Patient reports that he has been having ongoing pain for the past couple of weeks around the left side of his torso, dull aching nothing seems to make it better or worse. Denies any kind of trauma including but not limited to needlestick, tattooing, falling off or any other sort of traumas. Denies being sick or surrounded by sick personnel. Blood work showed 26.1 thousand WBC count. Stable H&H. Serum creatinine 1.1 and lactic acid 1.1. And serum lipase 51. On June 12, [address] of the abdomen pelvis that showed no acute findings and a repeat CT today showed 1.? Inflammatory stranding and edema with fluid involving the LEFT lateral abdominal wall musculature. This involves the external and internal oblique muscles and transverse abdominis just extending to the undersurface of the rectus sheath. 2.? Small amount of fluid centered at the 9th rib laterally at the costochondral junction. Recommend correlation for trauma versus infection/osteomyelitis versus inflammatory costochondritis 3.? No drainable abscess or fluid collection at this time. 4.? No intra-abdominal abnormalities. 5.? Tiny LEFT pleural effusion with bibasilar atelectasis. 6.? Prior cholecystectomy. ? Patient was seen and evaluated by the hospitalist service and was placed on broad-spectrum antimicrobial therapy, general surgery was consulted for further evaluation. Patient was seen and evaluated in room #14 the ED Review of Systems General: Reports: 10 or more systems reviewed and unremarkable except in HPI and below Medications/Allergies Home Medications Medication Instructions Recorded Confirmed Last Taken Type albuterol sulfate 90 mcg/actuation 2 puff inhalation QID PRN Wheezing 11/24/20 06/14/22 06/16/21 Rx aerosol inhaler 30 days acetaminophen 500 mg tablet 1,000 - 2,000 mg PO Q6H PRN Pain 03/04/22 06/14/22 Unknown History ipratropium 0.5 mg-albuterol 3 mg 3 ml inhalation Q6H PRN Wheezing 03/04/22 06/14/22 Unknown History (2.5 mg base)/3 mL nebulization soln lisinopril 40 mg tablet 40 mg PO QAM 03/04/22 06/14/22 05/20/22 History spironolactone 25 mg tablet 25 mg PO BID 03/04/22 06/14/22 05/20/22 History colchicine 0.6 mg tablet 0.6 mg PO BID 05/20/22 06/14/22 05/20/22 History famotidine 40 mg tablet 40 mg PO BEDTIME 05/20/22 06/14/22 05/19/22 History furosemide 20 mg tablet 20 mg PO DAILY PRN Edema 05/20/22 06/14/22 05/20/22 History metoprolol succinate 100 mg 100 mg PO QAM 05/20/22 06/14/22 05/20/22 History tablet,extended release 24 hr metoprolol succinate 50 mg capsule 50 mg PO QPM 05/20/22 06/14/22 05/19/22 History sprinkle, ext. release 24 hr hydrocodone 5 mg-acetaminophen 325 1 tab PO Q6H PRN pain #14 tabs 06/12/22 06/14/22 Unknown Rx mg tablet ondansetron 4 mg disintegrating 4 mg PO Q6H PRN nausea and 06/12/22 06/14/22 Unknown Rx tablet vomiting #14 tabs amlodipine 10 mg tablet 10 mg PO DAILY 06/14/22 06/14/22 Unknown History hydralazine 100 mg tablet 100 mg PO TID 06/14/22 06/14/22 Unknown History indomethacin 50 mg capsule 50 mg PO TID PRN Pain 06/14/22 06/14/22 Unknown History metronidazole 500 mg tablet 500 mg PO TID 06/14/22 06/14/22 Unknown History pantoprazole 40 mg tablet,delayed 40 mg PO DAILY 06/14/22 06/14/22 Unknown History release Allergies Allergy/AdvReac Type Severity Reaction Status Date / Time aspirin Allergy ALGY-Swell Verified 06/14/22 14:39 Lip/Tongue/Throat codeine Allergy ALGY-Swell Verified 06/14/22 14:39 Lip/Tongue/Throat dapagliflozin [From Farxiga] Allergy ADR-Vomitin Verified 06/14/22 14:39 g Iodinated Contrast Media Allergy ALGY-Difficulty Verified 06/14/22 14:39 Breathing Penicillins Allergy ADR-Itching Verified 06/14/22 14:39 red dye Allergy ALGY-Swell Verified 06/14/22 14:39 Lip/Tongue/Throat sacubitril [From Entresto] Allergy ADR-Vomitin Verified 06/14/22 14:39 g valsartan [From Entresto] Allergy ADR-Vomitin Verified 06/14/22 14:39 g PFSH Acute PFSH: Medical History CAD (coronary artery disease) Cardiomyopathy Reports nonischemic cardiomyopathy with EF 25 to 30% GERD (gastroesophageal reflux disease) Hypertension Surgical History S/P tendon repair Stented coronary artery Family History Other Hypertension Social History Smoking and tobacco status: former smoker Quit status (tobacco): has quit using tobacco Second hand smoke exposure: Yes Alcohol intake: former Vitals/I&O/Wt Last Vital Signs Temp 97.2 F L 06/14/22 07:00 Pulse 99 06/14/22 14:17 Resp 20 H 06/14/22 14:17 BP 129/88 06/14/22 07:00 Pulse Ox 94 06/14/22 14:17 O2 Del Method 06/14/22 14:17 Weight last 48 hrs Weight 252 lb Physical Exam Narrative: Patient is conscious alert oriented X3 No apparent distress BMI 35.1 Head and neck examination PERRLA no masses no cervical lymphadenopathy no jaundice Cardiac examination audible S1-S2 no murmurs no gallops no arrhythmias Chest is clear bilateral,abscence of Rhonchi or wheezes,no surgical emphysema Abdomen nontender except at the left side of patient's torso with cellulitic hue. No evidence of crepitus. Concerning for underlying myositis. Nondistended soft no organomegaly guarding or rigidity/no signs of peritonitis Bilateral groin examination unremarkable as well as bilateral flank exam. Extremities no cyanosis no clubbing no edema Data 06/14/22 08:09 06/14/22 08:09 Micro: Microbiology 06/14/22 10:40 Blood Culture - Preliminary Blood SPECIMEN COLLECTED 06/14/22 10:34 Blood Culture - Preliminary Blood SPECIMEN COLLECTED A&P Assessment and plan (1) Abdominal wall cellulitis: After history taking physical examination and reviewing the chart and images with my personal interpretation I can appreciate stranding of the underlying left lateral abdominal wall compartment and underlying myositis/costochondritis is a consideration. I agree no fluid collection seen or abscess to be drained. At this point. Strict I's and O's Hydration Broad-spectrum antibiotics Repeated physical examination No acute surgical indication warranted at this point Will continue to follow on patient's clinical progress Assurance and education All questions have been answered and all concerns have been addressed to patient's satisfaction. 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
[2022-06-14] MEDS: hyDRALAzine 50 mg Tablet 100 MG PO ×2 (15:28→20:42)
[2022-06-14] MEDS: HYDROcodone-acetaminophen 5-325 mg Tablet 1 TAB PO ×2 (15:28→21:30)
[2022-06-14] MEDS: levofloxacin-dextrose 5 % 750 MG/150 ML PREMIX 100 MG IV (15:29)
[2022-06-14] MEDS: benzonatate 100 mg Capsule 200 MG PO ×2 (16:12→21:30)
[2022-06-14] MEDS: spironolactone 25 mg Tablet PO (17:40)
[2022-06-14] MEDS: metoprolol succinate ER (24 HR) 50 mg Tablet PO (17:40)
[2022-06-14] MEDS: colchicine 0.6 mg Tablet PO (17:40)
[2022-06-14] MEDS: morphine 4 mg/mL SDV 1 mL 2 MG IVP (17:59)
[2022-06-14] MEDS: vancomycin 1,500 MG/300 ML PIGGYBACK 200 MG IV (21:30)
[2022-06-15] VITALS (7 sets, daily range): BP systolic 99–123; BP diastolic 62–72; PULSE 63–94; RESP 14–17; TEMP 36.4–37.7; O2SAT 92–95
[2022-06-15] MEDS: benzonatate 100 mg Capsule 200 MG PO ×2 (02:32→15:31)
[2022-06-15] MEDS: acetaminophen 325 mg Tablet 650 MG PO (02:32)
[2022-06-15] MEDS: trazodone 50 mg Tablet PO (02:32)
[2022-06-15 05:44] LABS: Basophils % 0.2 %; Eosinophils % 0.1 %; Hematocrit 37.6 % (42.0-52.0); Hemoglobin 12.4 g/dL (11.7-16.6); Lymphocytes % 10.2 %; Mean Corpuscular Hemoglobin 28.1 pg (28.0-34.0); Mean Corpuscular Volume 85.1 fl (80-94); Mean Platelet Volume 9.6 fL (7.4-10.4); Monocytes # 1.5 10^3/uL (0.2-0.9); Monocytes % 7.7 %; Neutrophils # 16.08 10^3/uL (1.8-7.7); Neutrophils % 80.9 %; Nucleated Red Blood Cells % 0 %; Platelet Count 271 10^3/cmm (130-400); Red Blood Count 4.42 10^6/uL (4.1-5.3); Red Cell Distribution Width 13.5 % (12.1-15.1); White Blood Count 19.9 10^3/uL (4.0-10.0)
[2022-06-15 06:09] LABS: Blood Urea Nitrogen 16 mg/dL (6-20); Calcium 8.5 mg/dL (8.5-10.5); Carbon Dioxide 25 mmol/L (22-29); Chloride 94 mmol/L (98-107); Glomerular Filtration Rate 81.2 mL/min (90-130); Glucose 116 mg/dL (65-115); Osmolality Calculated 270 mOsm/kg (285-295); Sodium 129 mmol/L (136-145)
[2022-06-15] MEDS: HYDROcodone-acetaminophen 5-325 mg Tablet 1 TAB PO ×3 (06:16→21:00)
[2022-06-15] MEDS: lisinopril 20 mg Tablet 40 MG PO (06:17)
[2022-06-15] MEDS: metoprolol succinate ER (24 HR) 100 mg Tablet PO (06:17)
[2022-06-15] MEDS: pantoprazole DR 40 mg Tablet PO (08:31)
[2022-06-15] MEDS: hyDRALAzine 50 mg Tablet 100 MG PO (08:31)
[2022-06-15] MEDS: spironolactone 25 mg Tablet PO (08:31)
[2022-06-15] MEDS: vancomycin 1,500 MG/300 ML PIGGYBACK 200 MG IV ×2 (08:31→21:26)
[2022-06-15] MEDS: amlodipine 10 mg Tablet PO (08:31)
[2022-06-15] MEDS: colchicine 0.6 mg Tablet PO ×2 (08:34→17:53)
--- NOTE | 2022-06-15 08:47 | P.PN_ITS ---
Subjective Subjective: Patient reports he still having a significant amount of pain to the left abdomen/side. It hurts with any movement. He does not feel like he is any better from yesterday. Medications: Reviewed: Yes Vitals/I&O/Wt Last Vital Signs Temp 97.9 F 06/15/22 08:00 Pulse 68 06/15/22 08:00 Resp 16 06/15/22 08:00 BP 111/70 06/15/22 08:00 Pulse Ox 95 06/15/22 08:00 O2 Del Method 06/15/22 08:00 06/14/22 06/15/22 06/15/22 22:59 06:59 14:59 Intake Total 1640 / 1640 300 / 1940 Balance 1640 / 1640 300 / 1940 Weight last 48 hrs Weight 114.305 kg Physical Exam Narrative: TodayGeneral exam is a white male, in no distress, complaining of left abdominal wall pain. HEENT: Atraumatic normocephalic. Oropharynx clear Neck is supple no lymphadenopathy or thyromegaly Cardiovascular regular rate and rhythm. No murmur auscultated Lungs clear no wheezing or crackles Abdomen tenderness left abdominal wall, to lower portion of chest. Slight erythema.. No obvious fluctuance. Perhaps slight edema compared to the opposite side. Positive bowel sounds. exams deferred Extremities no cyanosis clubbing or edema, cap refill brisk Skin with slight erythema left side Data 06/15/22 05:25 06/15/22 05:25 Micro: Microbiology 06/14/22 10:40 Blood Culture - Preliminary Blood SPECIMEN COLLECTED 06/14/22 10:34 Blood Culture - Preliminary Blood SPECIMEN COLLECTED A&P Assessment and plan (1) Abdominal pain: Patient presents with significant left-sided abdominal pain. A fluid collection was noted on CT. There is concern this represents a start of an abscess. Slight erythema is seen today consistent with cellulitis.. During his last 3 ER visits white blood cell count has increased significantly, and the patient reports increasing pain. I am also concerned based on his appearance of chest x-ray and CAT scan that he may be developing pneumonia on the left. Blood cultures have been drawn Vancomycin has been initiated Continue Levaquin which was added secondary to the concern of concomitant pne umonia. Of interest, he apparently was also treated clinically for diverticulitis several weeks ago. He reports no imaging at that time and treatment was done through his primary care providers office. He reports no prior history of diverticuli. His white blood cell count is decreasing Appreciate surgical consult. Potentially may require I&D if develops drainable abscess. Await echocardiogram based on his past history of IV drug use, and cardiomyopathy in this patient with possible infection. Await MRSA PCR (2) Cardiomyopathy: Await echocardiogram Continue chronic home medicines Monitor for any fluid overload Plan Multiple other medical problems as outlined in past medical history Full code currently SCDs for DVT prophylaxis. No anticoagulation secondary to rare possibility this could be hematoma. Also do not want to introduce any needles to the abdominal area currently. Attestations Medical Necessity Statement*: Needs continued hospitalization for IV antibiotics for abdominal wall cellulitis. Coding Level of Care Code Acute Hazardous Substances Scientist for Adilson Cedillo Diagnoses Abdominal pain R10.9 Cardiomyopathy I42.9
[2022-06-15] MEDS: morphine 4 mg/mL SDV 1 mL 2 MG IVP (12:57)
[2022-06-15] MEDS: perflutren protein-a microsphr 0.22 mg/mL SDV 3 mL IV (15:05)
[2022-06-15] MEDS: levofloxacin-dextrose 5 % 750 MG/150 ML PREMIX 100 MG IV (15:31)
--- NOTE | 2022-06-15 20:50 | PC.NURSE ---
Previous shift reported a low BP this afternoon, to which dayshift doctors had BP meds held. Vitals retaken this evening and BP was still low. Dr Flannery was contacted via secure messaging regarding BP and if this nurse needed to hold BP meds. Dr Flannery stated to hold BP meds, but it was okay to administer opioids.
[2022-06-15 21:21] LABS: Vancomycin Trough 11.3 ug/mL (10-15)
[2022-06-16] VITALS (13 sets, daily range): BP systolic 102–127; BP diastolic 63–75; PULSE 64–83; RESP 12–20; TEMP 36.7–37; O2SAT 93–97
--- NOTE | 2022-06-16 | US_ITS ---
WS: [id number] ULTRASOUND GUIDED BIOPSY LEFT LOWER CHEST WALL MASS. ULTRASOUND-GUIDED ASPIRATION LEFT LOWER CHEST WALL. HISTORY: infection left abdominal wall Procedure, risks, and complications are explained to the patient. Consent was obtained. Skin is clean sed with ChloraPrep and anesthetized with 1% buffered lidocaine. Prior imaging studies are reviewed prior to biopsy. There is a complex collection along the LEFT lower chest wall and into the upper abdomen. There is in crease fluid pockets with soft tissue thickening and inflammation. Under sterile conditions complex fluid collection is aspirated with an 18-gauge spinal needle. Thick opaque pus is removed. Approximately 10 to 12 cc are removed without difficulty. This will be sent fo r culture and sensitivity analysis. The collection aspirated measures at least 3.2 x 1.3 cm. This complex collection is then biopsied with a 20-gauge core needle. 2 biopsies are performed throug h the thick-walled collection. US/US biopsy muscle IMPRESSION: 1. Uncomplicated aspiration of the complex fluid collection along the LEFT low er chest wall. Sent for culture and sensitivity. 2. Uncomplicated core biopsy soft tissue component surrounding the abscess milana ng the LEFT lower chest wall. This specimen is sent for pathology.
[2022-06-16] MEDS: morphine 4 mg/mL SDV 1 mL 2 MG IVP ×4 (02:22→23:19)
[2022-06-16 05:59] LABS: Basophils % 0.1 %; Eosinophils # 0.1 10^3/uL (0.0-0.8); Eosinophils % 0.3 %; Hemoglobin 11.7 g/dL (11.7-16.6); Lymphocytes # 1.8 10^3/uL (0.8-4.8); Lymphocytes % 11.6 %; Mean Corpuscular HGB Conc 32.5 g/dL (30.0-36.0); Mean Corpuscular Hemoglobin 27.9 pg (28.0-34.0); Mean Corpuscular Volume 85.9 fl (80-94); Mean Platelet Volume 9.5 fL (7.4-10.4); Monocytes # 1.3 10^3/uL (0.2-0.9); Monocytes % 8.2 %; Neutrophils # 12.22 10^3/uL (1.8-7.7); Nucleated Red Blood Cells % 0 %; Platelet Count 277 10^3/cmm (130-400); Red Blood Count 4.19 10^6/uL (4.1-5.3); Red Cell Distribution Width 13.7 % (12.1-15.1); White Blood Count 15.5 10^3/uL (4.0-10.0)
[2022-06-16] MEDS: metoprolol succinate ER (24 HR) 100 mg Tablet PO (06:04)
[2022-06-16] MEDS: HYDROcodone-acetaminophen 5-325 mg Tablet 1 TAB PO ×2 (06:04→12:09)
[2022-06-16 06:20] LABS: Blood Urea Nitrogen 17 mg/dL (6-20); Calcium 8.6 mg/dL (8.5-10.5); Carbon Dioxide 24 mmol/L (22-29); Chloride 98 mmol/L (98-107); Glomerular Filtration Rate 81.2 mL/min (90-130); Glucose 97 mg/dL (65-115); Osmolality Calculated 275 mOsm/kg (285-295); Sodium 132 mmol/L (136-145)
--- NOTE | 2022-06-16 07:40 | PM.PN ---
Subjective Subjective: Patient was seen and examined today. Trending down of leukocytosis to 15.5. In spite of that patient continues to hurt particularly on the left side and the left costal margin. Medications: Reviewed: Yes Vitals/I&O/Wt Last Vital Signs Temp 98.1 F 06/16/22 04:00 Pulse 70 06/16/22 04:00 Resp 15 06/16/22 04:00 BP 125/75 06/16/22 04:00 Pulse Ox 96 06/16/22 04:00 O2 Del Method 06/16/22 04:00 06/15/22 06/16/22 06/16/22 22:59 06:59 14:59 Intake Total 750 / 1050 300 / 1350 Balance 750 / 1050 300 / 1350 Physical Exam Narrative: Patient is conscious alert oriented X3 No apparent distress BMI 35.1 Head and neck examination PERRLA no masses no cervical lymphadenopathy no jaundice Maximal tenderness located on the mid portion of the left costal margin, likely consistent with the underlying costochondritis. Less tenderness appreciated over the actual soft tissue portion of the abdominal wall muscles on the left lateral compartment. No evidence of crepitus. Data 06/16/22 05:43 06/16/22 05:43 Micro: Microbiology 06/15/22 02:35 MRSA Culture - Final Nose 06/14/22 10:40 Blood Culture - Preliminary Blood NEGATIVE TO DATE 06/14/22 10:34 Blood Culture - Preliminary Blood NEGATIVE TO DATE A&P Assessment and plan (1) Costochondritis, acute: From general surgery standpoint of view as of now there is no indication for I&D as there is no evidence of abscess collection. Repeating CT imaging versus ultrasound soft tissues may help monitoring more objectively the disease process. Cardiothoracic surgery input may be appreciated at this point for further management Will continue coordinating care with hospitalist service. Certainly antimicrobial therapy is helping at this point. Assurance and education All questions have been answered and all concerns have been addressed to patient's satisfaction. Attestations Medical Necessity Statement*: Per admitting service Coding Level of Care Code Acute Manager Meeting for [facility] Fwd Diagnoses Costochondritis, acute M94.0
--- NOTE | 2022-06-16 08:50 | CT_ITS ---
WS: [id number] CT ABDOMEN PELVIS TECHNIQUE: Noncontrast CT of the abdomen and pelvis with coronal and sagittal reformatted images. CLINICAL INFORMATION: pain, possible abcess left abdominal wall COMPARISON: CT 06/14 and 06/12/2022 DLP: 1780.[address] scans at [facility] use at least one of these dose optimization techniques: automated e xposure control; mA and/or kV adjustment per patient size (includes targeted exams where dose is matc hed to clinical indication); or iterative reconstruction. FINDINGS: Small LEFT pleural effusion appears slightly increased from June 06, 2022. LEFT basilar infiltrat e/atelectasis. Atelectasis RIGHT middle lobe and RIGHT lower lobe with slight air bronchograms RIGHT lower lobe. Trace RIGHT pleural fluid. Soft tissue edema involving the LEFT anterior lateral abdominal wall with surrounding subcutaneous in duration. Subcutaneous induration and inflammation appears slightly improved compared to previous. So ft tissue edema about the 9th rib laterally at the costochondral junction does not appear significant ly changed. Fluid at the costochondral junction appears unchanged since June 14, 2022. Mild inden tation on the LEFT ventral peritoneum unchanged in appearance. No evidence of intra-abdominal extensi on. Findings most compatible with infection with fluid or possible phlegmon at the costochondral junc tion. No well-defined or drainable fluid collection. No other significant interval changes. Cholecystectomy. Noncontrast liver and spleen are normal. Norm al GE junction. Adrenal glands are normal. No hydronephrosis in either kidney. Tiny fat-containing in guinal hernias. Noncontrast pancreas is normal. Sigmoid diverticulosis. CT/CT abdomen pelvis wo con [id number] IMPRESSION: 1. Small LEFT pleural effusion with compressive atelectasis and infiltrates LE FT lower lobe. LEFT pleural effusion slightly increased from previous. 2. Trace RIGHT pleural fluid with subsegmental atelectasis RIGHT lower lobe. 3. LEFT lateral abdominal wall inflammatory changes and edema not significantl y changed in appearance. This appears centered at the LEFT 9th rib laterally at the costochondral junction with a small amount of fluid or phlegmon at the cos tochondral junction. This is unchanged in appearance. No well-defined drainable abscess. Findings suspicious for infection. 4. No other remarkable interval changes. Notified Vasiliy Dickerson MD at 06/16/2022 12:00 PM.
--- NOTE | 2022-06-16 08:51 | PM.PN ---
Subjective Subjective: Abdifatah reports continued significant pain in his left side. He believes it is worse. No fevers noted overnight. He is able to eat. Medications: Reviewed: Yes Vitals/I&O/Wt Last Vital Signs Temp 98.0 F 06/16/22 07:45 Pulse 64 06/16/22 08:10 Resp 16 06/16/22 08:10 BP 123/71 06/16/22 07:45 Pulse Ox 95 06/16/22 08:10 O2 Del Method 06/16/22 08:10 06/15/22 06/16/22 06/16/22 22:59 06:59 14:59 Intake Total 750 / 1050 300 / 1350 Balance 750 / 1050 300 / 1350 Physical Exam Narrative: General exam, complaining of pain. No obvious distress. Neck is supple no lymphadenopathy or thyromegaly Cardiovascular regular rate and rhythm. No murmur auscultated Lungs clear no wheezing or crackles Abdomen tenderness left abdominal wall, to lower portion of chest. No fluctuance. Positive bowel sounds. Edema is noted left flank with erythema. exams deferred Extremities no cyanosis clubbing or edema, cap refill brisk Skin with slight erythema left side Data 06/16/22 05:43 06/16/22 05:43 Micro: Microbiology 06/15/22 02:35 MRSA Culture - Final Nose 06/14/22 10:40 Blood Culture - Preliminary Blood NEGATIVE TO DATE 06/14/22 10:34 Blood Culture - Preliminary Blood NEGATIVE TO DATE A&P Assessment and plan (1) Abdominal pain: Patient presents with significant left-sided abdominal pain. A fluid collection was noted on CT. There is concern this represents a start of an abscess. Slight erythema is seen consistent with cellulitis.. During his last 3 ER visits white blood cell count has increased significantly, and the patient reports increasing pain. I am also concerned based on his appearance of chest x-ray and CAT scan that he may be developing pneumonia on the left. Blood cultures have been drawn Vancomycin has been initiated Continue Levaquin which was added secondary to the concern of concomitant pneumonia. Of interest, he apparently was also treated clinically for diverticulitis several weeks ago. He reports no imaging at that time and treatment was done through his primary care providers office. He reports no prior history of diverticuli. His white blood cell count continues to decrease. Blood cultures have been negative. Appreciate surgical consult. Potentially may require I&D if develops drainable abscess. Repeat CT scan today as pain seems to be increasing. Worried about development of an abscess. A transthoracic echocardiogram was obtained based on his past history of IV drug use, and cardiomyopathy in this patient with possible infection. This was normal MRSA PCR negative (2) Cardiomyopathy: Await echocardiogram Continue chronic home medicines Monitor for any fluid overload Plan Hypertension. Did run lower yesterday. Discontinue his Norvasc. Reduced metoprolol. Multiple other medical problems as outlined in past medical history Full code currently SCDs for DVT prophylaxis. No anticoagulation secondary to rare possibility this could be hematoma. Also do not want to introduce any needles to the abdominal area currently. 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
[2022-06-16] MEDS: hyDRALAzine 50 mg Tablet 100 MG PO ×2 (08:56→16:15)
[2022-06-16] MEDS: spironolactone 25 mg Tablet PO (08:57)
[2022-06-16] MEDS: pantoprazole DR 40 mg Tablet PO (08:57)
[2022-06-16] MEDS: vancomycin 1,500 MG/300 ML PIGGYBACK 200 MG IV ×2 (08:57→20:26)
[2022-06-16] MEDS: colchicine 0.6 mg Tablet PO ×2 (09:05→17:05)
[2022-06-16 09:21] LABS: C Reactive Protein 148.9 mg/L (0.0-4.9)
[2022-06-16] MEDS: benzonatate 100 mg Capsule 200 MG PO (12:58)
--- NOTE | 2022-06-16 14:00 | US_ITS ---
WS: [id number] ULTRASOUND GUIDED BIOPSY LEFT LOWER CHEST WALL MASS. ULTRASOUND-GUIDED ASPIRATION LEFT LOWER CHEST WALL. HISTORY: infection left abdominal wall Procedure, risks, and complications are explained to the patient. Consent was obtained. Skin is clean sed with ChloraPrep and anesthetized with 1% buffered lidocaine. Prior imaging studies are reviewed prior to biopsy. There is a complex collection along the LEFT lower chest wall and into the upper abdomen. There is in crease fluid pockets with soft tissue thickening and inflammation. Under sterile conditions complex fluid collection is aspirated with an 18-gauge spinal needle. Thick opaque pus is removed. Approximately 10 to 12 cc are removed without difficulty. This will be sent fo r culture and sensitivity analysis. The collection aspirated measures at least 3.2 x 1.3 cm. This complex collection is then biopsied with a 20-gauge core needle. 2 biopsies are performed throug h the thick-walled collection. US/US guide [facility] asp a/c/h [id number] IMPRESSION: 1. Uncomplicated aspiration of the complex fluid collection along the LEFT low er chest wall. Sent for culture and sensitivity. 2. Uncomplicated core biopsy soft tissue component surrounding the abscess milana ng the LEFT lower chest wall. This specimen is sent for pathology.
[2022-06-16] MEDS: morphine 4 mg/mL SDV 1 mL IVP (14:20)
[2022-06-16] MEDS: levofloxacin-dextrose 5 % 750 MG/150 ML PREMIX 100 MG IV (15:21)
[2022-06-16] MEDS: ondansetron 2 mg/ML SDV 2 mL 4 MG IVP (16:56)
[2022-06-17] VITALS (11 sets, daily range): BP systolic 129–154; BP diastolic 74–92; PULSE 65–78; RESP 12–18; TEMP 36.4–37.3; O2SAT 93–96
[2022-06-17] MEDS: guaiFENesin 100 mg/5 mL UDC 10 mL 200 MG PO ×2 (00:31→14:29)
[2022-06-17] MEDS: HYDROcodone-acetaminophen 5-325 mg Tablet 1 TAB PO ×3 (01:56→17:35)
[2022-06-17 05:24] LABS: Basophils % 0.3 %; Eosinophils % 0.3 %; Hematocrit 34.6 % (42.0-52.0); Hemoglobin 11.2 g/dL (11.7-16.6); Lymphocytes # 1.8 10^3/uL (0.8-4.8); Lymphocytes % 14.9 %; Mean Corpuscular HGB Conc 32.4 g/dL (30.0-36.0); Mean Corpuscular Hemoglobin 28.1 pg (28.0-34.0); Mean Corpuscular Volume 86.9 fl (80-94); Mean Platelet Volume 9.4 fL (7.4-10.4); Monocytes % 8.6 %; Neutrophils # 8.97 10^3/uL (1.8-7.7); Neutrophils % 75.1 %; Nucleated Red Blood Cells % 0 %; Platelet Count 291 10^3/cmm (130-400); Red Blood Count 3.98 10^6/uL (4.1-5.3); Red Cell Distribution Width 13.5 % (12.1-15.1)
[2022-06-17 05:51] LABS: Anion Gap 10.7 (5-19); Blood Urea Nitrogen 15 mg/dL (6-20); Calcium 8.5 mg/dL (8.5-10.5); Carbon Dioxide 26 mmol/L (22-29); Chloride 99 mmol/L (98-107); Glomerular Filtration Rate 91.7 mL/min (90-130); Glucose 126 mg/dL (65-115); Osmolality Calculated 276 mOsm/kg (285-295); Potassium 3.7 mmol/L (3.5-5.1); Sodium 132 mmol/L (136-145)
[2022-06-17] MEDS: ipratropium-albuterol 3 mL Neb INHALATION (08:34)
--- NOTE | 2022-06-17 09:21 | PM.PN ---
Subjective Subjective: Abdifatah reports his pain is a little bit better. This improved after his needle aspirate yesterday. Medications: Reviewed: Yes Vitals/I&O/Wt Last Vital Signs Temp 97.6 F 06/17/22 08:00 Pulse 68 06/17/22 08:41 Resp 18 06/17/22 08:36 BP 154/92 06/17/22 08:00 Pulse Ox 94 06/17/22 08:36 O2 Del Method 06/17/22 08:36 06/16/22 06/17/22 06/17/22 22:59 06:59 14:59 Intake Total 690 / 1230 360 / 1590 Balance 690 / 1230 360 / 1590 Physical Exam Narrative: General exam, no distress Neck is supple no lymphadenopathy or thyromegaly Cardiovascular regular rate and rhythm. No murmur auscultated Lungs clear no wheezing or crackles Abdomen tenderness left abdominal wall, to lower portion of chest. No fluctuance. Positive bowel sounds. Edema is noted left flank with erythema. Dressing in place Extremities no cyanosis clubbing or edema, cap refill brisk Skin no rash Data 06/17/22 05:14 06/17/22 05:14 Micro: Microbiology 06/16/22 15:01 Gram Stain - Final Other Source A&P Assessment and plan (1) Abdominal pain: Patient presents with significant left-sided abdominal pain. A fluid collection was noted on CT. There is concern this represents a start of an abscess. Slight erythema is seen consistent with cellulitis.. During his last 3 ER visits white blood cell count has increased significantly, and the patient reports increasing pain. I am also concerned based on his appearance of chest x-ray and CAT scan that he may be developing pneumonia on the left. Blood cultures have been drawn Vancomycin has been initiated Continue Levaquin which was added secondary to the concern of concomitant pneumonia. Of interest, he apparently was also treated clinically for diverticulitis several weeks ago. He reports no imaging at that time and treatment was done through his primary care providers office. He reports no prior history of diverticuli. His white blood cell count continues to decrease. Blood cultures have been negative. Appreciate surgical consult. Radiology was consulted yesterday for ultrasound-guided aspiration of fluid. This yielded pus. Gram stain is positive for gram-positive organism. Culture in progress. Repeat CT scan done prior to this demonstrated no overall changes in area of inflammation. A transthoracic echocardiogram was obtained based on his past history of IV drug use, and cardiomyopathy in this patient with possible infection. This was normal MRSA PCR negative White blood cell count is decreasing Discussed with infectious disease. They will see patient. Recommend PICC placement. I will discuss with patient risks and benefits today. (2) Cardiomyopathy: Echocardiogram showed normal EF, no obvious valvular abnormalities Continue chronic home medicines Monitor for any fluid overload Plan Hypertension. Blood pressure medication adjusted for lower blood pressures. Norvasc discontinued. Metoprolol reduced. Multiple other medical problems as outlined in past medical history Full code currently SCDs for DVT prophylaxis. 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
[2022-06-17] MEDS: pantoprazole DR 40 mg Tablet PO (09:43)
[2022-06-17] MEDS: vancomycin 1,500 MG/300 ML PIGGYBACK 200 MG IV ×2 (09:43→20:14)
[2022-06-17] MEDS: colchicine 0.6 mg Tablet PO ×2 (09:43→17:35)
[2022-06-17] MEDS: hyDRALAzine 50 mg Tablet 100 MG PO ×3 (09:43→20:14)
[2022-06-17] MEDS: spironolactone 25 mg Tablet PO (09:43)
[2022-06-17] MEDS: heparin 5,000 unit/mL INJ 1 mL 5000 UNIT SUBCUT ×2 (09:44→20:36)
[2022-06-17] MEDS: levofloxacin-dextrose 5 % 750 MG/150 ML PREMIX 100 MG IV (13:50)
--- NOTE | 2022-06-17 17:36 | PM.CONSULT ---
Providers/Reason For Consult Consulting Physician/Specialty*: Jazmin Bobo MD/ Infectious Disease Reason for Consult*: left abdominal wall deep abscess Requesting Physician: Vasiliy Dickerson MD Attending Physician: Vasiliy Dickerson MD Primary Care Provider: Junie Cain NP History of Present Illness History of Present Illness Abdifatah Toscano is a 42 year old male who has been experiencing left chest wall discomfort going back over 3 to 4 months, more recently acutely worsened on June 14 when he presented to the emergency room with complaints of left abdominal wall discomfort, pain to palpation, and growing erythema warmth and tenderness over this area. He has also had associated leukocytosis. He denies any fevers. States that he was recently diagnosed with diverticulitis about 1 week prior to admission and received empiric antibiotics, however does not recall the name. We will confirm this with [facility]. It appears this was a clinical diagnosis. He underwent a CT of the abdomen and pelvis which showed inflammation and edema with fluid involving the left lateral abdominal wall musculature. Changes were noted to be extending beyond the rectus sheath. Small amount of fluid was also seen centered at the right ninth rib laterally. He underwent ultrasound-guided needle aspiration of the complex fluid collection, approximately 10 to 12 cc of pus was removed without difficulty. Aspirated collection measured 3.2 x 1.3 cm. Preliminary cultures thus far are showing coag positive Staphylococcus, likely to be staph aureus. Patient has a past medical history of IV drug use, however states that he has not used IV drugs in over 2 years. He has several tattoos all over his upper abdomen and back and upper forearm and arm, however all of these were placed several years ago. He has a left nipple piercing which was done over a year ago. States he has not noticed any discharge erythema or swelling around the site of this piercing. Review of past records showed he had presented to the emergency room in December of this year for a right hand swelling. He states this was right after a bee sting. He does not recall any trauma whatsoever to the abdominal or lateral chest wall. He has been started on antibiotic treatment with IV vancomycin and since initiation his white count has trended down reassuringly from greater than 25 down to 12 today. He has remained afebrile during this treatment course. Blood culture has been negative however he did receive antibiotics as outpatient therefore this needs to be interpreted carefully. No past history of endocarditis. No orthopedic hardware. No cardiac devices such as pacemakers AICDs etc. Review of Systems General: Reports: 10 or more systems reviewed and unremarkable except in HPI and below Const: Denies: fever(s), chills or body aches Eyes: Denies: change in vision, blurry vision or photophobia ENMT: Reports: hoarseness; Denies: throat pain, enlarged tonsils, odynophagia or nasal congestion Card: Denies: chest pain, palpitations, irregular heart rhythm, edema, swelling of feet/ankles, lightheadedness, pre-syncope, dyspnea on exertion or orthopnea Resp: Denies: dyspnea, productive cough, non-productive cough, wheezing, stridor, pain on inspiration, change in phlegm color, hemoptysis or chest congestion GI: Denies: abdominal pain, nausea, vomiting, hematemesis, coffee ground emesis, dysphagia, heartburn, diarrhea, constipation, GI cramping, change in stool character, hematochezia or melena : Denies: flank pain, dysuria, urinary frequency, urinary urgency, urinary hesitancy or hematuria Musc: Denies: neck pain, back pain, extremity pain, joint swelling, joint warmth or deformity Neuro: Denies: headache(s), numbness in extremities, weakness in extremities, sensory changes, difficulty walking, frequent falls, dizziness, vertigo, behavioral changes, Slurred speech present or seizure-like activity Psych: Denies: anxiety, depression, suicidal ideation or homicidal ideation Endo: Denies: polyuria, polydipsia, tired all the time, cold intolerance or hot flashes Adam/Lymph: Denies: easy bruising or easy bleeding Medications/Allergies Home Medications Medication Instructions Recorded Confirmed Last Taken Type albuterol sulfate 90 mcg/actuation 2 puff inhalation QID PRN Wheezing 11/24/20 06/14/22 06/16/21 Rx aerosol inhaler 30 days acetaminophen 500 mg tablet 1,000 - 2,000 mg PO Q6H PRN Pain 03/04/22 06/14/22 Unknown History ipratropium 0.5 mg-albuterol 3 mg 3 ml inhalation Q6H PRN Wheezing 03/04/22 06/14/22 Unknown History (2.5 mg base)/3 mL nebulization soln lisinopril 40 mg tablet 40 mg PO QAM 03/04/22 06/14/22 05/20/22 History spironolactone 25 mg tablet 25 mg PO BID 03/04/22 06/14/22 05/20/22 History colchicine 0.6 mg tablet 0.6 mg PO BID 05/20/22 06/14/22 05/20/22 History famotidine 40 mg tablet 40 mg PO BEDTIME 05/20/22 06/14/22 05/19/22 History furosemide 20 mg tablet 20 mg PO DAILY PRN Edema 05/20/22 06/14/22 05/20/22 History metoprolol succinate 100 mg 100 mg PO QAM 05/20/22 06/14/22 05/20/22 History tablet,extended release 24 hr metoprolol succinate 50 mg capsule 50 mg PO QPM 05/20/22 06/14/22 05/19/22 History sprinkle, ext. release 24 hr hydrocodone 5 mg-acetaminophen 325 1 tab PO Q6H PRN pain #14 tabs 06/12/22 06/14/22 Unknown Rx mg tablet ondansetron 4 mg disintegrating 4 mg PO Q6H PRN nausea and 06/12/22 06/14/22 Unknown Rx tablet vomiting #14 tabs amlodipine 10 mg tablet 10 mg PO DAILY 06/14/22 06/14/22 Unknown History hydralazine 100 mg tablet 100 mg PO TID 06/14/22 06/14/22 Unknown History indomethacin 50 mg capsule 50 mg PO TID PRN Pain 06/14/22 06/14/22 Unknown History metronidazole 500 mg tablet 500 mg PO TID 06/14/22 06/14/22 Unknown History pantoprazole 40 mg tablet,delayed 40 mg PO DAILY 06/14/22 06/14/22 Unknown History release Allergies Allergy/AdvReac Type Severity Reaction Status Date / Time aspirin Allergy ALGY-Swell Verified 06/14/22 14:39 Lip/Tongue/Throat codeine Allergy ALGY-Swell Verified 06/14/22 14:39 Lip/Tongue/Throat dapagliflozin [From [facility]] Allergy ADR-Vomitin Verified 06/14/22 14:39 g Iodinated Contrast Media Allergy ALGY-Difficulty Verified 06/14/22 14:39 Breathing Penicillins Allergy ADR-Itching Verified 06/14/22 14:39 sacubitril [From Entresto] Allergy ADR-Vomitin Verified 06/14/22 14:39 g valsartan [From Entresto] Allergy ADR-Vomitin Verified 06/14/22 14:39 g Current Medications Generic Name Dose Route Start Last Admin Trade Name Freq PRN Reason Stop Dose Admin Acetaminophen 650 mg 06/14/22 14:04 06/15/22 02:32 Acetaminophen 325 Mg Tablet PO 650 mg Q6H PRN Administration Mild/Mod Pain Or Temp >/= 101 Hydrocodone Bitart/Acetaminophen 1 tab 06/14/22 13:49 06/17/22 17:35 Hydrocodone-Acetaminophen 5-325 Mg Tablet PO 1 tab Q6H PRN Administration pain Albuterol/Ipratropium 3 ml 06/14/22 13:49 06/17/22 08:34 Ipratropium-Albuterol 3 Ml Neb INHALATION 3 ml Q6H PRN Administration Wheezing Benzonatate 200 mg 06/14/22 15:57 06/16/22 12:58 Benzonatate 100 Mg Capsule PO 200 mg TID PRN Administration COUGH Colchicine 0.6 mg 06/14/22 18:00 06/17/22 17:35 Colchicine 0.6 Mg Tablet PO 0.6 mg BID GARY Administration Guaifenesin 200 mg 06/17/22 00:26 06/17/22 14:29 Guaifenesin 100 Mg/5 Ml Udc 10 Ml PO 200 mg Q4H PRN Administration COUGH AND CONGESTION Heparin Sodium (Porcine) 5,000 unit 06/17/22 09:30 06/17/22 09:44 Heparin 5,000 Unit/Ml Inj 1 Ml SUBCUT 5,000 unit Q12H GARY Administration Hydralazine HCl 100 mg 06/14/22 15:00 06/17/22 14:29 Hydralazine 50 Mg Tablet PO 100 mg TID GARY Administration Levofloxacin/Dextrose 750 mg in 150 mls @ 100 mls/hr 06/14/22 14:00 06/17/22 13:50 Levaquin-D5w IV 100 mls/hr Q24H GARY Administration Protocol Vancomycin/PEG/NADA/Lysine/Water 1,500 mg in 300 mls @ 200 mls/hr 06/14/22 21:00 06/17/22 12:47 Vancocin IV Infused Q12H GARY Infusion Lisinopril 40 mg 06/15/22 06:00 06/17/22 06:20 Lisinopril 20 Mg Tablet PO Not Given QAM GARY Metoprolol Succinate 100 mg 06/15/22 06:00 06/17/22 06:10 Metoprolol Succinate Er (24 Hr) 100 Mg Tablet PO Not Given QAM GARY Morphine Sulfate 2 mg 06/14/22 12:30 06/16/22 23:19 Morphine 4 Mg/Ml Sdv 1 Ml IVP 2 mg Q4H PRN Administration SEVERE PAIN Ondansetron HCl 4 mg 06/14/22 12:30 06/16/22 16:56 Ondansetron 2 Mg/Ml Sdv 2 Ml IVP 4 mg Q6H PRN Administration NAUSEA AND VOMITING Pantoprazole Sodium 40 mg 06/15/22 09:00 06/17/22 09:[address] 40 Mg Tablet PO 40 mg DAILY GARY Administration Spironolactone 25 mg 06/16/22 09:00 06/17/22 09:43 Spironolactone 25 Mg Tablet PO 25 mg DAILY GARY Administration Trazodone HCl 50 mg 06/15/22 02:04 06/15/22 02:32 Trazodone 50 Mg Tablet PO 50 mg BEDTIME PRN Administration SLEEP PFSH Acute PFSH: Medical History CAD (coronary artery disease) Cardiomyopathy Reports nonischemic cardiomyopathy with EF 25 to 30% GERD (gastroesophageal reflux disease) Hypertension Surgical History S/P tendon repair Stented coronary artery Family History Other Hypertension Social History Smoking and tobacco status: former smoker Quit status (tobacco): has quit using tobacco Second hand smoke exposure: Yes Alcohol intake: former Vitals/I&O/Wt Last Vital Signs Temp 98.0 F 06/17/22 15:34 Pulse 75 06/17/22 15:34 Resp 16 06/17/22 15:34 BP 149/78 06/17/22 15:34 Pulse Ox 95 06/17/22 15:34 O2 Del Method 06/17/22 15:34 06/17/22 06/17/22 06/17/22 06:59 14:59 22:59 Intake Total 360 / 1590 780 / 780 Balance 360 / 1590 780 / 780 Physical Exam Narrative: General: No acute distress, AO x3 HEENT: PERRLA, pupils bilaterally equal and reactive, pallors not present Chest: Normal vesicular breath sounds, no added sounds, equal good air entry bilaterally CVS: S1-S2 regular, no murmurs, no tachycardia, no gallops, no rubs Abdomen: Soft, nontender, no organomegaly, bowel sounds present Neuro: No focal deficits, no facial deformity, AO x3, power 5/5 in all limbs Extremities: Tender to palpation over left sided abdominal wall over the area of lower ribs. States that tenderness is improved. No obvious discoloration or fluctuant swelling noted today. He has several tattoos all over his torso and arms. Left nipple piercing noted, no pus or surrounding gross cellulitis noted. Data 06/17/22 05:14 06/17/22 05:14 Other Labs: Radiology Impressions KUB X-Ray 06/14/22 07:08 IMPRESSION: No acute abnormality identified. Chest X-Ray 06/14/22 07:12 IMPRESSION: Interval development of complete lower lung opacities as above. Biopsy Ultrasound 06/16/22 00:00 IMPRESSION: 1. Uncomplicated aspiration of the complex fluid collection along the LEFT lower chest wall. Sent for culture and sensitivity. 2. Uncomplicated core biopsy soft tissue component surrounding the abscess along the LEFT lower chest wall. This specimen is sent for pathology. Abdomen/Pelvis CT 06/16/22 08:50 IMPRESSION: 1. Small LEFT pleural effusion with compressive atelectasis and infiltrates LEFT lower lobe. LEFT pleural effusion slightly increased from previous. 2. Trace RIGHT pleural fluid with subsegmental atelectasis RIGHT lower lobe. 3. LEFT lateral abdominal wall inflammatory changes and edema not significantly changed in appearance. This appears centered at the LEFT 9th rib laterally at the costochondral junction with a small amount of fluid or phlegmon at the costochondral junction. This is unchanged in appearance. No well-defined drainable abscess. Findings suspicious for infection. 4. No other remarkable interval changes. Notified Vasiliy Dickerson MD at 06/16/2022 12:00 PM. Needle Aspiration US 06/16/22 14:00 IMPRESSION: 1. Uncomplicated aspiration of the complex fluid collection along the LEFT lower chest wall. Sent for culture and sensitivity. 2. Uncomplicated core biopsy soft tissue component surrounding the abscess along the LEFT lower chest wall. This specimen is sent for pathology. Laboratory Results WBC 12.0 10^3/uL (4.0-10.0) H 06/17/22 05:14 RBC 3.98 10^6/uL (4.1-5.3) L 06/17/22 05:14 Hgb 11.2 g/dL (11.7-16.6) L 06/17/22 05:14 Hct 34.6 % (42.0-52.0) L 06/17/22 05:14 MCV 86.9 fl (80-94) 06/17/22 05:14 MCH 28.1 pg (28.0-34.0) 06/17/22 05:14 MCHC 32.4 g/dL (30.0-36.0) 06/17/22 05:14 RDW 13.5 % (12.1-15.1) 06/17/22 05:14 Plt Count 291 10^3/cmm (130-400) 06/17/22 05:14 MPV 9.4 fL (7.4-10.4) 06/17/22 05:14 Neut % (Auto) 75.1 % 06/17/22 05:14 Lymph % (Auto) 14.9 % 06/17/22 05:14 [place] % (Auto) 8.6 % 06/17/22 05:14 Eos % (Auto) 0.3 % 06/17/22 05:14 Baso % (Auto) 0.3 % 06/17/22 05:14 Neut # (Auto) 8.97 10^3/uL (1.8-7.7) H 06/17/22 05:14 Lymph # (Auto) 1.8 10^3/uL (0.8-4.8) 06/17/22 05:14 [place] # (Auto) 1.0 10^3/uL (0.2-0.9) H 06/17/22 05:14 Eos # (Auto) 0.0 10^3/uL (0.0-0.8) 06/17/22 05:14 Baso # (Auto) 0.0 10^3/uL (0.0-0.1) 06/17/22 05:14 Nucleated RBC % (auto) 0 % 06/17/22 05:14 Nucleated RBCs # 0.0 /100WBC 06/17/22 05:14 ESR 26 mm/hr (0-10) H 06/14/22 08:09 Sodium 132 mmol/L (136-145) L 06/17/22 05:14 Potassium 3.7 mmol/L (3.5-5.1) 06/17/22 05:14 Chloride 99 mmol/L (98-107) 06/17/22 05:14 Carbon Dioxide 26 mmol/L (22-29) 06/17/22 05:14 Anion Gap 10.7 (5-19) 06/17/22 05:14 BUN 15 mg/dL (6-20) 06/17/22 05:14 Creatinine 0.9 mg/dL (0.7-1.2) 06/17/22 05:14 GFR Calculation 91.7 mL/min (90-130) 06/17/22 05:14 Glucose 126 mg/dL (65-115) H 06/17/22 05:14 Calculated Osmolality 276 mOsm/kg (285-295) L 06/17/22 05:14 Lactic Acid 1.1 mmol/L (0.5-2.2) 06/14/22 08:09 Calcium 8.5 mg/dL (8.5-10.5) 06/17/22 05:14 Total Bilirubin 1.0 mg/dL (0.15-1.2) 06/14/22 08:09 AST 12 U/L (0-40) 06/14/22 08:09 ALT 18 U/L (0-41) 06/14/22 08:09 Alkaline Phosphatase 77 U/L (40-130) 06/14/22 08:09 C-Reactive Protein 148.9 mg/L (0.0-4.9) H 06/16/22 05:43 Total Protein 7.3 g/dL (6.6-8.7) 06/14/22 08:09 Albumin 3.7 g/dL (3.5-5.2) 06/14/22 08:09 Globulin 3.6 g/dL (1.3-4.6) 06/14/22 08:09 Lipase 51 U/L (13-60) 06/14/22 08:09 Urine Color Yellow (Yellow) 06/14/22 12:40 Urine Appearance Clear (CLEAR) 06/14/22 12:40 Urine pH 5 (5-7) 06/14/22 12:40 Ur Specific [place] 1.025 (1.005-1.030) 06/14/22 12:40 Urine Protein 1+ (Negative) H 06/14/22 12:40 Urine Glucose (UA) Norm (Normal) 06/14/22 12:40 Urine Ketones 1+ (Negative) H 06/14/22 12:40 Urine Blood Neg (Negative) 06/14/22 12:40 Urine Nitrate Negative (Negative) 06/14/22 12:40 Urine Bilirubin Neg (Negative) 06/14/22 12:40 Urine Urobilinogen 4 mg/dL (Negative) H 06/14/22 12:40 Ur Leukocyte Esterase Negative (Negative) 06/14/22 12:40 Urine RBC None /hpf (0-2) 06/14/22 12:40 Urine WBC None /hpf (0-5) 06/14/22 12:40 Ur Squamous Epith Cells None /hpf (0-5) 06/14/22 12:40 Amorphous Sediment Not Reportable 06/14/22 12:40 Urine Bacteria Trace /hpf (NONE) 06/14/22 12:40 Urine Mucus 4+ /hpf 06/14/22 12:40 Vancomycin Trough 11.3 ug/mL (10-15) 06/15/22 20:15 Micro: Microbiology 06/16/22 15:01 Gram Stain - Final Other Source Body Fluid Culture - Preliminary Coag positive Staphylococcus 06/15/2022: MRSA screen from nares: Negative 06/14/2022 blood culture: Negative to date. 06/15/2022. Normal LVEF and systolic function. Structurally normal tricuspid valve. No obvious aortic valve stenosis or regurgitation. Structurally normal mitral valve. A&P Assessment and plan (1) Abdominal wall cellulitis: (2) Costochondritis, acute: (3) Abscess: Plan 42-year-old male with subacute pain over the left anterior and lateral chest wall presenting to the hospital with signs and symptoms of cellulitis, found on CT to have underlying abscess. CT of the abdomen pelvis with inflammatory stranding over the left abdominal wall. This appears to be centered at the left ninth rib laterally at the costochondral junction with a small amount of fluid or phlegmon also noted at the costochondral junction. Overall findings are suggestive of osteomyelitis/discitis at the costochondral junction junction with extension into the abdominal wall. No clear precipitant obvious at this time. Patient denies any direct trauma. He does have a history of IV drug use, however states he has not used in over 2 years. Blood cultures are negative. Most often infection of the costochondral is from secondary seeding from the bloodstream. It is possible that patient's blood cultures may be negative as a result of recent treatment with antibiotics as outpatient for presumed diverticulitis. Fluid culture from abscess drainage thus far showing coag positive Staphylococcus, suspecting likely to be staph aureus. Will await final identification and susceptibility testing. Given the longstanding symptoms, identification of an aggressive organism like staph aureus, and an suspected route being a hematogenous spread, will aim for at least 4 to 6 weeks of IV antibiotics. Selection of antibiotic will depend on final susceptibilities. For now continue IV vancomycin. Place PICC line in anticipation of prolonged antibiotic course. Will follow Consult Attestations Medical Necessity Statement: per admitting Coding Level of Care Code Acute Bioinformatics Developer for Adilson Cedillo Diagnoses Abdominal wall cellulitis L03.311 Costochondritis, acute M94.0 Abscess L02.91
[2022-06-17] MEDS: ondansetron 2 mg/ML SDV 2 mL 4 MG IVP (17:41)
[2022-06-17] MEDS: morphine 4 mg/mL SDV 1 mL 2 MG IVP (21:53)
[2022-06-18] VITALS (9 sets, daily range): BP systolic 136–167; BP diastolic 72–101; PULSE 70–94; RESP 15–19; TEMP 36.4–36.8; O2SAT 92–96
[2022-06-18] MEDS: morphine 4 mg/mL SDV 1 mL 2 MG IVP ×2 (03:52→21:55)
[2022-06-18] MEDS: metoprolol succinate ER (24 HR) 100 mg Tablet PO (06:03)
[2022-06-18] MEDS: lisinopril 20 mg Tablet 40 MG PO (06:03)
--- NOTE | 2022-06-18 08:59 | PM.PN ---
Subjective Subjective: Patient reports pain is the same as yesterday. They are having some trouble getting his blood today. No nausea. No fevers. Is amenable to nursing facility stay, for IV antibiotics Medications: Reviewed: Yes Vitals/I&O/Wt Last Vital Signs Temp 97.6 F 06/18/22 07:46 Pulse 78 06/18/22 07:46 Resp 16 06/18/22 07:46 BP 167/101 06/18/22 07:46 Pulse Ox 95 06/18/22 07:46 O2 Del Method 06/18/22 07:46 06/17/22 06/18/22 06/18/22 22:59 06:59 14:59 Intake Total 750 / 1530 150 / 1680 Balance 750 / 1530 150 / 1680 Physical Exam Narrative: General exam, no distress Neck is supple no lymphadenopathy or thyromegaly Cardiovascular regular rate and rhythm. No murmur auscultated Lungs clear no wheezing or crackles Abdomen tenderness left abdominal wall, to lower portion of chest. No fluctuance. Positive bowel sounds. Edema is noted left flank. No erythema noted currently. Dressing in place Extremities no cyanosis clubbing or edema, cap refill brisk Skin no rash Data 06/17/22 05:14 06/17/22 05:14 Other Labs: Laboratories pending Micro: Microbiology 06/16/22 15:01 Gram Stain - Final Other Source Body Fluid Culture - Preliminary Coag positive Staphylococcus A&P Assessment and plan (1) Abdominal pain: Patient presents with significant left-sided abdominal pain. A fluid collection was noted on CT. There is concern this represents a start of an abscess. Slight erythema is seen consistent with cellulitis.. During his last 3 ER visits white blood cell count has increased significantly, and the patient reports increasing pain. I am also concerned based on his appearance of chest x-ray and CAT scan that he may be developing pneumonia on the left. Blood cultures have been drawn Vancomycin has been initiated Continue Levaquin which was added secondary to the concern of concomitant pneumonia. Of interest, he apparently was also treated clinically for diverticulitis several weeks ago. He reports no imaging at that time and treatment was done through his primary care providers office. He reports no prior history of diverticuli. His white blood cell count continues to decrease. Blood cultures have been negative. Appreciate surgical consult, infectious disease consult Radiology was consulted yesterday for ultrasound-guided aspiration of fluid. This yielded pus. Gram stain is positive for staph aureus. Sensitivities in progress. Culture in progress. Repeat CT scan done prior to this demonstrated no overall changes in area of inflammation. A transthoracic echocardiogram was obtained based on his past history of IV drug use, and cardiomyopathy in this patient with possible infection. This was normal MRSA PCR negative White blood cell count is decreasing Discussed with infectious disease. They recommend 4 to 6 weeks of IV antibiotics secondary to high likelihood of discitis/osteomyelitis at the costochondral junction with extension into the abdominal wall PICC has been ordered, and placement being sought. (2) Cardiomyopathy: Echocardiogram showed normal EF, no obvious valvular abnormalities Continue chronic home medicines Monitor for any fluid overload Plan Hypertension. Blood pressure medication adjusted for lower blood pressures. Norvasc will be readded as blood pressure is increasing Multiple other medical problems as outlined in past medical history Full code currently SCDs for DVT prophylaxis. Add heparin for DVT prophylaxis Attestations Medical Necessity Statement*: Needs continued hospitalization for IV antibiotics until PICC and placement and stability/response can be achieved. Coding Level of Care Code Acute Medical Reimbursement Manager for Adilson Cedillo Diagnoses Abdominal pain R10.9 Cardiomyopathy I42.9
[2022-06-18 09:38] LABS: Basophils # 0.1 10^3/uL (0.0-0.1); Basophils % 0.4 %; Eosinophils # 0.1 10^3/uL (0.0-0.8); Eosinophils % 0.4 %; Hematocrit 39.1 % (42.0-52.0); Hemoglobin 12.9 g/dL (11.7-16.6); Lymphocytes # 1.8 10^3/uL (0.8-4.8); Lymphocytes % 13.1 %; Mean Corpuscular Hemoglobin 28.2 pg (28.0-34.0); Mean Corpuscular Volume 85.6 fl (80-94); Monocytes # 0.9 10^3/uL (0.2-0.9); Neutrophils # 11.03 10^3/uL (1.8-7.7); Neutrophils % 78.3 %; Nucleated Red Blood Cells % 0 %; Platelet Count 322 10^3/cmm (130-400); Red Blood Count 4.57 10^6/uL (4.1-5.3); Red Cell Distribution Width 13.4 % (12.1-15.1); White Blood Count 14.1 10^3/uL (4.0-10.0)
[2022-06-18 09:53] LABS: Blood Urea Nitrogen 11 mg/dL (6-20); Carbon Dioxide 23 mmol/L (22-29); Chloride 98 mmol/L (98-107); Glomerular Filtration Rate 91.7 mL/min (90-130); Glucose 131 mg/dL (65-115); Osmolality Calculated 277 mOsm/kg (285-295); Sodium 133 mmol/L (136-145); Vancomycin Trough 6.9 ug/mL (10-15)
[2022-06-18 09:59] LABS: Anion Gap 16.2 (5-19); Potassium 4.2 mmol/L (3.5-5.1)
[2022-06-18] MEDS: pantoprazole DR 40 mg Tablet PO (10:01)
[2022-06-18] MEDS: colchicine 0.6 mg Tablet PO ×2 (10:01→18:53)
[2022-06-18] MEDS: spironolactone 25 mg Tablet PO (10:01)
[2022-06-18] MEDS: heparin 5,000 unit/mL INJ 1 mL 5000 UNIT SUBCUT ×2 (10:01→20:09)
[2022-06-18] MEDS: hyDRALAzine 50 mg Tablet 100 MG PO ×3 (10:01→20:09)
[2022-06-18] MEDS: HYDROcodone-acetaminophen 5-325 mg Tablet 1 TAB PO ×3 (10:12→20:09)
[2022-06-18] MEDS: amlodipine 5 mg Tablet PO (10:18)
[2022-06-18] MEDS: vancomycin 1,500 MG/300 ML PIGGYBACK 200 MG IV ×2 (11:35→20:09)
[2022-06-18] MEDS: levofloxacin-dextrose 5 % 750 MG/150 ML PREMIX 100 MG IV (14:00)
[2022-06-19] VITALS: BP 142/82; PULSE 69; RESP 19; TEMP 36.5; O2SAT 96
[2022-06-19] MEDS: vancomycin 1,500 MG/300 ML PIGGYBACK 200 MG IV ×3 (02:31→19:38)
--- NOTE | 2022-06-19 02:32 | PC.NURSE ---
Patient states that he does not need any pain medication at this time.Patient asked about his pain and states It's doing pretty good.
[2022-06-19 04:00] VITALS: BP 177/84; PULSE 77; RESP 19; TEMP 36.6; O2SAT 95
[2022-06-19] MEDS: lisinopril 20 mg Tablet 40 MG PO (04:22)
[2022-06-19] MEDS: HYDROcodone-acetaminophen 5-325 mg Tablet 1 TAB PO ×3 (04:25→17:42)
[2022-06-19] MEDS: metoprolol succinate ER (24 HR) 100 mg Tablet PO (04:26)
[2022-06-19 05:24] LABS: Basophils # 0.1 10^3/uL (0.0-0.1); Basophils % 0.7 %; Eosinophils # 0.1 10^3/uL (0.0-0.8); Hematocrit 39.4 % (42.0-52.0); Hemoglobin 12.9 g/dL (11.7-16.6); Lymphocytes # 2.3 10^3/uL (0.8-4.8); Lymphocytes % 17.2 %; Mean Corpuscular HGB Conc 32.7 g/dL (30.0-36.0); Mean Corpuscular Hemoglobin 27.9 pg (28.0-34.0); Mean Corpuscular Volume 85.3 fl (80-94); Mean Platelet Volume 9.2 fL (7.4-10.4); Monocytes # 0.9 10^3/uL (0.2-0.9); Neutrophils % 70.3 %; Nucleated Red Blood Cells % 0 %; Platelet Count 382 10^3/cmm (130-400); Red Blood Count 4.62 10^6/uL (4.1-5.3); Red Cell Distribution Width 13.2 % (12.1-15.1); White Blood Count 13.5 10^3/uL (4.0-10.0)
[2022-06-19 05:47] LABS: C Reactive Protein 50.8 mg/L (0.0-4.9)
[2022-06-19 08:00] VITALS: BP 162/91; PULSE 78; RESP 16; TEMP 36.4; O2SAT 95; O2SAT 98
[2022-06-19] MEDS: pantoprazole DR 40 mg Tablet PO (10:07)
[2022-06-19] MEDS: spironolactone 25 mg Tablet PO (10:07)
[2022-06-19] MEDS: amlodipine 5 mg Tablet PO (10:07)
[2022-06-19] MEDS: heparin 5,000 unit/mL INJ 1 mL 5000 UNIT SUBCUT ×2 (10:07→20:53)
[2022-06-19] MEDS: colchicine 0.6 mg Tablet PO ×2 (10:07→17:42)
[2022-06-19] MEDS: hyDRALAzine 50 mg Tablet 100 MG PO ×3 (10:07→20:54)
[2022-06-19 10:47] LABS: Vancomycin Trough 15.3 ug/mL (10-15)
--- NOTE | 2022-06-19 11:27 | PC.SOCIAL ---
IMM update IMM updated with patient. Verbalized an understanding. Copy Pg 2 provided. Initialled, dated, timed, and placed in chart.
[2022-06-19 12:00] VITALS: BP 161/83; PULSE 76; RESP 17; TEMP 36.6; O2SAT 96
[2022-06-19] MEDS: levofloxacin-dextrose 5 % 750 MG/150 ML PREMIX 100 MG IV (14:39)
[2022-06-19 16:00] VITALS: BP 159/95; PULSE 84; RESP 16; TEMP 36.7; O2SAT 96
--- NOTE | 2022-06-19 19:04 | P.PN_ITS ---
Subjective Subjective: Patient was seen and examined this morning no acute events overnight has been afebrile. Abscess culture has shown: MSSA: Medications: Medication Review Details: Generic Name Dose Route Start Last Admin Trade Name Freq PRN Reason Stop Dose Admin Acetaminophen 650 mg 06/14/22 14:04 06/15/22 02:32 Acetaminophen 32 5 Mg Tablet PO 650 mg Q6H PRN Administration Mild/Mod Pain Or Temp >/= 101 Hydrocodone Bitart /Acetaminophen 1 tab 06/14/22 13:49 06/19/22 17:42 Hydrocodone-Acet aminophen 5-325 Mg Tablet PO 1 tab Q6H PRN Administration pain Albuterol/Ipratrop ium 3 ml 06/14/22 13:49 06/17/22 08:34 Ipratropium-Albu terol 3 Ml Neb INHALATION 3 ml Q6H PRN Administration Wheezing Amlodipine Besylat e 5 mg 06/18/22 09:05 06/19/22 10:07 Amlodipine 5 Mg Tablet PO 5 mg DAILY GARY Administration Benzonatate 200 mg 06/14/22 15:57 06/16/22 12:58 Benzonatate 100 Mg Capsule PO 200 mg TID PRN Administration COUGH Colchicine 0.6 mg 06/14/22 18:00 06/19/22 17:42 Colchicine 0.6 M g Tablet PO 0.6 mg BID GARY Administration Guaifenesin 200 mg 06/17/22 00:26 06/17/22 14:29 Guaifenesin 100 Mg/5 Ml Udc 10 Ml PO 200 mg Q4H PRN Administration COUGH AND CONGEST ION Heparin Sodium (Po rcine) 5,000 unit 06/17/22 09:30 06/19/22 10:07 Heparin 5,000 Un it/Ml Inj 1 Ml SUBCUT 5,000 unit Q12H GARY Administration Hydralazine HCl 100 mg 06/14/22 15:00 06/19/22 15:06 Hydralazine 50 M g Tablet PO 100 mg TID GARY Administration Levofloxacin/Dextr ose 750 mg in 150 mls @ 100 mls/hr 06/14/22 14:00 06/19/22 16:30 Levaquin-D5w IV Infused Q24H GARY Infusion Protocol Vancomycin/PEG/NAD A/Lysine/Water 1,500 mg in 300 m ls @ 200 mls/hr 06/18/22 11:30 06/19/22 14:38 Vancocin IV Infused Q8H GARY Infusion Lisinopril 40 mg 06/15/22 06:00 06/19/22 04:22 Lisinopril 20 Mg Tablet PO 40 mg QAM GARY Administration Metoprolol Succina te 100 mg 06/15/22 06:00 06/19/22 04:26 Metoprolol Succi saeid Er (24 Hr) 10 0 Mg Tablet PO 100 mg QAM GARY Administration Morphine Sulfate 2 mg 06/14/22 12:30 06/18/22 21:55 Morphine 4 Mg/Ml Sdv 1 Ml IVP 2 mg Q4H PRN Administration SEVERE PAIN Ondansetron HCl 4 mg 06/14/22 12:30 06/17/22 17:41 Ondansetron 2 Mg /Ml Sdv 2 Ml IVP 4 mg Q6H PRN Administration NAUSEA AND VOMITI NG Pantoprazole Sodiu m 40 mg 06/15/22 09:00 06/19/22 10:[address] 40 Mg Tablet PO 40 mg DAILY GARY Administration Spironolactone 25 mg 06/16/22 09:00 06/19/22 10:07 Spironolactone 2 5 Mg Tablet PO 25 mg DAILY GARY Administration Trazodone HCl 50 mg 06/15/22 02:04 06/15/22 02:32 Trazodone 50 Mg Tablet PO 50 mg BEDTIME PRN Administration SLEEP Vitals/I&O/Wt Last Vital Signs Temp 98.1 F 06/19/22 16:00 Pulse 84 06/19/22 16:00 Resp 16 06/19/22 16:00 BP 159/95 06/19/22 16:00 Pulse Ox 96 06/19/22 16:00 O2 Del Method 06/19/22 16:00 06/19/22 06/19/22 06/19/22 06:59 14:59 22:59 Intake Total 940 / 2530 780 / 780 270 / 1050 Balance 940 / 2530 780 / 780 270 / 1050 Physical Exam Const: COMMON NORMALS: patient oriented x3 Resp: COMMON NORMALS: normal respiratory effort, No retractions, No use of acc essory muscles and clear to auscultation bilaterally EFFORT & INSPECTION: Yes symmetric chest movement AUSCULTATION: clear to auscultation bilaterally Cardio: COMMON NORMALS: regular rate, regular rhythm, S1 normal heart sound present, S2 normal heart sound present, No gallops present (Cardio), No murmurs present (Cardio), No rub (Cardio) and Peripheral pulses 2+ throughout RATE: regular rate RHYTHM: regular rhythm HEART SOUNDS: S1 normal heart sound present and S2 normal heart sound present PERIPHERAL PULSES: Peripheral pulses 2+ throughout GI: AUSCULTATION: Yes normoactive bowel sounds RECTAL EXAM: Yes deferred OTHER: Left abdominal wall tenderness. Normoactive bowel sounds Extremity: COMMON NORMALS: no clubbing, cyanosis or edema and no pedal edema Neuro: COMMON NORMALS: patient oriented x3 Data 06/19/22 05:10 06/18/22 09:28 Micro: Microbiology 06/14/22 10:40 Blood Culture - Final Blood NO GROWTH AFTER 5 DAYS 06/14/22 10:34 Blood Culture - Final Blood NO GROWTH AFTER 5 DAYS 06/16/22 15:01 Gram Stain - Final Other Source Body Fluid Culture - Final Staphylococcus aureus A&P Assessment and plan (1) Abscess: Patient presents with significant left-sided abdominal pain.? A fluid collection was noted on CT.? There is concern this represents? a start of an abscess.? Slight erythema is seen consistent with cellulitis..? During his last 3 ER visits white blood cell count has increased significantly, and the patient reports increasing pain. I am also concerned based on his appearance of chest x-ray and CAT scan that he may be developing pneumonia on the left. Blood cultures have been drawn Vancomycin has been initiated Continue Levaquin which was added secondary to the concern of concomitant pneumonia.? Of interest, he apparently was also treated clinically for diverticulitis several weeks ago.? He reports no imaging at that time and treatment was done through his primary care providers office.? He reports no prior history of diverticuli. His white blood cell count continues to decrease.? Blood cultures have been negative. Appreciate surgical consult, infectious disease consult Radiology was consulted yesterday for ultrasound-guided aspiration of fluid.? This yielded pus.? Gram stain is positive for staph aureus.? Sensitivities in progress.? Culture in progress.? Repeat CT scan done prior to this demonstrated no overall changes in area of inflammation. A transthoracic echocardiogram was obtained based on his past history of IV drug use, and cardiomyopathy in this patient with possible infection.? This was normal MRSA PCR negative White blood cell count is decreasing Discussed with infectious disease.? They recommend 4 to 6 weeks of IV antibio tics secondary to high likelihood of discitis/osteomyelitis at the costochondral junction with extension into the abdominal wall PICC has been ordered, and placement being sought. (2) Abdominal wall cellulitis: (3) Costochondritis, acute: Attestations Medical Necessity Statement*: Patient needs to be in hospital for IV antibiotics. 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
[2022-06-19 19:07] VITALS: BP 165/82; PULSE 83; RESP 18; TEMP 36.4; O2SAT 97
[2022-06-19] MEDS: acetaminophen 325 mg Tablet 650 MG PO (20:54)
[2022-06-20] VITALS: BP 180/108; PULSE 80; RESP 22; TEMP 36.4; O2SAT 95
[2022-06-20] MEDS: HYDROcodone-acetaminophen 5-325 mg Tablet 1 TAB PO ×3 (01:23→22:29)
[2022-06-20] MEDS: vancomycin 1,500 MG/300 ML PIGGYBACK 200 MG IV (03:21)
[2022-06-20 03:56] VITALS: BP 133/76; PULSE 80; RESP 20; TEMP 36.7; O2SAT 97
[2022-06-20] MEDS: lisinopril 20 mg Tablet 40 MG PO (05:00)
[2022-06-20] MEDS: metoprolol succinate ER (24 HR) 100 mg Tablet PO (05:01)
[2022-06-20 08:00] VITALS: BP 168/104; PULSE 68; PULSE 75; RESP 15; RESP 16; TEMP 36.7; O2SAT 97; O2SAT 98
[2022-06-20] MEDS: amlodipine 5 mg Tablet PO (08:47)
[2022-06-20] MEDS: pantoprazole DR 40 mg Tablet PO (08:47)
[2022-06-20] MEDS: spironolactone 25 mg Tablet PO (08:47)
[2022-06-20] MEDS: hyDRALAzine 50 mg Tablet 100 MG PO ×3 (08:47→21:02)
[2022-06-20] MEDS: heparin 5,000 unit/mL INJ 1 mL 5000 UNIT SUBCUT ×2 (08:48→21:03)
[2022-06-20] MEDS: colchicine 0.6 mg Tablet PO ×2 (09:05→18:18)
[2022-06-20 12:00] VITALS: BP 137/92; PULSE 77; RESP 15; TEMP 36.7; O2SAT 96
[2022-06-20] MEDS: ceFAZolin 2,000 MG in sodium chloride 0.9% (plus) 50 ML 100 MG IV ×2 (13:00→18:18)
[2022-06-20] MEDS: ondansetron 2 mg/ML SDV 2 mL 4 MG IVP (13:03)
[2022-06-20] MEDS: levofloxacin-dextrose 5 % 750 MG/150 ML PREMIX 100 MG IV (14:41)
[2022-06-20 15:47] VITALS: BP 123/72; PULSE 78; RESP 16; TEMP 36.7; O2SAT 93
--- NOTE | 2022-06-20 17:01 | P.PN_ITS ---
Subjective Subjective: Patient was seen and examined this morning no acute events overnight has been afebrile. Abscess culture has shown: MSSA: Antibiotic has been switched to cefazolin 2 g IV every 8. Current plan is to give IV antibiotics for 4 weeks. Follow ID as an outpatient Medications: Reviewed: Yes Medication Review Details: Generic Name Dose Route Start Last Admin Trade Name Freq PRN Reason Stop Dose Admin Acetaminophen 650 mg 06/14/22 14:04 06/19/22 20:54 Acetaminophen 32 5 Mg Tablet PO 650 mg Q6H PRN Administration Mild/Mod Pain Or Temp >/= 101 Hydrocodone Bitart /Acetaminophen 1 tab 06/14/22 13:49 06/20/22 13:02 Hydrocodone-Acet aminophen 5-325 Mg Tablet PO 1 tab Q6H PRN Administration pain Albuterol/Ipratrop ium 3 ml 06/14/22 13:49 06/17/22 08:34 Ipratropium-Albu terol 3 Ml Neb INHALATION 3 ml Q6H PRN Administration Wheezing Amlodipine Besylat e 5 mg 06/18/22 09:05 06/20/22 08:47 Amlodipine 5 Mg Tablet PO 5 mg DAILY GARY Administration Benzonatate 200 mg 06/14/22 15:57 06/16/22 12:58 Benzonatate 100 Mg Capsule PO 200 mg TID PRN Administration COUGH Colchicine 0.6 mg 06/14/22 18:00 06/20/22 09:05 Colchicine 0.6 M g Tablet PO 0.6 mg BID GARY Administration Guaifenesin 200 mg 06/17/22 00:26 06/17/22 14:29 Guaifenesin 100 Mg/5 Ml Udc 10 Ml PO 200 mg Q4H PRN Administration COUGH AND CONGEST ION Heparin Sodium (Po rcine) 5,000 unit 06/17/22 09:30 06/20/22 08:48 Heparin 5,000 Un it/Ml Inj 1 Ml SUBCUT 5,000 unit Q12H GARY Administration Hydralazine HCl 100 mg 06/14/22 15:00 06/20/22 16:31 Hydralazine 50 M g Tablet PO 100 mg TID GARY Administration Levofloxacin/Dextr ose 750 mg in 150 mls @ 100 mls/hr 06/14/22 14:00 06/20/22 16:30 Levaquin-D5w IV Infused Q24H GARY Infusion Protocol Cefazolin Sodium 2 ,000 mg/ 50 mls @ 100 mls/ hr 06/20/22 11:00 06/20/22 14:06 Sodium Chloride IV Infused Q8H GARY Infusion Protocol Lisinopril 40 mg 06/15/22 06:00 06/20/22 05:00 Lisinopril 20 Mg Tablet PO 40 mg QAM GARY Administration Metoprolol Succina te 100 mg 06/15/22 06:00 06/20/22 05:01 Metoprolol Succi saeid Er (24 Hr) 10 0 Mg Tablet PO 100 mg QAM GARY Administration Morphine Sulfate 2 mg 06/14/22 12:30 06/18/22 21:55 Morphine 4 Mg/Ml Sdv 1 Ml IVP 2 mg Q4H PRN Administration SEVERE PAIN Ondansetron HCl 4 mg 06/14/22 12:30 06/20/22 13:03 Ondansetron 2 Mg /Ml Sdv 2 Ml IVP 4 mg Q6H PRN Administration NAUSEA AND VOMITI NG Pantoprazole Sodiu m 40 mg 06/15/22 09:00 06/20/22 08:[address] 40 Mg Tablet PO 40 mg DAILY GARY Administration Spironolactone 25 mg 06/16/22 09:00 06/20/22 08:47 Spironolactone 2 5 Mg Tablet PO 25 mg DAILY GARY Administration Trazodone HCl 50 mg 06/15/22 02:04 06/15/22 02:32 Trazodone 50 Mg Tablet PO 50 mg BEDTIME PRN Administration SLEEP Vitals/I&O/Wt Last Vital Signs Temp 98.0 F 06/20/22 15:47 Pulse 78 06/20/22 15:47 Resp 16 06/20/22 15:47 BP 123/72 06/20/22 15:47 Pulse Ox 93 06/20/22 15:47 O2 Del Method 06/20/22 15:47 06/20/22 06/20/22 06/20/22 06:59 14:59 22:59 Intake Total 300 / 1650 650 / 650 150 / 800 Balance 300 / 1650 650 / 650 150 / 800 Physical Exam Const: COMMON NORMALS: patient oriented x3 HENMT: COMMON NORMALS: normocephalic, atraumatic, hearing grossly normal bilaterally and external ears normal HEAD & SCALP: normocephalic and atraumatic EXTERNAL EAR: Yes external ears normal Eye: COMMON NORMALS: no scleral icterus GENERAL EYE: appearance normal, both eyes and all related structures Chest: COMMONS NORMALS: normal inspection of the chest and normal palpation of entire chest wall CHEST: Yes Symmetrical chest wall rise Resp: COMMON NORMALS: normal respiratory effort, No retractions, No use of accessory muscles and clear to auscultation bilaterally EFFORT & INSPECTION: Yes symmetric chest movement AUSCULTATION: clear to auscultation bilaterally Cardio: COMMON NORMALS: regular rate, regular rhythm, S1 normal heart sound present, S2 normal heart sound present, No gallops present (Cardio), No murmurs present (Cardio), No rub (Cardio) and Peripheral pulses 2+ throughout RATE: regular rate RHYTHM: regular rhythm HEART SOUNDS: S1 normal heart sound present and S2 normal heart sound present PERIPHERAL PULSES: Peripheral pulses 2+ throughout GI: COMMON NORMALS: Normal to inspection, nondistended, normoactive bowel sounds present, Soft to palpation, non-tender, No hepatosplenomegaly present and no masses AUSCULTATION: Yes normoactive bowel sounds PALPATION: Yes Soft to palpation and Yes No hepatosplenomegaly present RECTAL EXAM: Yes deferred OTHER: Left abdominal wall tenderness. Normoactive bowel sounds Extremity: COMMON NORMALS: no clubbing, cyanosis or edema and no pedal edema Neuro: COMMON NORMALS: patient oriented x3 Data 06/19/22 05:10 06/18/22 09:28 A&P Assessment and plan (1) Abscess: Patient presents with significant left-sided abdominal pain.? A fluid collection was noted on CT.? There is concern this represents? a start of an abscess.? Slight erythema is seen consistent with cellulitis..? During his last 3 ER visits white blood cell count has increased significantly, and the patient reports increasing pain. I am also concerned based on his appearance of chest x-ray and CAT scan that he may be developing pneumonia on the left. Blood cultures have been drawn Vancomycin has been initiated Continue Levaquin which was added secondary to the concern of concomitant pneumonia.? Of interest, he apparently was also treated clinically for diverticulitis several weeks ago.? He reports no imaging at that time and treatment was done through his primary care providers office.? He reports no prior history of diverticuli. His white blood cell count continues to decrease.? Blood cultures have been negative. Appreciate surgical consult, infectious disease consult Radiology was consulted yesterday for ultrasound-guided aspiration of fluid.? This yielded pus.? Gram stain is positive for staph aureus.? Sensitivities in progress.? Culture in progress.? Repeat CT scan done prior to this demonstrated no overall changes in area of inflammation. A transthoracic echocardiogram was obtained based on his past history of IV drug use, and cardiomyopathy in this patient with possible infection.? This was normal MRSA PCR negative White blood cell count is decreasing Discussed with infectious disease.? They recommend 4 to 6 weeks of IV ant ibiotics secondary to high likelihood of discitis/osteomyelitis at the costochondral junction with extension into the abdominal wall PICC has been ordered, and placement being sought. (2) Abdominal wall cellulitis: (3) Costochondritis, acute: Attestations Medical Necessity Statement*: Patient is in the hospital for IV antibiotics. 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
[2022-06-20] MEDS: acetaminophen 325 mg Tablet 650 MG PO (18:27)
[2022-06-20 19:50] VITALS: BP 128/68; PULSE 80; RESP 18; TEMP 36.7; O2SAT 94
[2022-06-21] VITALS (8 sets, daily range): BP systolic 118–152; BP diastolic 75–91; PULSE 73–91; RESP 16–19; TEMP 36.3–36.8; O2SAT 94–96
[2022-06-21] MEDS: ceFAZolin 2,000 MG in sodium chloride 0.9% (plus) 50 ML 100 MG IV ×3 (02:08→19:23)
[2022-06-21] MEDS: metoprolol succinate ER (24 HR) 100 mg Tablet PO (05:19)
[2022-06-21] MEDS: lisinopril 20 mg Tablet 40 MG PO (05:19)
--- NOTE | 2022-06-21 07:30 | PC.NURSE ---
06/20/22 0848 heparin given in right lower abdominal quad
--- NOTE | 2022-06-21 09:17 | PC.SOCIAL ---
IMM update IMM updated with patient and . Verbalized an understanding. Copy Pg 2 provided. Initialled, dated, timed, and placed in chart.
[2022-06-21] MEDS: spironolactone 25 mg Tablet PO (09:46)
[2022-06-21] MEDS: hyDRALAzine 50 mg Tablet 100 MG PO ×3 (09:46→20:41)
[2022-06-21] MEDS: heparin 5,000 unit/mL INJ 1 mL 5000 UNIT SUBCUT ×2 (09:46→20:41)
[2022-06-21] MEDS: colchicine 0.6 mg Tablet PO ×2 (09:46→18:04)
[2022-06-21] MEDS: pantoprazole DR 40 mg Tablet PO (09:46)
[2022-06-21] MEDS: amlodipine 5 mg Tablet PO (09:46)
--- NOTE | 2022-06-21 10:16 | PM.DCS ---
Discharge Providers Date of Admission: 06/14/22 12:30 Date of Discharge: June 21, 2022 Attending Provider at Admission: Vasiliy Dickerson MD Attending Provider at Discharge: Santiago Patel MD Primary Care Provider: Junie Cain NP Diagnoses at Discharge Discharge Diagnosis (1) Abscess: Status: Acute (2) Abdominal wall cellulitis: Status: Acute (3) Costochondritis, acute: Status: Acute Reason for Visit Reason for Visit: chest pain Hospital Course Hospital Course 42-year-old male with past medical history of coronary artery disease hypertension,NICM, was admitted for the management of chest wall pain progressively worsening. During the hospital stay he was managed for Abdominal wall cellulitis with abscess as well as costochondritis. CT abdomen and pelvis showed: LEFT lateral abdominal wall inflammatory changes and edema not significantly changed in appearance. This appears centered at the LEFT 9th rib laterally at the costochondral junction with a small amount of fluid or phlegmon at the costochondral junction. This is unchanged in appearance. No well-defined drainable abscess. Patient underwent ultrasound-Uncomplicated aspiration of the complex fluid collection along the LEFT lower chest wall. Uncomplicated core biopsy soft tissue component surrounding the abscess along the LEFT lower chest wall. Abscess fluid culture: Has grown MSSA, patient was kept on vancomycin during the hospital stay, and was later switched to cefazolin 2 g IV every 8, he was discharged on IV antibiotics for 4 weeks.PICC line was placed. He will follow ID as outpatient. Pathology report: has ruled out malignancy. Pathology report showed myositis and panniculitis with abscess contents. Blood culture negative, 2D echo: Technically difficult study: Normal left ventricular cavity size and systolic function.? ?Left ventricular ejection fraction is estimated at 60 %.? No ?regional wall motion abnormality.? Normal diastolic function. ?Normal right ventricular size and systolic function. Mitral valve is structurally normal, aortic valve not well visualized, trace TR, pulmonary valves not well visualized, no PS. Overall patient responded well to above medical management and was discharged in stable condition to home. Physical Exam Const: COMMON NORMALS: patient oriented x3 HENMT: COMMON NORMALS: normocephalic, atraumatic, hearing grossly normal bilaterally and external ears normal HEAD & SCALP: normocephalic and atraumatic EXTERNAL EAR: Yes external ears normal Eye: COMMON NORMALS: no scleral icterus GENERAL EYE: appearance normal, both eyes and all related structures Chest: COMMONS NORMALS: normal inspection of the chest and normal palpation of entire chest wall CHEST: Yes Symmetrical chest wall rise Resp: COMMON NORMALS: normal respiratory effort, No retractions, No use of accessory muscles and clear to auscultation bilaterally EFFORT & INSPECTION: Yes symmetric chest movement AUSCULTATION: clear to auscultation bilaterally Cardio: COMMON NORMALS: regular rate, regular rhythm, S1 normal heart sound present, S2 normal heart sound present, No gallops present (Cardio), No murmurs present (Cardio), No rub (Cardio) and Peripheral pulses 2+ throughout RATE: regular rate RHYTHM: regular rhythm HEART SOUNDS: S1 normal heart sound present and S2 normal heart sound present PERIPHERAL PULSES: Peripheral pulses 2+ throughout GI: COMMON NORMALS: Normal to inspection, nondistended, normoactive bowel sounds present, Soft to palpation, non-tender, No hepatosplenomegaly present and no masses AUSCULTATION: Yes normoactive bowel sounds PALPATION: Yes Soft to palpation and Yes No hepatosplenomegaly present RECTAL EXAM: Yes deferred OTHER: Left abdominal wall tenderness. Normoactive bowel sounds Extremity: COMMON NORMALS: no clubbing, cyanosis or edema and no pedal edema Neuro: COMMON NORMALS: patient oriented x3 Discharge Data Studies Completed and Pending Completed Studies During Hospitalization Category Date Time Status CT abdomen pelvis wo con [id number] Routine Cat Scan 06/16/22 08:[address] abdomen pelvis wo con [id number] Stat Cat Scan 06/14/22 08:58 Completed XR KUB portable [id number] Stat Exams 06/14/22 07:08 Completed XR chest 1V portable [id number] Stat Exams 06/14/22 07:12 Completed CV. echo wo/w contrast [id number] Routine Ultrasound 06/14/22 13:59 Completed US biopsy muscle Routine Ultrasound 06/16/22 Completed US guide [facility] asp a/c/h [id number] Routine Ultrasound 06/16/22 14:00 Completed Radiology Impressions KUB X-Ray 06/14/22 07:08 IMPRESSION: No acute abnormality identified. Chest X-Ray 06/14/22 07:12 IMPRESSION: Interval development of complete lower lung opacities as above. Biopsy Ultrasound 06/16/22 00:00 IMPRESSION: 1. Uncomplicated aspiration of the complex fluid collection along the LEFT lower chest wall. Sent for culture and sensitivity. 2. Uncomplicated core biopsy soft tissue component surrounding the abscess along the LEFT lower chest wall. This specimen is sent for pathology. Abdomen/Pelvis CT 06/16/22 08:50 IMPRESSION: 1. Small LEFT pleural effusion with compressive atelectasis and infiltrates LEFT lower lobe. LEFT pleural effusion slightly increased from previous. 2. Trace RIGHT pleural fluid with subsegmental atelectasis RIGHT lower lobe. 3. LEFT lateral abdominal wall inflammatory changes and edema not significantly changed in appearance. This appears centered at the LEFT 9th rib laterally at the costochondral junction with a small amount of fluid or phlegmon at the costochondral junction. This is unchanged in appearance. No well-defined drainable abscess. Findings suspicious for infection. 4. No other remarkable interval changes. Notified Vasiliy Dickerson MD at 06/16/2022 12:00 PM. Needle Aspiration US 06/16/22 14:00 IMPRESSION: 1. Uncomplicated aspiration of the complex fluid collection along the LEFT lower chest wall. Sent for culture and sensitivity. 2. Uncomplicated core biopsy soft tissue component surrounding the abscess along the LEFT lower chest wall. This specimen is sent for pathology. Laboratory Results WBC 13.5 10^3/uL (4.0-10.0) H 06/19/22 05:10 RBC 4.62 10^6/uL (4.1-5.3) 06/19/22 05:10 Hgb 12.9 g/dL (11.7-16.6) 06/19/22 05:10 Hct 39.4 % (42.0-52.0) L 06/19/22 05:10 MCV 85.3 fl (80-94) 06/19/22 05:10 MCH 27.9 pg (28.0-34.0) L 06/19/22 05:10 MCHC 32.7 g/dL (30.0-36.0) 06/19/22 05:10 RDW 13.2 % (12.1-15.1) 06/19/22 05:10 Plt Count 382 10^3/cmm (130-400) 06/19/22 05:10 MPV 9.2 fL (7.4-10.4) 06/19/22 05:10 Neut % (Auto) 70.3 % 06/19/22 05:10 Lymph % (Auto) 17.2 % 06/19/22 05:10 Blanco % (Auto) 7.0 % 06/19/22 05:10 Eos % (Auto) 1.0 % 06/19/22 05:10 Baso % (Auto) 0.7 % 06/19/22 05:10 Neut # (Auto) 9.50 10^3/uL (1.8-7.7) H 06/19/22 05:10 Lymph # (Auto) 2.3 10^3/uL (0.8-4.8) 06/19/22 05:10 Blanco # (Auto) 0.9 10^3/uL (0.2-0.9) 06/19/22 05:10 Eos # (Auto) 0.1 10^3/uL (0.0-0.8) 06/19/22 05:10 Baso # (Auto) 0.1 10^3/uL (0.0-0.1) 06/19/22 05:10 Nucleated RBC % (auto) 0 % 06/19/22 05:10 Nucleated RBCs # 0.0 /100WBC 06/19/22 05:10 ESR 26 mm/hr (0-10) H 06/14/22 08:09 Sodium 133 mmol/L (136-145) L 06/18/22 09:28 Potassium 4.2 mmol/L (3.5-5.1) 06/18/22 09:28 Chloride 98 mmol/L (98-107) 06/18/22 09:28 Carbon Dioxide 23 mmol/L (22-29) 06/18/22 09:28 Anion Gap 16.2 (5-19) 06/18/22 09:28 BUN 11 mg/dL (6-20) 06/18/22 09:28 Creatinine 0.9 mg/dL (0.7-1.2) 06/18/22 09:28 GFR Calculation 91.7 mL/min (90-130) 06/18/22 09:28 Glucose 131 mg/dL (65-115) H 06/18/22 09:28 Calculated Osmolality 277 mOsm/kg (285-295) L 06/18/22 09:28 Lactic Acid 1.1 mmol/L (0.5-2.2) 06/14/22 08:09 Calcium 9.0 mg/dL (8.5-10.5) 06/18/22 09:28 Total Bilirubin 1.0 mg/dL (0.15-1.2) 06/14/22 08:09 AST 12 U/L (0-40) 06/14/22 08:09 ALT 18 U/L (0-41) 06/14/22 08:09 Alkaline Phosphatase 77 U/L (40-130) 06/14/22 08:09 C-Reactive Protein 50.8 mg/L (0.0-4.9) H 06/19/22 05:10 Total Protein 7.3 g/dL (6.6-8.7) 06/14/22 08:09 Albumin 3.7 g/dL (3.5-5.2) 06/14/22 08:09 Globulin 3.6 g/dL (1.3-4.6) 06/14/22 08:09 Lipase 51 U/L (13-60) 06/14/22 08:09 Urine Color Yellow (Yellow) 06/14/22 12:40 Urine Appearance Clear (CLEAR) 06/14/22 12:40 Urine pH 5 (5-7) 06/14/22 12:40 Ur Specific Lowman 1.025 (1.005-1.030) 06/14/22 12:40 Urine Protein 1+ (Negative) H 06/14/22 12:40 Urine Glucose (UA) Norm (Normal) 06/14/22 12:40 Urine Ketones 1+ (Negative) H 06/14/22 12:40 Urine Blood Neg (Negative) 06/14/22 12:40 Urine Nitrate Negative (Negative) 06/14/22 12:40 Urine Bilirubin Neg (Negative) 06/14/22 12:40 Urine Urobilinogen 4 mg/dL (Negative) H 06/14/22 12:40 Ur Leukocyte Esterase Negative (Negative) 06/14/22 12:40 Urine RBC None /hpf (0-2) 06/14/22 12:40 Urine WBC None /hpf (0-5) 06/14/22 12:40 Ur Squamous Epith Cells None /hpf (0-5) 06/14/22 12:40 Amorphous Sediment Not Reportable 06/14/22 12:40 Urine Bacteria Trace /hpf (NONE) 06/14/22 12:40 Urine Mucus 4+ /hpf 06/14/22 12:40 Vancomycin Trough 15.3 ug/mL (10-15) H 06/19/22 10:18 Vitals Last Vital Signs Temp 98.2 F 06/21/22 07:56 Pulse 73 06/21/22 07:56 Resp 18 06/21/22 07:56 BP 144/82 06/21/22 07:56 Pulse Ox 96 06/21/22 07:56 O2 Del Method 06/21/22 07:56 Discharge Plan Discharge Patient Disposition: Xfer SNF Condition: Stable Prescriptions: New Percocet 5-325 mg tablet 1 tab PO Q6H PRN (Reason: pain) 14 Days Qty: 20 0RF cyclobenzaprine 5 mg tablet 5 mg PO TID PRN (Reason: muscle spasm) Qty: 20 0RF Continued albuterol sulfate 90 mcg/actuation HFA aerosol inhaler 2 puff INHALATION QID PRN (Reason: Wheezing) 30 Days 0RF metoprolol succinate 100 mg tablet extended release 24 hr 100 mg PO QAM furosemide 20 mg tablet 20 mg PO DAILY PRN (Reason: Edema) famotidine 40 mg tablet 40 mg PO BEDTIME colchicine 0.6 mg tablet 0.6 mg PO BID hydrocodone-acetaminophen 5-325 mg tablet 1 tab PO Q6H PRN (Reason: pain) Qty: 14 0RF ondansetron 4 mg tablet,disintegrating 4 mg PO Q6H PRN (Reason: nausea and vomiting) Qty: 14 0RF ipratropium-albuterol 0.5 mg-3 mg(2.5 mg base)/3 mL solution for nebulization 3 ml INHALATION Q6H PRN (Reason: Wheezing) acetaminophen 500 mg Tablet 1,000 - 2,000 mg PO Q6H PRN (Reason: Pain) spironolactone 25 mg tablet 25 mg PO BID lisinopril 40 mg tablet 40 mg PO QAM amlodipine 10 mg tablet 10 mg PO DAILY hydralazine 100 mg tablet 100 mg PO TID pantoprazole 40 mg tablet,delayed release (DR/EC) 40 mg PO DAILY indomethacin 50 mg capsule 50 mg PO TID PRN (Reason: Pain) Discontinued metoprolol succinate 50 mg capsule,sprinkle,ER 24hr 50 mg PO QPM metronidazole 500 mg tablet 500 mg PO TID Discharge Orders: Discharge Order (Routine); Ordered 06/21/22 Ordered By: Santiago Patel Referrals: [facility] [Outside] Junie Cain, HONORIO [Primary Care Provider] - Jazmin Bobo MD [Hospitalist] - 07/22/22 1:00 pm Patient Instructions: Opioid Safety Discharge Attestations Time Spent in Discharge Care*: greater than 30 min Quality Metrics Clinical Quality Measures [ No reported AMI, CVA or VTE this stay] Coding Level of Care Code Acute Chg FW DC note Exam Comprehensive Diagnoses Abscess L02.91 Abdominal wall cellulitis L03.311 Costochondritis, acute M94.0
--- NOTE | 2022-06-21 13:46 | XR_ITS ---
WS: [id number] EXAMINATION: XR chest 1V portable [id number] REASON FOR EXAM: PICC line placement COMPARISON: None available. ORDER DATE: 06/21/2022 1:46 PM TECHNIQUE: A single, portable frontal chest x-ray was obtained. X-RAY FINDINGS: FINDINGS: Compared to the previous examination of 06/14/2022, irregular linear opacities are seen in both lower lungs, predominating on the right. These abnormalities have the appearance of atelectasis with perhaps a slight increase on the right from previous and elevated right diaphragm. No definite pneumonitis. The chest is otherwise unchanged compared to previous study. Right-sided PICC line terminating at the cavoatrial junction in satisfactory position. No pleural effusions or pneumothorax. Cardiomediastinal silhouette is normal. No evidence for pulmonary edema. Soft tissue and osseous structures are unremarkable. XR/XR chest 1V portable [id number] IMPRESSION: Bibasal atelectasis as described. Right sided PICC line in satisfactory position at the cavoatrial junction.
[2022-06-21] MEDS: levofloxacin-dextrose 5 % 750 MG/150 ML PREMIX 100 MG IV (14:53)
[2022-06-21 15:19] LABS: SARS Covid-2 Antigen negative (Negative)
[2022-06-21] MEDS: HYDROcodone-acetaminophen 5-325 mg Tablet 1 TAB PO (19:22)
--- NOTE | 2022-06-21 20:43 | PC.NURSE ---
Transportation called and spoke to JEAN CLAUDE Preez Charge and stated they would be here in about 30-45 minutes and would call back with a closer ETA at approximately 2019. This nurse called [facility] to inform them of the update and to ask if the patient could still be accepted. The nurse stated, Okay .
--- NOTE | 2022-06-21 20:58 | PC.NURSE ---
This nurse received a call from Thomas with [employer] and stated he received a call from a lady with [employer] about the transportation ride. Thomas stated he had a ride sitting at the main entrance but no one was downstairs waiting. This nurse informed them the ETA was later than the actual arrival time but this nurse would get the patient ready and bring him downstairs immediately.
--- NOTE | 2022-06-21 21:02 | PC.NURSE ---
This nurse called [facility] and spoke to Jolie to inform them that patient's ride has already arrived and patient was on his way.
== END 2022-06-21 20:55 | disposition skilled nursing facility (03) | DRG 602 ==
LOC: ER 12:54 → MEDSURG 14:26
PROVIDERS: Admitting Provider Internal Medicine; Emergency Provider Family Medicine; PCP Nurse Practitioner Family; Visit Provider Internal Medicine
DX: L02.211 Cutaneous abscess of abdominal wall (principal); J18.9 Pneumonia, unspecified organism; I42.8 Other cardiomyopathies; B95.61 Methicillin susceptible Staphylococcus aureus infection as the cause of diseases classified elsewhere; L03.311 Cellulitis of abdominal wall; M60.9 Myositis, unspecified; M79.3 Panniculitis, unspecified; M94.0 Chondrocostal junction syndrome [Tietze]; I25.10 Atherosclerotic heart disease of native coronary artery without angina pectoris; Z95.5 Presence of coronary angioplasty implant and graft; I10 Essential (primary) hypertension; Z79.51 Long term (current) use of inhaled steroids; Z79.891 Long term (current) use of opiate analgesic; K21.9 Gastro-esophageal reflux disease without esophagitis; Z87.891 Personal history of nicotine dependence; Z88.5 Allergy status to narcotic agent; Z88.0 Allergy status to penicillin; Z88.6 Allergy status to analgesic agent; Z91.041 Radiographic dye allergy status
CPT/HCPCS: 10160; 20206; 36415; 36569; 71045; 74018; 74176; 74177; 76942; 80048; 80053; 80202; 81001; 83605; 83690; 85025; 85651; 86140; 87040; 87070; 87075; 87077; 87186; 87205; 87426; 87641; 88307; 93005; 93306; 94640; 96361; 96365; 96367; 96372; 96374; 96375; 96376; 99285; C8929; J0690; J1200; J1644; J1956; J2270; J2405; J2765; J2920; J3370; J7030; J7050; Q9956; Q9967

== ENCOUNTER 2022-07-07 10:41 | Outpatient (CLI) | payer MEDICARE, MEDICAID, SELFPAY ==
[2022-07-07 11:03] LABS: Basophils # 0.1 10^3/uL (0.0-0.1); Basophils % 0.5 %; Eosinophils # 0.4 10^3/uL (0.0-0.8); Eosinophils % 4.3 %; Hematocrit 43.9 % (42.0-52.0); Hemoglobin 14.4 g/dL (11.7-16.6); Lymphocytes # 3.4 10^3/uL (0.8-4.8); Mean Corpuscular HGB Conc 32.8 g/dL (30.0-36.0); Mean Corpuscular Hemoglobin 28.2 pg (28.0-34.0); Mean Corpuscular Volume 85.9 fl (80-94); Mean Platelet Volume 10.5 fL (7.4-10.4); Neutrophils # 4.51 10^3/uL (1.8-7.7); Neutrophils % 47.8 %; Nucleated Red Blood Cells % 0 %; Platelet Count 295 10^3/cmm (130-400); Red Blood Count 5.11 10^6/uL (4.1-5.3); Red Cell Distribution Width 13.2 % (12.1-15.1); White Blood Count 9.5 10^3/uL (4.0-10.0)
[2022-07-07 11:28] LABS: Alanine Aminotransferase 23 U/L (0-41); Albumin Level 4.2 g/dL (3.5-5.2); Alkaline Phosphatase 84 U/L (40-130); Anion Gap 13.5 (5-19); Aspartate Amino Transferase 15 U/L (0-40); Blood Urea Nitrogen 18 mg/dL (6-20); Calcium 9.3 mg/dL (8.5-10.5); Carbon Dioxide 29 mmol/L (22-29); Chloride 98 mmol/L (98-107); Globulin 2.7 g/dL (1.3-4.6); Glomerular Filtration Rate 81.2 mL/min (90-130); Glucose 86 mg/dL (65-115); Osmolality Calculated 283 mOsm/kg (285-295); Potassium 4.5 mmol/L (3.5-5.1); Sodium 136 mmol/L (136-145); Total Bilirubin 0.3 mg/dL (0.15-1.2); Total Protein 6.9 g/dL (6.6-8.7)
== END 2022-07-07 10:42 | disposition home or self-care (01) ==
PROVIDERS: PCP Nurse Practitioner Family; Visit Provider Student in an Organized Health Care Education/Training Program
DX: Z01.89 Encounter for other specified special examinations (principal)
CPT/HCPCS: 80053; 85025

== ENCOUNTER 2024-09-25 11:31 | Emergency (ER) | payer MEDICARE, SELFPAY ==
[2024-09-25 11:33] VITALS: BP 163/106; PULSE 95; RESP 20; TEMP 36.4; O2SAT 95
--- NOTE | 2024-09-25 11:42 | W.ED.WOUNDLC ---
HPI - Wound/Laceration General: Chief Complaint: Wound/Laceration Stated Complaint: cyst on neck Time Seen by Provider: 09/25/24 11:32 Source: patient and EMS Mode of arrival: EMS Limitations: no limitations History of Present Illness: 44-year-old male who states that states he had an abscess to his left posterior neck for the last 2 to 3 days. He states been causing pain especially when he moves his head. He denies any fevers rates his pain a 7 out of 10 denies any history of abscesses in the past. Associated symptoms: Denies chills, fever(s), nausea or vomiting Related Data Home Medications ?Medication ?Instructions ?Recorded ?Confirmed acetaminophen 500 mg tablet 1,000 - 2,000 mg PO Q6H PRN Pain 03/04/22 09/25/24 lisinopril 40 mg tablet 40 mg PO QAM 03/04/22 09/25/24 pantoprazole 40 mg tablet,delayed 40 mg PO DAILY 06/14/22 09/25/24 release azithromycin 250 mg tablet 250 mg PO DAILY 09/25/24 09/25/24 mometasone-formoterol HFA 200 1 inh inhalation DAILY 09/25/24 09/25/24 mcg-5 mcg/actuation aerosol inhaler (Dulera) sulfamethoxazole 800 1 tab PO BID 09/25/24 09/25/24 mg-trimethoprim 160 mg tablet Previous Rx's ?Medication ?Instructions ?Recorded albuterol sulfate 90 mcg/actuation 2 puff inhalation QID PRN Wheezing 11/24/20 aerosol inhaler 30 days hydrocodone 5 mg-acetaminophen 325 1 tab PO Q6H PRN pain #14 tabs 06/12/22 mg tablet Allergies Allergy/AdvReac Type Severity Reaction Status Date / Time aspirin Allergy ALGY-Swell Verified 06/14/22 14:39 Lip/Tongue/Throat codeine Allergy ALGY-Swell Verified 06/14/22 14:39 Lip/Tongue/Throat dapagliflozin (From Farxiga) Allergy ADR-Vomitin Verified 06/14/22 14:39 g Iodinated Contrast Media Allergy ALGY-Difficulty Verified 06/14/22 14:39 Breathing Penicillins Allergy ADR-Itching Verified 06/14/22 14:39 sacubitril (From Entresto) Allergy ADR-Vomitin Verified 06/14/22 14:39 g valsartan (From Entresto) Allergy ADR-Vomitin Verified 06/14/22 14:39 g Review of Systems Const: Denies: fever(s), chills, body aches or change in appetite ENMT: Denies: throat pain or dental pain Card: Denies: chest pain Resp: Denies: dyspnea GI: Denies: abdominal pain, nausea, vomiting or diarrhea Musc: Denies: neck pain or back pain Skin/Breast: Reports: erythema; Denies: rash Neuro: Denies: headache(s) PFSH ED PFSH: Medical History Abscess Costochondritis, acute Cardiomyopathy Reports nonischemic cardiomyopathy with EF 25 to 30% Abdominal wall cellulitis Hypertension CAD (coronary artery disease) GERD (gastroesophageal reflux disease) Surgical History Stented coronary artery S/P tendon repair Family History Other Hypertension Social History Smoking and tobacco/nicotine status: former use of tobacco/nicotine Quit status (tobacco/nicotine): has quit using Second hand smoke exposure: Yes Alcohol intake: former Substance/Drug Use: former Physical Exam Const: COMMON NORMALS: no acute distress, patient oriented x3 and healthy appearing HENMT: COMMON NORMALS: normocephalic and atraumatic HEAD & SCALP: normocephalic and atraumatic Eye: COMMON NORMALS: conjunctivae normal CONJUNCTIVA: Yes conjunctivae normal Neck/C-Spine: COMMON NORMALS: supple OTHER: Abscess noted to left posterior neck roughly 4 cm Chest: COMMONS NORMALS: normal inspection of the chest Resp: COMMON NORMALS: normal respiratory effort Cardio: COMMON NORMALS: regular rate RATE: regular rate Extremity: COMMON NORMALS: normal to inspection and full ROM Neuro: COMMON NORMALS: patient oriented x3, moves all extremities and no focal motor deficits Psych: COMMON NORMALS: mental status grossly normal, Normal thought process present and cooperative THOUGHT PROCESS: Normal thought process present Skin: COMMON NORMALS: no rashes or lesions noted and no wounds GENERAL SKIN EXAM: no rashes or lesions noted Procedures Abscess I/D Site: neck Side (if applicable): left Local Anesthetic: lidocaine 1% Amount of anesthesia used (mL): 10 Technique: incised with #11 blade Packing used?: iodoform Course Vital Signs: Vital signs: Vital Signs Temperature 97.5 F L 09/25/24 11:33 Pulse Rate 95 09/25/24 11:33 Respiratory Rate 20 H 09/25/24 11:33 Blood Pressure 163/106 09/25/24 11:33 Pulse Oximetry 95 09/25/24 11:33 Oxygen Delivery Me thod Room Air 09/25/24 11:33 MDM - Wound/Laceration Medical Decision Making Patient presents with abscess to the back of his neck was incised and drained here is stable for discharge continue his antibiotics follow-up with PCP return if worsening. Medical Records I reviewed the patient's medical records. No radiology studies performed this visit Discharge Plan Discharge Patient Disposition: Home Clinical Impression: Abscess Condition: Stable Prescriptions: No Action albuterol sulfate 90 mcg/actuation HFA aerosol inhaler 2 puff INHALATION QID PRN (Reason: Wheezing) 30 Days 0RF hydrocodone-acetaminophen 5-325 mg tablet 1 tab PO Q6H PRN (Reason: pain) Qty: 14 0RF azithromycin 250 mg tablet 250 mg PO DAILY sulfamethoxazole-trimethoprim 800-160 mg tablet 1 tab PO BID Dulera 200-5 mcg/actuation HFA aerosol inhaler 1 inh INHALATION DAILY acetaminophen 500 mg Tablet 1,000 - 2,000 mg PO Q6H PRN (Reason: Pain) lisinopril 40 mg tablet 40 mg PO QAM pantoprazole 40 mg tablet,delayed release (DR/EC) 40 mg PO DAILY Discharge Orders: Discharge ED (Routine); Ordered 09/25/24 Ordered By: Diana Perez Referrals: Junie Cain NP [Primary Care Provider] - Discharge Diet: Advance as tolerated Discharge Activity: Resume usual activity Patient Instructions: Abscess (ED) Print Language: Faroese Coding Level of Care Code ED Driver Wheelchair for Adilson Cedillo
[2024-09-25] MEDS: lidocaine 1% 10 ML INJ SUBCUT (12:07)
[2024-09-25 12:27] VITALS: BP 169/109; PULSE 87; O2SAT 96
--- NOTE | 2024-09-27 13:41 | PC.NURSE ---
Dr. Osuna notified of [facility] wound culture. Pt contacted via phone to ensure pt was taking Bactrim. Pt states he saw his pcp today was was prescribed Bactrim. Dr. Osuna notified.
== END 2024-09-25 12:28 | disposition home or self-care (01) ==
PROVIDERS: Emergency Provider Emergency Medicine; PCP Nurse Practitioner Family
DX: L02.11 Cutaneous abscess of neck (principal); Z87.891 Personal history of nicotine dependence; I25.10 Atherosclerotic heart disease of native coronary artery without angina pectoris; I10 Essential (primary) hypertension
CPT/HCPCS: 87070; 87077; 87186; 99282

== ENCOUNTER 2025-05-06 03:26 | Emergency (ER) | payer MEDICARE, SELFPAY ==
--- OUTSIDE RECORDS SUMMARY | 2025-05-06 03:30 | XMS_ITS | Clinical Summary ---
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 Active mometasone/formot steven (DULERA INHALATION) Take 2 Puffs by inhalation 2 times daily. Active spironolactone (ALDACTONE) 25 mg tablet Take 1 Tablet (25 mg) by mouth daily. 90 Tablet 1 5 Active aspirin (ECOTRIN EC) 81 mg Tablet, Delayed Release (E.C.) Take 1 Tablet (81 mg) by mouth daily. 90 Tablet 1 5 Active atorvastatin (LIPITOR) 40 mg tablet Take 1 Tablet (40 mg) by mouth daily at bedtime. 90 Tablet 1 5 Active empagliflozin (JARDIANCE) 10 mg tablet Take 1 Tablet (10 mg) by mouth daily in the morning. 90 Tablet 1 5 Active sacubitriL-valsar dunham (ENTRESTO) 49-51 mg Tablet Take 1 Tablet by mouth 2 times daily. 180 Tablet 1 5 Active bumetanide (BUMEX) 1 mg tablet Take 1 Tablet (1 mg) by mouth daily. 90 Tablet 1 Active albuterol (PROVENTIL,VENTOL IN) 2.5 mg /3 mL (0.083 %) Solution for Nebulization USE 1 VIAL IN NEBULIZER EVERY 6 HOURS NEEDED Active allopurinoL (ZYLOPRIM) 300 mg tablet Take 1 Tablet by mouth daily. Active ibuprofen (MOTRIN) 800 mg tablet Take 800 mg by mouth every 8 hours as needed for Pain. Active pantoprazole (PROTONIX) 40 mg Tablet, Delayed Release (E.C.) daily. Active potassium CHLORIDE (MICRO-K EXTENCAPS) 10 mEq Extended Release capsule Take 10 mEq by mouth daily. Active Active Problems Problem Noted Date Diagnosed Date Essential hypertension 2025 Obesity 2025 NEPTALI on CPAP 2025 Congestive heart failure 2025 Elevated troponin 2025 Chest pain 2025 Acute hypoxic respiratory failure 2025 Decompensated heart failure 2025 Acute on chronic combined sy stolic (congestive) and diastolic (congestive) heart failure 2025 Cardiomyopathy 01/06/2025 Ankle fracture, left 12/18/2012 DM (diabetes mellitus) 12/18/2012 Depressive disorder 12/18/2012 Chronic bronchitis 12/18/2012 Schizoaffective disorder 12/18/2012 Allergic rhinitis 12/18/2012 Migraine 09/10/2009 HTN (hypertension) 09/10/2009 Encounters Date Type Department Care Team Description 04/13/2025 Results Follow-Up [facility] Cardiology [facility] [address] [place] [phone] Bridgett Murphy NP ECHO LIMITED W CONTRAST AND WO DOPPLER AND COLOR 04/10/2025 9:00 AM CDT - 04/10/2025 11:59 PM CDT Hospital Encounter [facility] Echo [address] [place] [phone] Bridgett Murphy NP Discharge Disposition: Home or Self Care 03/22/2025 Orders Only [facility] Cardiac Rehabilitation Services [place] [address] [place] [phone] Chris Llanes MD 03/19/2025 12:39 PM CDT - 03/19/2025 11:59 PM CDT Hospital Encounter [facility] Respiratory Therapy Services [address] [place] [phone] Chris Llanes MD Marino Jr., Joseph T, MD Discharge Disposition: Home or Self Care 03/19/2025 External Device Data STL ABSTRACTION Provider, Abstract 03/13/2025 External Device Data STL ABSTRACTION Provider, Abstract 03/12/2025 External Device Data STL ABSTRACTION Provider, Abstract 03/12/2025 External Device Data STL ABSTRACTION Provider, Abstract 03/08/2025 Abstract [facility] HIM [address] [place] [phone] Provider, Abstract 03/05/2025 External Device Data STL ABSTRACTION Provider, Abstract 03/01/2025 Telephone [facility] Orthopedics - Orthopedic [facility] [address] [place] [phone] Garrison Hunt MD General; Question 02/18/2025 Results Follow-Up [facility] Cardiology [facility] [address] [place] [phone] Lexii Alexander, EMT-P CARDIAC EVENT MONITOR 02/12/2025 External Device Data STL ABSTRACTION Provider, Abstract 02/12/2025 External Device Data STL ABSTRACTION Provider, Abstract 02/12/2025 External Device Data STL ABSTRACTION Provider, Abstract 02/06/2025 2:30 PM CDT Office Visit [facility] [address] [place] [phone] Jennie Jimenez MD Stillwell, Crystal, NP Nonischemic dilated cardiomyopathy (CMS/HCC) (Primary Dx); Congestive heart failure, unspecified HF chronicity, unspecified heart failure type (CMS/HCC) from Last 3 Months Family History Medical History Relation Name Comments Hypertension Father Hypertension Maternal Grandmother Hypertension Paternal Grandmother Relation Name Status Comments Father Maternal Grandmother Paternal Grandmother Social History Tobacco Use Types Packs/Day Years Used Date Smoking Tobacco: Every Day Cigarettes Smokeless Tobacco: Former Alcohol Use Standard Drinks/Week Comments No 0 (1 standard drink = 0.6 oz pur e alcohol) Feeling Safe Answer Date Recorded Are you in a relationship wi th someone who hurts you emotionally and/or physically? No 01/06/2025 Food Insecurity Answer Date Recorded Patient needs follow up regardin 01/06/2025 Transportation Needs Answer Date Record ed Patient needs follow up regardin 01/06/2025 Utility Needs Answer Date Recorded Patient needs follow up regardin 01/06/2025 Sex and Gender Information Value Date Recorded Sex Assigned at Not on file Legal Sex Male 12:11 AM [employer] Gender Identity Not on file Sexual Orientation Not on file Last Filed Vital Signs Vital Sign Reading Time Taken Comments Blood Pressure 142/86 02/06/2025 2:16 PM CDT Pulse 66 02/06/2025 2:16 PM CDT Temperature 36.1 C (97 F) 01/10/2025 7:59 AM CDT Respiratory Rate 17 01/10/2025 7:59 AM CDT Oxygen Saturation 91% 01/10/2025 7:59 AM CDT Inhaled Oxygen Concentration - - Weight 124.4 kg (274 lb 3.2 oz) 02/06/2025 2:16 PM CDT Height 180.3 cm (5' 11 ) 02/06/2025 2:16 PM CDT Body Mass Index 38.24 02/06/2025 2:16 PM CDT Plan of Treatment Upcoming Encounters Date Type Department Care Team (Late st Contact Info) Description 05/06/2025 2:30 PM CDT Appointment [facility] Nuclear Medicine [address] [place] [address] Bridgett Murphy NP [address] [place] [address] 05/14/2025 2:00 PM CDT Office Visit [facility] [address] [place] [phone] Jennie Jimenez MD [address] [place] [address] Bridgett Murphy NP [address] [place] [address] Health Maintenance Due Date Last Done Comments DIABETES ANNUAL FOOT EXAM 01/08/1996 DIABETES ANNUAL RETINAL EXAM 01/08/1996 DIABETES MICROALBUMIN ANNUAL SCREEN 01/08/1996 DTAP/TDAP/TD VACCINES (1 - Tdap) 1997 HEPATITIS B VACCINES (1 of 3 - 19+ 3-dose series) 12/17 COLORECTAL SCREENING 2023 Colorectal Cancer Screening 2023 FIT-DNA Q 3 years 2023 FIT/FOBT Q 1 year 2023 Flex Sig/CT Colonography Q 5 years 2023 INFLUENZA VACCINE (#1) 2025 DIABETES HBA1C Q 6 MONTHS 07/08/2025 01/06/2025 LDL CHOLESTEROL ANNUAL 2026 2025 Procedures Procedure Name Priority Date/Time Associated Diagnosis Comments ECHO LIMITED W CONTRAST AND WO DOPPLER AND COLOR Routine 04/10/2025 9:52 AM CDT Nonischemic dilated cardiomyopathy (CMS/HCC) PULSE OXIMETRY, WITH EXERCISE Routine 03/19/2025 1:30 PM CDT Congestive heart failure, unspecified HF chronicity, unspecified heart failure type (CMS/HCC) CARDIAC EVENT MONITOR Routine 02/17/2025 7:39 AM CDT LIPID RFLX Routine 2025 2:18 AM CDT HEMOGLOBIN A1C Routine 01/06/2025 10:12 PM CDT from Last 3 Months or Most Recently Relevant to Health Maintenance Results * ECHO LIMITED W CONTRAST AND WO DOPPLER AND COLOR (04/10/2025 9:52 AM CDT) EJECTION FRACTION 39 INTERFACE SYSTEM 04/10/2025 9:14 AM CDT Narrative INTERFACE SYSTEM - 04/11/2025 7:13 AM CDT [facility] Cardiovascular Services Echocardiography Laboratory [address] [place] [id number] Limited Transthoracic Echocardiography Patient: Abdifatah Toscano Study ID: ECHO LIMITED LIANNE Krishnan Gender: M : 1980 Age: 45 Room: [facility] Study 04/10/2025 Pt Outpatient Date: Status: Study 09:14:04 AM CSN #: [id number] Time: Ordering:Bridgett Murphy Product Development Actuary: MICHAEL Indications and History: Nonischemic dilated cardiomyopathy (CMS/HCC) [I42.0 (ICD-10-CM)]. Labs, prior tests, procedures, and surgery: Transthoracic echocardiogram (2025). Catheterization (01/08/2025). Summary and Conclusion: - Study data: A limited echo was performed - Left ventricle: The cavity size is moderately dilated. Global systolic function is moderately reduced. The estimated ejection fraction is 35-40%. For Epic reporting: the left ventricular ejection fraction is 39%. The longitudinal strain is -11.3% (Normal range is -18 to -25). Apical sparing of strain is noted, sometimes this can be seen in cardiac amyloid. Please correlate clinically. - Right ventricle: Systolic function is difficult to assess and probably normal. Comparison: Compared to the previous study, LV systolic functionhas not changed. Procedure information: Comparison is made to the study of 2025. Study status: Routine. Procedure: A transthoracic echocardiogram was performed. Image quality was adequate. Scanning was performed from the parasternal, apical, and subcostal acoustic windows. Intravenous contrast (Definity) was administered. There were no complications. There were no contrast reactions. A limited echo was performed Study components: M-mode, limited 2D, limited spectral Doppler, and color Doppler. Height: 180.3cm. Height: 71in. Weight: 124.4kg. Weight: 274.2lb. BMI: 38.2kg/m^2. BSA: 2.55m^2. Blood pressure: 142/86 Study date: 04/10/2025. Study time: 09:14 AM. Location: Echo laboratory. Cardiac Anatomy: LEFT VENTRICLE: The cavity size is moderately dilated. Global systolic function is moderately reduced. The estimated ejection fraction is 35-40%. For Epic reporting: the left ventricular ejection fraction is 39%. The longitudinal strain is -11.3% (Normal range is -18 to -25). RIGHT VENTRICLE: Systolic function is difficult to assess and probably normal. MITRAL VALVE: Mobility is not restricted. Measurements Left ventricle Value Left ventricle continued Value GLS, 2D -11.3 % EDV, 1-p A4C 111 ml ALEXIS, LAX 6.5 cm ESV, 1-p A4C 71 ml ESD, LAX 4.2 cm EF, 1-p A4C 36 % ALEXIS/bsa, LAX 2.6 cm/m^2 SV, 1-p A4C 40 ml ESD/bsa, LAX 1.7 cm/m^2 EDV/bsa, 1-p A4C 44 ml/m^2 FS, LAX 35 % ESV/bsa, 1-p A4C 28 ml/m^2 ESD major ax, A4C 6.9 cm SV/bsa, 1-p A4C 16 ml/m^2 ESD/bsa major ax, A4C 2.7 cm/m^2 EDV, 2-p 113 ml ALEXIS minor ax, A4C 6.9 cm ESV, 2-p 68 ml ALEXIS/bsa minor ax, A4C 2.7 cm/m^2 EF, 2-p 39 % ALEXIS major ax, A2C 8.2 cm SV, 2-p 62 ml ESD major ax, A2C 6.6 cm EDV/bsa, 2-p 44 ml/m^2 ALEXIS/bsa major ax, A2C 3.2 cm/m^2 ESV/bsa, 2-p 27 ml/m^2 ESD/bsa major ax, A2C 2.6 cm/m^2 SV/bsa, 2-p 24.5 ml/m^2 IVS, ED 0.9 cm ESD 4.2 cm Right ventricle Value ESD/bsa 1.7 cm/m^2 ALEXIS, LAX 2.7 cm PW, ED 1.0 cm ALEXIS 2.7 cm IVS/PW, ED 0.9 EDV, 1-p A2C 100 ml Mitral valve Value ESV, 1-p A2C 38 ml Vena contracta width 2.7 cm EF, 1-p A2C 38 % EDV/bsa, 1-p A2C 39 ml/m^2 Other Value ESV/bsa, 1-p A2C 15 ml/m^2 Legend: (L) and (H) yareli values outside specified reference range. [facility] Labs are accredited with the [facility] Commission - Echocardiography. Prepared and Electronically Authenticated Daniel Huerta MD Confirmed 04/11/2025 07:13 Procedure Note Daniel Huerta MD - 04/11/2025 [facility] Cardiovascular Services Echocardiography Laboratory [address] [place] [address] Limited Transthoracic Echocardiography Patient: Abdifatah Toscano Study ID: ECHO LIMITEDLIANNE Krishnan Gender: M : 1980 Age: 45 Room: [facility] Study 04/10/2025 Pt Outpatient Date: Status: Study 09:14:04 AM [facility] #: [id number] Time: Ordering:Bridgett Murphy Product Development Actuary: MICHAEL Indications and History: Nonischemic dilated cardiomyopathy(CMS/HCC) [I42.0 (ICD-10-CM)]. Labs, prior tests, procedures, and surgery: Transthoracic echocardiogram (2025). Catheterization (01/08/2025). Summary and Conclusion: - Study data: A limited echo was performed - Left ventricle: The cavity size is moderately dilated. Global systolic function is moderately reduced. The estimated ejection fraction is35-40%. For Epic reporting: the left ventricular ejection fraction is 39%. The longitudinal strain is -11.3% (Normal range is -18 to -25). Apicalsparing of strain is noted, sometimes this can be seen in cardiac amyloid.Please correlate clinically. - Right ventricle: Systolic function is difficult to assess and probably normal. Comparison: Compared to the previous study, LV systolic functionhas not changed. Procedure information: Comparison is made to the study of 2025.Study status: Routine. Procedure: A transthoracic echocardiogram wasperformed. Image quality was adequate. Scanning was performed from the parasternal, apical, and subcostal acoustic windows. Intravenous contrast (Definity)was administered. There were no complications. There were no contrastreactions. A limited echo was performed Study components: M-mode, [id number], limited spectral Doppler, and color Doppler. Height: 180.3cm. Height:71in. Weight: 124.4kg. Weight: 274.2lb. BMI: 38.2kg/m^2. BSA:2.55m^2. Blood pressure: 142/86 Study date: 04/10/2025. Study time: 09:14AM. Location: Echo laboratory. Cardiac Anatomy: LEFT VENTRICLE: The cavity size is moderately dilated. Global systolic function is moderately reduced. The estimated ejection fraction is 35-40%.For Epic reporting: the left ventricular ejection fraction is 39%. The longitudinal strain is -11.3% (Normal range is -18 to -25). RIGHT VENTRICLE: Systolic function is difficult to assess and probably normal. MITRAL VALVE: Mobility is not restricted. Measurements Left ventricle Value Left ventricle continued Value GLS, 2D -11.3 % EDV, 1-p A4C 111 ml ALEXIS, LAX 6.5 cm ESV, 1-p A4C 71 ml ESD, LAX 4.2 cm EF, 1-p A4C 36 % ALEXIS/bsa, LAX 2.6 cm/m^2 SV, 1-p A4C 40 ml ESD/bsa, LAX 1.7 cm/m^2 EDV/bsa, 1-p A4C 44ml/m^2 FS, LAX 35 % ESV/bsa, 1-p A4C 28ml/m^2 ESD major ax, A4C 6.9 cm SV/bsa, 1-p A4C 16ml/m^2 ESD/bsa major ax, A4C 2.7 cm/m^2 EDV, 2-p 113 ml ALEXIS minor ax, A4C 6.9 cm ESV, 2-p 68 ml ALEXIS/bsa minor ax, A4C 2.7 cm/m^2 EF, 2-p 39 % ALEXIS major ax, A2C 8.2 cm SV, 2-p 62 ml ESD major ax, A2C 6.6 cm EDV/bsa, 2-p 44ml/m^2 ALEXIS/bsa major ax, A2C 3.2 cm/m^2 ESV/bsa, 2-p 27ml/m^2 ESD/bsa major ax, A2C 2.6 cm/m^2 SV/bsa, 2-p 24.5ml/m^2 IVS, ED 0.9 cm ESD 4.2 cm Right ventricle Value ESD/bsa 1.7 cm/m^2 ALEXIS, LAX 2.7 cm PW, ED 1.0 cm ALEXIS 2.7 cm IVS/PW, ED 0.9 EDV, 1-p A2C 100 ml Mitral valve Value ESV, 1-p A2C 38 ml Vena contracta width 2.7 cm EF, 1-p A2C 38 % EDV/bsa, 1-p A2C 39 ml/m^2 Other Value ESV/bsa, 1-p A2C 15 ml/m^2 Legend: (L) and (H) yareli values outside specified reference range. [facility] are accredited with theIntersocietal Accreditation Commission - Echocardiography. Prepared and Electronically Authenticated Daniel Huerta MD Confirmed 04/11/2025 07:13 us Bridgett Murphy PARTY PLAN SELLING DISTRIBUTOR US ORDERABLES Final Resul t Performing Organization Address City/[facility] [[email or web address]] Co de Phone Number INTERFACE SYSTEM Refer to clinic/hospital department * PULSE OXIMETRY, WITH EXERCISE (03/19/2025 1:30 PM CDT) Narrative Jamie Mullins MD - 03/19/2025 1:30 PM CDT Jamie Mullins MD 03/19/2025 2:34 PM Six Minute Walk Test I personally reviewed the 6-minute walk test performed on 03/19/25. Low normal resting room air saturation with exertion no significant desaturation noted Patient did not qualify for supplemental oxygen at rest or with activity 6-minute walk distance of 343 m Resting tachycardia, with exertion peak heart rate of 118 with persistent tachycardia in post exercise resting period. Jamie Mullins MD,MP[facility] Pulmonary and Critical Care On 03/19/2025 at 2:33 PM. us Chris Llanes MD PFT ORDERABLES Final Res ult * CARDIAC EVENT MONITOR (02/17/2025 7:39 AM CDT) Narrative [facility] - 02/17/2025 7:39 AM CDT Bryan Al MD 02/17/2025 8:00 AM Cardiac Event Monitor Report Event Summary 19 entries were submitted for review of cardiac rhythm. 17 auto-triggered events. 2. Baseline rhythm is sinus bradycardia. HR range 29-87 3. Pt symptomatic and auto-triggered events correlate with cardiac rhythm and HR as listed above. 4. Frequent multiple entries showing sinus bradycardia with sinus pauses of 3-4 sec, longest pauses of 4.5 and 5.3 seconds with junctional escape beats and junctional rhythm. No advanced AV block seen. 5. There were occasional PACs. There were no sustained atrial or ventricular arrhythmias. Bryan Al MD us Alex Dent MD CARDIAC SERVICES ORDERABLES Fin al Result Performing Organization Address [facility] [[email or web address]] Co de Phone Number [facility] CLIA [id number] [address] [place] [address], * (ABNORMAL) LIPID RFLX (2025 2:18 AM CDT) CHOLESTEROL 144 <200 mg/dL 2025 3:03 AM CDT [facility] TRIGLYCERIDE 125 <150 mg/dL 2025 3:03 AM CDT [facility] HDL 28(L) 40 - 59 mg/dL 2025 3:03 AM CDT [facility] LDL CALCULATED 91 <100 mg/dL 2025 3:03 AM CDT [facility] NON-HDL CHOLESTEROL 116 <130 mg/dL 2025 3:03 AM T [facility] Blood Venipuncture / Unknown 2025 2:18 AM CDT 2025 2:24 AM CDT Narrative [facility] - 2025 3:03 AM CDT TOTAL CHOLESTEROL mg/dL Desirable <200 Borderline high 200-239 High >=240 TRIGLYCERIDES mg/dL Normal <150 Borderline high 150-199 High 200-499 Very high >=500 HDL CHOLESTEROL mg/dL Low <40 Normal 40-59 Desirable >=60 NON HDL CHOLESTEROL mg/dL Optimal <130 Near Optimal 130-159 Borderline High 160-189 Very High >=190 CALCULATED LDL mg/dL LDL <70, OPTIMAL if have Atherosclerotic cardiovascular disease (ASCVD) or intermediate or higher (>7.5%) 10 year risk of ASCVD including most adults with diabetes. LDL <100, Optimal in adult patients with low (<7.5%) 10 year ASCVD risk LDL 100-160, Suboptimal LDL >160, High LDL >190, Very high LDL calculated using the Friedewald equation. ATPIII Guidelines Reference Ranges for Lipid Panels (NCEP/AMA) . Stoney Arrington MD CHEMISTRY ORDERABLES Fi nal Result [facility] CLIA # [id number] [address] [address] * HEMOGLOBIN A1C (01/06/2025 10:12 PM CDT) HEMOGLOBIN A1C 5.6 <=5.6 % 2025 11:21 AM CDT [facility] EST. AVG GLUCOSE, A1C 114 mg/dL 2025 11:21 AM CDT [facility] Blood Venipuncture / Unknown 01/06/2025 10:12 PM CDT 01/06/2025 10:20 PM CDT Narrative [facility] - 2025 11:21 AM CDT HGB A1C INTERPRETATION NORMAL: <5.7% PRE-DIABETES: 5.7 - 6.4% DIABETES: 6.5% OR GREATER Stoney Arrington MD CHEMISTRY ORDERABLES nal Result [facility] CLIA # [id number] [facility] [address] from Last 3 Months or Most Recently Relevant to Health Maintenance Insurance [facility] [place] [facility] Advance Directives For more information, please contact: [phone] * Full Code (Latest Code Status on File) Date Activated Date Inactivated Comments 01/06/2025 8:38 PM 01/10/2025 3:44 PM Care Teams Sorority Mother Relationship Specialty Start Date End Date Junie Cain NP PCP - General 10/13/20
--- OUTSIDE RECORDS SUMMARY | 2025-05-06 03:30 | XMS_ITS | Clinical Summary ---
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 30 Tab None 9 Active lisinopril (PRINIVIL) 20 mg Oral tablet Take 1 Tab by mouth daily. 30 Tab 1 0 Active nortriptyline (PAMELOR) 25 mg Oral capsule Take 25 mg by mouth daily at bedtime. Active benzonatate (TESSALON) 100 mg Oral capsule Take 2 Caps by mouth 3 times daily as needed for Cough. 30 Cap None 0 Active loratadine (CLARITIN) 10 mg Oral tablet Take 1 Tab by mouth daily. 30 Tab 11 0 Active triamcinolone acetonide (NASACORT AQ) 55 mcg Both Nostril SprA Administer 2 Sprays in each nostril daily. 1 Bottle 11 0 Active albuterol (PROVENTIL,OCTAVIO PATRICK) 90 mcg/Actuation Inhalation HFAAIndications: Acute bronchitis with bronchospasm Take 2 Puffs by inhalation every 4 hours as needed for Other (See Comment) (coughing or wheezing). 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 1 Active risperidone (RISPERDAL) 2 mg Oral tablet Take 2 mg by mouth 2 times daily. Active ALPRAZolam (XANAX) 0.5 mg Oral tablet Take 0.5 mg by mouth 2 times daily. 1 Active nitroglycerin (NITROSTAT) 0.[address] 0.4 mg under tongue every 5 minutes as needed. Active haloperidol (HALDOL) 5 mg Oral tablet Take 5 mg by mouth daily at bedtime. Active methocarbamol (ROBAXIN) 500 mg Oral tablet Take 1 Tab by mouth 4 times daily. 20 Tab 0 1 Active insulin glargine (LANTUS) 100 unit/mL subCUT Soln Inject by subcutaneous injection daily. 10units at bedtime Active INSULIN LISPRO (HUMALOG SUBCUT) Inject by subcutaneous injection. 10 units daily Active HYDROcodone-acet aminophen (NORCO) 5-325 mg Oral tabletIndication s:Ankle fracture, left Take 1-2 Tabs by mouth every 4 hours as needed for Pain, Moderate. 40 Tab 0 3 Active benzonatate (TESSALON) 100 mg capsule Take 1 Capsule (100 mg) by mouth 3 times daily. 15 Capsule None 8 Active predniSONE (DELTASONE) 50 mg tablet Take 1 Tablet (50 mg) by mouth daily. 5 Tablet 8 Active crutches Type: axillary Length of Need: 99 months 1 Each 0 Active Active Problems Problem Noted Date Diagnosed Date Ankle fracture, left 12/18/2012 DM (diabetes mellitus) 12/18/2012 Depressive disorder 12/18/2012 Schizoaffective disorder 12/18/2012 Chronic bronchitis 12/18/2012 Allergic rhinitis 12/18/2012 Migraine 09/10/2009 HTN (hypertension) 09/10/2009 Family History Medical History Relation Name Comments Hypertension Father Hypertension Maternal Grandmother Hypertension Paternal Grandmother Relation Name Status Comments Father Maternal Grandmother Paternal Grandmother Social History Tobacco Use Types Packs/Day Years Used Date Smoking Tobacco: Every Day Cigarettes 0.3 23 Smokeless Tobacco: Former Alcohol Use Standard Drinks/Week Comments No 0 (1 standard drink = 0.6 oz pur e alcohol) Sex and Gender Information Value Date Recorded Sex Assigned at Not on file Legal Sex Male 7:14 AM 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 Gender Identity Not on file Sexual Orientation Not on file Occupation Industry Job Start Date Job End Date Not on file Not on file Not on file Not on file Last Filed Vital Signs Vital Sign Reading Time Taken Comments Blood Pressure 153/108 01/04/2020 1:00 PM CDT Pulse 95 01/04/2020 1:00 PM CDT Temperature 37 C (98.6 F) 01/04/2020 11:25 AM CDT Respiratory Rate 18 01/04/2020 11:25 AM CDT Oxygen Saturation 97% 01/04/2020 1:00 PM CDT Inhaled Oxygen Concentration - - Weight 95.3 kg (210 lb 1.6 oz) 01/04/2020 11:25 AM CDT Height 180.3 cm (5' 11 ) 09/22/2017 7:14 PM 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 Body Mass Index 29.3 09/22/2017 7:14 PM 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 Plan of Treatment Health Maintenance Due Date Last Done Comments DIABETES ANNUAL FOOT EXAM 01/08/1996 DIABETES ANNUAL RETINAL EXAM 01/08/1996 DIABETES HBA1C Q 6 MONTHS 01/08/1996 DIABETES MICROALBUMIN ANNUAL SCREEN 01/08/1996 LDL CHOLESTEROL ANNUAL 01/08/1996 DTAP/TDAP/TD VACCINES (1 - Tdap) 1997 HEPATITIS B VACCINES (1 of 3 - 19+ 3-dose series) 12/17 COLORECTAL SCREENING 2023 Colorectal Cancer Screening 2023 FIT-DNA Q 3 years 2023 FIT/FOBT Q 1 year 2023 Flex Sig/CT Colonography Q 5 years 2023 INFLUENZA VACCINE (#1) 2025 Insurance MEDICAID [place] Care Teams Die Maker Bench Stamping Relationship Specialty Start Date End Date Junie Cain NP PCP - General Nurse Practitioner Family 01/04/20
--- NOTE | 2025-05-06 03:32 | XRR_ITS ---
PROCEDURE INFORMATION: Exam: XR Chest Exam date and time: 05/06/2025 3:44 AM Age: 45 years old Clinical indication: Left-sided; Prior surgery; Surgery date: 6+ months; Surgery type: Coronary stent; Cough with left sided rib pain TECHNIQUE: Imaging protocol: Radiologic exam of the chest. Views: 1 view. COMPARISON: CR XR chest 1V portable [id number] 06/21/2022 1:50 PM FINDINGS: Lungs: Unremarkable. No consolidation. Pleural spaces: Unremarkable. No pleural effusion. No pneumothorax. Heart/Mediastinum: Unremarkable. No cardiomegaly. Bones/joints: Unremarkable. XR/XR chest 1V portable [id number] IMPRESSION: No acute findings.
[2025-05-06 03:39] VITALS: BP 143/88; PULSE 64; RESP 16; TEMP 37.1; O2SAT 96; BMI 34.8
--- NOTE | 2025-05-06 03:43 | ECG_ITS ---
[place] Test Date: 2025-05-06 Pat Name: Abdifatah Toscano Department: Room: Gender: Male Clinical Services Director: : 1980 Requested By: Diana Perez Order Number: [id number] Igor MD: Maeve Fernandez M.D. Measurements Intervals [place] Rate: 63 P: 49 CA: 205 QRS: -10 QRSD: 119 T: 64 QT: 393 QTc: 403 Interpretive Statements SINUS RHYTHM MODERATE INTRAVENTRICULAR CONDUCTION DELAY [105+ ms QRS DURATION, 80+ ms Q/S IN V1/V2, NO Q AND 60+ ms R IN I/aVL/V5/V6] ST DEVIATION AND MODERATE T-WAVE ABNORMALITY, CONSIDER LATERAL ISCHEMIA [-0.1+ mV T-WAVE IN I/aVL/V5/V6] Compared to ECG 06/14/2022 11:42:31 No significant changes Electronically Signed On 05-07-2025 19:24:18 CDT by Maeve Fernandez M.D. [email or web address]
--- NOTE | 2025-05-06 03:45 | W.ED.GENADLT ---
HPI - General Adult General: Chief complaint: Abdominal Pain Stated complaint: LT side ribs hurting, Sick for past few days Time Seen by Provider: 05/06/25 03:30 Source: patient Mode of arrival: ambulatory Limitations: no limitations History of Present Illness: 45-year-old male states been having cough congestion over the last 5 days. States is coughing so much that he is having some left-sided rib pain. States that pain sharp in nature much worse with cough and movement. He denies any fever denies any vomiting states the pains are minimal at rest. Related Data Home Medications ?Medication ?Instructions ?Recorded ?Confirmed acetaminophen 500 mg tablet 1,000 - 2,000 mg PO Q6H PRN Pain 03/04/22 09/25/24 lisinopril 40 mg tablet 40 mg PO QAM 03/04/22 09/25/24 pantoprazole 40 mg tablet,delayed 40 mg PO DAILY 06/14/22 09/25/24 release azithromycin 250 mg tablet 250 mg PO DAILY 09/25/24 09/25/24 mometasone-formoterol HFA 200 1 inh inhalation DAILY 09/25/24 09/25/24 mcg-5 mcg/actuation aerosol inhaler (Dulera) sulfamethoxazole 800 1 tab PO BID 09/25/24 09/25/24 mg-trimethoprim 160 mg tablet Previous Rx's ?Medication ?Instructions ?Recorded albuterol sulfate 90 mcg/actuation 2 puff inhalation QID PRN Wheezing 11/24/20 aerosol inhaler 30 days hydrocodone 5 mg-acetaminophen 325 1 tab PO Q6H PRN pain #14 tabs 06/12/22 mg tablet naproxen 500 mg tablet (Naprosyn) 500 mg PO BID PRN pain #20 tabs 05/06/25 Allergies Allergy/AdvReac Type Severity Reaction Status Date / Time aspirin Allergy ALGY-Swell Verified 05/06/25 03:44 Lip/Tongue/Throat codeine Allergy ALGY-Swell Verified 05/06/25 03:44 Lip/Tongue/Throat dapagliflozin (From [facility]) Allergy ADR-Vomitin Verified 05/06/25 03:44 g Iodinated Contrast Media Allergy ALGY-Difficulty Verified 05/06/25 03:44 Breathing Penicillins Allergy ADR-Itching Verified 05/06/25 03:44 Review of Systems Resp: Reports: non-productive cough PFSH ED PFSH: Medical History (Updated 05/06/25 @ 04:08 by Diana Perez MD) Abscess Costochondritis, acute Cardiomyopathy Reports nonischemic cardiomyopathy with EF 25 to 30% Abdominal wall cellulitis Hypertension CAD (coronary artery disease) GERD (gastroesophageal reflux disease) Surgical History Stented coronary artery S/P tendon repair Family History Other Hypertension Social History Smoking and tobacco/nicotine status: former use of tobacco/nicotine Quit status (tobacco/nicotine): has quit using Second hand smoke exposure: Yes Alcohol intake: former Substance/Drug Use: former Physical Exam Const: COMMON NORMALS: no acute distress, patient oriented x3 and healthy appearing HENMT: COMMON NORMALS: normocephalic and atraumatic HEAD & SCALP: normocephalic and atraumatic Eye: COMMON NORMALS: conjunctivae normal CONJUNCTIVA: Yes conjunctivae normal Neck/C-Spine: COMMON NORMALS: full ROM and supple Chest: COMMONS NORMALS: normal inspection of the chest OTHER: point tender of left chest Resp: COMMON NORMALS: normal respiratory effort, No retractions, No use of accessory muscles and clear to auscultation bilaterally AUSCULTATION: clear to auscultation bilaterally Cardio: COMMON NORMALS: regular rate, regular rhythm and No murmurs present (Cardio) RATE: regular rate RHYTHM: regular rhythm Extremity: COMMON NORMALS: normal to inspection and full ROM Neuro: COMMON NORMALS: patient oriented x3, moves all extremities and no focal motor deficits Psych: COMMON NORMALS: mental status grossly normal, Normal thought process present and cooperative THOUGHT PROCESS: Normal thought process present Skin: COMMON NORMALS: no rashes or lesions noted and no wounds GENERAL SKIN EXAM: no rashes or lesions noted Course Vital Signs: Vital signs: Vital Signs Temperature 98.2 F 05/06/25 04:04 Pulse Rate 64 05/06/25 04:04 Respiratory Rate 17 05/06/25 04:04 Blood Pressure 133/84 05/06/25 04:04 Pulse Oximetry 96 05/06/25 04:04 Oxygen Delivery Me thod Room Air 05/06/25 04:04 MDM - General Adult Medical Decision Making Patient presents here with cough congestion likely an upper respiratory infection x-ray here showed no pneumonia along with no pneumothorax. He does have sharp left-sided chest pain is likely chest wall pain from his cough or pleurisy he has no signs of pulmonary emboli. He has no signs of ACS his pain is atypical in nature his EKG here showed normal sinus rhythm heart rate [address] elevation QRS 119 QTc 400 unchanged compared to previous EKGs I inform his chest x-ray shows no pneumonia we will place him on Naprosyn he is to return if worsening he understands agrees to plan Medical Records I reviewed the patient's medical records. All radiology interpretation(s) finalized by discharge Discharge Plan Discharge Patient Disposition: Home Clinical Impression: Upper respiratory infection, Chest wall pain Condition: Stable Prescriptions: New naproxen [Naprosyn] 500 mg tablet 500 mg PO BID PRN (Reason: pain) Qty: 20 0RF No Action albuterol sulfate 90 mcg/actuation HFA aerosol inhaler 2 puff INHALATION QID PRN (Reason: Wheezing) 30 Days 0RF hydrocodone-acetaminophen 5-325 mg tablet 1 tab PO Q6H PRN (Reason: pain) Qty: 14 0RF azithromycin 250 mg tablet 250 mg PO DAILY sulfamethoxazole-trimethoprim 800-160 mg tablet 1 tab PO BID Dulera 200-5 mcg/actuation HFA aerosol inhaler 1 inh INHALATION DAILY acetaminophen 500 mg Tablet 1,000 - 2,000 mg PO Q6H PRN (Reason: Pain) lisinopril 40 mg tablet 40 mg PO QAM pantoprazole 40 mg tablet,delayed release (DR/EC) 40 mg PO DAILY Discharge Orders: Discharge ED (Routine); Ordered 05/06/25 Ordered By: Diana Perez Referrals: Junie Cain NP [Primary Care Provider, Nurse Practitioner] - 4-7 days Discharge Diet: Advance as tolerated Discharge Activity: Resume usual activity Patient Instructions: Upper Respiratory Infection (ED) Print Language: Ethiopian Coding Level of Care Code ED Financial Services Consultant for Adilson Cedillo
[2025-05-06 04:04] VITALS: BP 133/84; PULSE 64; RESP 17; TEMP 36.8; O2SAT 96
[2025-05-06 04:34] VITALS: BP 171/99; PULSE 68; TEMP 36.6; O2SAT 93
== END 2025-05-06 04:37 | disposition home or self-care (01) ==
PROVIDERS: Emergency Provider Emergency Medicine; PCP Nurse Practitioner Family
DX: J06.9 Acute upper respiratory infection, unspecified (principal); R07.89 Other chest pain; Z87.891 Personal history of nicotine dependence; I25.10 Atherosclerotic heart disease of native coronary artery without angina pectoris; I10 Essential (primary) hypertension
CPT/HCPCS: 71045; 93005; 96372; 99284; J1100; J1885